=== PATIENT | female | born 1965 | race Caucasian/White ===

== ENCOUNTER → 2016-08-06 | Outpatient (CLI) | payer MEDICAID, MEDICARE, OTHER ==
[2015-11-19 08:55] VITALS: BP 150/90
[~2016-08-06] MED LIST: HYDR-2672 PO
--- NOTE | 2016-08-06 17:25 | RAD ---
Three-view study of the lumbar spine Clinical indications: Low back pain for a long time. Comparison: None available. Findings: Hypoplastic 12th ribs are seen. There is fusion of L4-5 and L5-S1. There is a minimal grade 1 anterolisthesis of L2-3. More prominent grade 1-2 anterolisthesis of L3-4 is seen which measures 11.5 mm. No radiolucent pars defect is seen on this study. There is degenerative facet arthropathy throughout the lumbar spine. No compression fracture or discitis or osteolytic process is seen. Mild dextroscoliosis is seen. There is mild degenerative endplate spurring and disc space narrowing at L1-2 and L2-3. There is moderate degenerative disc space narrowing and mild endplate spurring at L3-4. IMPRESSION: Grade 1 anterolisthesis of L2-3. Grade 1-2 anterolisthesis of L3-4. No compression fracture.
== END | disposition home or self-care (01) ==
LOC: RAD 16:04
PROVIDERS: ATTEND Neurological Surgery
DX: M43.16 Spondylolisthesis, lumbar region (principal); M54.5 Low back pain
CPT/HCPCS: 72100

== ENCOUNTER → 2016-08-13 | Outpatient (CLI) | payer MEDICARE ==
[2015-11-19 08:55] VITALS: BP 150/90
--- NOTE | 2016-08-13 16:16 | RAD ---
Right hip, 2 views, 08/13/2016: History: Hip pain, lumbar radiculopathy No fracture or dislocation is identified. There is mild joint space narrowing, moderate marginal spurring and subchondral sclerosis at the right hip joint. The periarticular soft tissues are unremarkable. There are moderate degenerative changes at the symphysis pubis. There are mild sclerotic changes at the right sacroiliac joint. IMPRESSION: 1. Moderate degenerative change at the right hip joint. 2. No acute bony abnormality is detected.
--- NOTE | 2016-08-13 16:20 | RAD ---
Lumbar spine, lateral flexion and extension views, 08/13/2016: History: Lumbar radiculopathy, spondylolisthesis Image is are correlated with the study from 08/06/2016. The bony structures are demineralized. There are multilevel degenerative changes as described on the previous study. There appears to been a previous posterolateral spinal fusion at L4-5. There is a grade 1-2 spondylolisthesis at L3-4 which does not change significantly on flexion and extension.
== END | disposition home or self-care (01) ==
LOC: RAD 15:39
PROVIDERS: ATTEND Neurological Surgery
DX: M54.16 Radiculopathy, lumbar region (principal); M25.551 Pain in right hip
CPT/HCPCS: 72120; 73502

== ENCOUNTER → 2016-08-30 | Outpatient (CLI) | payer MEDICARE ==
[2015-11-19 08:55] VITALS: BP 150/90
[~2016-08-30] MED LIST changes: +CYCL10TA2 PO; +DIAZ5TAB PO; +DOCU-27 PO; +OXYC-250 PO; +OXYC-323 PO; +OXYC1TAB8 PO; +VENTOLIN HFA18 GM INH
[2016-08-30 15:28] LABS: BASO % 1 % (0-3); EOS % 6 % (0-3); HEMATOCRIT 43.8 % (36.0-47.0); LYMPH # 2.5 x10^3/uL (1.0-4.8); LYMPH % 35 % (24-48); MEAN CORPUSCULAR HEMOGLOBIN 31 pg (25-35); MEAN CORPUSCULAR HGB CONC 34 g/dL (31-37); MEAN CORPUSCULAR VOLUME 91 fL (79-100); MONO % 7 % (0-9); NEUT % 52 % (31-73); PLATELET COUNT 336 x10^3/uL (140-400); RED BLOOD COUNT 4.83 x10^6/uL (3.50-5.40); RED CELL DISTRIBUTION WIDTH 12.8 % (11.5-14.5); WHITE BLOOD COUNT 7.1 x10^3/uL (4.0-11.0)
[2016-08-30 15:38] LABS: ALBUMIN 3.7 g/dL (3.4-5.0); ALBUMIN/GLOBULIN RATIO 0.9 (1.0-1.7); CALCIUM 9.6 mg/dL (8.5-10.1); CREATININE 0.8 mg/dL (0.6-1.0); GFR 75.3; POTASSIUM 4.1 mmol/L (3.5-5.1); TOTAL BILIRUBIN 0.3 mg/dL (0.2-1.0); TOTAL PROTEIN 7.7 g/dL (6.4-8.2)
[2016-08-30 15:40] LABS: PROTHROMBIN TIME PATIENT 12.8 SEC (11.7-14.0)
--- NOTE | 2016-09-04 01:13 | HP ---
ADMIT DATE: 09/08/2016 Kamlesh Davies RN dictating for Dr. Wilfred Nicholson. Date of surgery will be 09/08/2016. HISTORY OF PRESENT ILLNESS: The patient is a pleasant 51-year-old, who has a long history of low back pain and pain which radiates into both of her lateral thighs. The right side is much more involved than the left. She says her right leg gives out because of the pain. The problem has been present with regard to back pain since childhood. More recently, she has developed significant leg pain. She says her pain can vary between 5/10 to 10/10. Bending makes her problem worse. She says that when she is painful, she has had difficulty finding relief. She says she has tried physical therapy, but was too painful to proceed. She has had epidural steroid injections in the past and says that they gave her no significant relief. She is taking [place] 10/325 to help with her pain. She feels as though her lower extremities are weak. PAST MEDICAL HISTORY: Headaches/migraines, scarlet fever, shingles, wound infection. PAST SURGICAL HISTORY: Lumbar surgery in 1984, kidney infection in 1999. FAMILY HISTORY: Bleeding problems, cancer, diabetes, heart problem/disease, migraines, spine problems. SOCIAL HISTORY: Disabled. . Does not exercise. Smokes half pack per day and has for 40 years. Does not drink. Drinks coffee and tea. ALLERGIES: TO LATEX. CURRENT MEDICATION: [place]. REVIEW OF SYSTEMS: A 12-point review of systems was obtained and is noncontributory except for that mentioned above. PHYSICAL EXAMINATION: NEUROSURGERY EXAMINATION: GENERAL APPEARANCE: Alert, pleasant, in no acute distress. HEAD: Normocephalic and atraumatic. SKIN: Warm and dry. MUSCULOSKELETAL: Lumbar paraspinal muscle bulk is normal, restricted range of motion of lumbar spine, lxeq-yv-eswlyyrn tenderness of lower lumbar spine with palpation, normal range of motion of the lower extremities bilaterally. EXTREMITIES: No clubbing, cyanosis, or edema. NEUROLOGIC: Alert and oriented x 3, normal recent and remote memory, strength 5/5 in bilateral lower extremities, sensory was intact to light touch in the bilateral lower extremities, reflexes were trace and symmetric in the lower extremities bilaterally, positive straight leg raising on the right, negative straight leg raising on the left, normal gait. IMAGING: I reviewed a lumbar MRI scan. On that study, there was spondylolisthesis at what I will call L4-L5, but which is called L3-L4 on the MRI scan. This is associated with severe lumbar stenosis. ASSESSMENT/ PLAN: She has severe lumbar spinal stenosis and spondylolisthesis at L4-L5. On flex/ ext films, there is motion at L4-5. I recommended a decompression as well as an instrumented interbody fusion at L4-5. We spoke about the technique, risks as well as expected post op course. She understands and would like to proceed. WILFRED NICHOLSON MD DR: CALLIE/lynette JOB#: [id number] / [id number] LANETTE
--- NOTE | 2016-09-04 01:20 | HP ---
ADMIT DATE: 09/08/2016 Kamlesh Davies, dictating for Dr. Wilfred Nicholson. DATE OF SURGERY: 09/08/2016 HISTORY OF PRESENT ILLNESS: The patient is a pleasant 51-year-old who has a long history of low back pain. She says she has constant back pain and rates as a 7/10. Bending and activity increase her pain. She takes [place] 10/325 twice a day. When I saw her last, I obtained flexion and extension x-rays as well as hip films. She said that since I saw her last, which is about one month ago, she has had increased pain in her lower back. Her right leg continues to be painful for her. She is fearful and may give out and is using a cane at this time. PAST MEDICAL HISTORY: Headaches, migraines, scarlet fever, shingles, wound infections. PAST SURGICAL HISTORY: Lumbar surgery in 1994, kidney infection in 1999. FAMILY HISTORY: Bleeding problems, cancer, diabetes, heart problem/disease, migraine headaches, and spine problems. SOCIAL HISTORY: Disabled. . Does not exercise. Smokes a half a pack per day for 40 years. Does not drink alcohol. Drinks coffee and tea. ALLERGIES: Latex. CURRENT MEDICATIONS: [place]. REVIEW OF SYSTEMS: A 12-point review of systems was obtained and is noncontributory except for that mentioned above. PHYSICAL EXAMINATION: NEUROSURGERY EXAMINATION: GENERAL APPEARANCE: Alert, pleasant, no acute distress. HEAD: Normocephalic and atraumatic. SKIN: Warm and dry. MUSCULOSKELETAL: Lumbar paraspinal muscle bulk is normal, restricted range of motion of the lumbar spine, pior-qe-dvgazfks tenderness of the lower lumbar spine with palpation, normal range of motion of the lower extremities bilaterally. EXTREMITIES: No clubbing, cyanosis, or edema. NEUROLOGIC: Alert and oriented x 3, normal recent and remote memory, strength 5/5 in bilateral lower extremities, sensory was intact to light touch in the lower extremities bilaterally, reflexes were present and symmetric in bilateral lower extremities, positive straight leg raising on the right side, negative straight leg raising on the left side, normal gait. IMAGING: I reviewed a lumbar MRI scan. On that study, there is a grade 1 anterolisthesis of L4-L5. She has fusion of L5-S1. There is a small grade 1 anterolisthesis of L2-L3. On the plain films, the spondylolisthesis increases to a grade 1-2 at L4-L5. There is no significant change with flexion and extension. I reviewed right hip films in which there is moderately severe degenerative arthritis of the right hip joint seen. ASSESSMENT/ PLAN: She has severe central canal stenosis with trefoil shaped canal at L4-L5. At this level when comparing her plain films, in which a grade 1-2 spondylolisthesis is seen at L4-L5 to her lumbar MRI scan, which was done with the patient supine, in which a grade 1 listhesis is seen. To help her, she will need a wide decompression at L4-L5, which I would combine with an instrumented fusion and anterior interbody fusion. I discussed with her this in detail including the technique, risks, and expected postoperative course. She would like to proceed. We will make the arrangements. WILFRED NICHOLSON MD DR: CALLIE/lynette JOB#: [id number] / [id number] LANETTE
== END | disposition home or self-care (01) ==
LOC: SURGPAT 13:45
PROVIDERS: ATTEND Neurological Surgery
DX: M48.06 Spinal stenosis, lumbar region (principal); M43.16 Spondylolisthesis, lumbar region
CPT/HCPCS: 36415; 80053; 85027; 85610; 85730; 87641

== ENCOUNTER 2016-09-08 06:32 | Inpatient (IN) | payer MEDICARE, MEDICAID ==
[~2016-09-08] VITALS: Ht 162.6 cm; Wt 76.2 kg
[2016-09-08] VITALS (10 sets, daily range): BP systolic 114–144; BP diastolic 74–98
[~2016-09-08 06:32] MED LIST changes: +CEFAZOLIN 2GM PREMIX 50 ML IV PRN; -CYCL10TA2 PO; -DIAZ5TAB PO; -DOCU-27 PO; -OXYC-250 PO; -OXYC1TAB8 PO
[2016-09-08] MEDS ORDERED: THROMBIN 20,000 UNIT SPRAY.SYRN KIT TP ONE (06:45)
[2016-09-08] MEDS ORDERED: KETOROLAC 60 MG/2 ML SYRINGE FOR OR. ONE (06:45)
[2016-09-08] MEDS ORDERED: GELATIN SPONGE SIZE 100. ONE (06:45)
[2016-09-08] MEDS ORDERED: BUPIVAC MPF-EPI 0.5%-1:200000 30 ML VIAL. ONE (06:46)
[2016-09-08] MEDS ORDERED: IV RINGERS,LACTATED 1000ML 1,000 ML IV SCH (07:00)
[2016-09-08] MEDS ORDERED: FENTANYL PF 100 MCG/2 ML VIAL. IV PRN ×2 (07:00→14:15)
[2016-09-08] MEDS ORDERED: LIDOCAINE 1% 1 ML SYRINGE. ID PRN (07:00)
[2016-09-08] MEDS ORDERED: ONDANSETRON PF 4 MG/2 ML VIAL. IV PRN ×2 (07:00→14:15)
[2016-09-08] MEDS ORDERED: MORPHINE SULFATE 2 MG/ML DISP.SYRIN. IV PRN (07:00)
[2016-09-08] MEDS ORDERED: PROCHLORPERAZINE 10 MG/2 ML VIAL. IV PRN (07:00)
[2016-09-08] MEDS ORDERED: HYDROMORPHONE 2 MG/ML VIAL. IV PRN (07:00)
[2016-09-08] MEDS ORDERED: BACITRACIN 50,000 UNIT in IV NORMAL SALINE 1000ML BAG 1,000 ML IRR ONE (08:00)
[2016-09-08] MEDS ORDERED: PROPOFOL 20 ML IV ONE (08:05)
[2016-09-08] MEDS ORDERED: REMIFENTANIL 2 MG VIAL. IV ONE (08:05)
[2016-09-08] MEDS ORDERED: LIDOCAINE 2% 100 MG/5 ML DISP.SYRIN. ONE (08:05)
[2016-09-08] MEDS ORDERED: PROPOFOL 50 ML IV ONE ×3 (08:05→13:39)
[2016-09-08] MEDS ORDERED: FENTANYL PF 100 MCG/2 ML VIAL. ONE (08:05)
[2016-09-08] MEDS ORDERED: 0.9 % SODIUM CHLORIDE 50 ML VIAL. IJ ONE (08:05)
[2016-09-08] MEDS ORDERED: SUCCINYLCHOLINE 200 MG/10 ML VIAL. ONE (08:06)
[2016-09-08] MEDS ORDERED: ROCURONIUM 50 MG/5 ML VIAL. ONE (08:06)
[2016-09-08] MEDS ORDERED: MIDAZOLAM HCL 2 MG/2 ML VIAL. ONE (08:26)
[2016-09-08] MEDS ORDERED: DESFLURANE > 120 MINUTES IH ONE (08:57)
[2016-09-08] MEDS ORDERED: DEXAMETHASONE SOD PHOS 20 MG/5 ML VIAL. ONE (08:57)
[2016-09-08] MEDS ORDERED: EPHEDRINE PF IN SALINE 50 MG/5 ML DISP.SYRIN. IV ONE (09:33)
--- NOTE | 2016-09-08 09:50 | RAD ---
CT of the lumbar spine without contrast, 09/08/2016: History: Lumbar stenosis, spondylolisthesis, brain lab study Noncontrast scans were obtained with multiplanar reconstructions produced. The data was transferred to the operating room to aid in the patient's stereotactically guided surgery. The following findings are delineated: 1. At L1-2 there is mild posterior disc bulging. The thecal sac measures 10 mm in AP dimension. The neural foramina are well maintained. 2. At L2-3 there is moderate broad-based posterior disc bulging. There are moderate least severe degenerative changes involving the facet joints, particularly on the left, with moderate posterior ligamentous thickening. The combination of findings is causing mild central spinal stenosis and mild foraminal encroachment on the left. 3. At L3-4 there are severe hypertrophic degenerative changes involving the facet joints with posterior ligamentous thickening and ligamentous calcification. There is a mild associated spondylolisthesis. There is a vacuum disc phenomena with posterior spurring and moderate broad-based posterior disc bulging. The combination is of findings is causing moderately severe central spinal stenosis and moderate bilateral foraminal encroachment at this level. 4. At L4-5 there is disc space narrowing with disc calcification and mild posterior spurring. The facet joints are partially fused, apparently on a postsurgical basis. The central spinal canal and neural foramina are widely patent at this level. 5. L5 appears to be partially sacralized. At L5-S1 the central spinal canal is slightly narrowed. The neural foramina are widely patent. PQRS Compliance Statement: One or more of the following individualized dose reduction techniques were utilized for this examination: 1. Automated exposure control 2. Adjustment of the mA and/or kV according to patient size 3. Use of iterative reconstruction technique
[2016-09-08] MEDS ORDERED: ONDANSETRON PF 4 MG/2 ML VIAL. ONE (09:55)
[2016-09-08] MEDS ORDERED: PHENYLEPHRINE in 0.9% NACL PF 1 MG/10 ML DISP.SYRIN. IV ONE (10:12)
[2016-09-08] MEDS ORDERED: DIPHENHYDRAMINE 50 MG/ML VIAL ONE (11:50)
[2016-09-08] MEDS ORDERED: CEFAZOLIN PREMIX 2 GM/50 ML BAG. IV ONE ×2 (13:00)
[2016-09-08] MEDS ORDERED: CEFAZOLIN 2GM PREMIX 50 ML IV ONE (13:30)
[2016-09-08] MEDS ORDERED: REMIFENTANIL 1 MG VIAL. IV ONE (13:55)
[2016-09-08] MEDS ORDERED: DIPHENHYDRAMINE HCL 25 MG CAPSULE PO PRN (14:15)
[2016-09-08] MEDS ORDERED: MAGNESIUM HYDROXIDE 2,400 MG/30 ML ORAL.SUSP. PO PRN (14:15)
[2016-09-08] MEDS ORDERED: ACETAMINOPHEN 325 MG TABLET. PO PRN (14:15)
[2016-09-08] MEDS ORDERED: 0.9 % SODIUM CHLORIDE 10 ML DISP.SYRIN. IV PRN (14:15)
[2016-09-08] MEDS ORDERED: DIPHENHYDRAMINE 50 MG/ML VIAL IV PRN (14:15)
[2016-09-08] MEDS ORDERED: CALCIUM CARBONATE 500 MG TAB.CHEW PO PRN (14:15)
[2016-09-08] MEDS ORDERED: ZOLPIDEM 5 MG TABLET. PO PRN (14:15)
[2016-09-08] MEDS ORDERED: MAG HYDROX/ALUMINUM HYD/SIMETH 30 ML ORAL.SUSP PO PRN (14:15)
[2016-09-08] MEDS ORDERED: OXYCODONE/APAP 5/325 TABLET. PO PRN (14:15)
[2016-09-08] MEDS: FENTANYL PF 100 MCG/2 ML VIAL. IV PRN ×7 (15:21→23:27)
[2016-09-08] MEDS ORDERED: ACETAMINOPHEN INTRAVENOUS 100 ML IV ONE (15:30)
[2016-09-08] MEDS ORDERED: ACETAMINOPHEN INTRAVENOUS 100 ML IV PRN (15:45)
[2016-09-08] MEDS: ALBUTEROL SULFATE 2.5 MG/3 ML NEBU. NEB SCH ×3 (16:00→23:16)
[2016-09-08] MEDS ORDERED: NON FORMULARY ITEM (Albuterol Sulfate (Ventolin Hfa Inhaler) 2 PUFF) INH SCH (16:00)
[2016-09-08] MEDS: POTASSIUM CL 20MEQ D5-0.45NACL 1,000 ML IV SCH (16:44)
[2016-09-08] MEDS: CEFAZOLIN SODIUM 1 GM in IV NORMAL SALINE 50ML 50 ML IV SCH ×2 (17:40→22:49)
[2016-09-08] MEDS: OXYCODONE/APAP 5/325 TABLET. PO PRN ×2 (17:45→22:49)
[2016-09-08] MEDS: CYCLOBENZAPRINE 10 MG TABLET. PO PRN (17:46)
[2016-09-08] MEDS: DOCUSATE SODIUM 100 MG CAPSULE PO SCH (22:48)
[2016-09-09] MEDS ORDERED: PNEUMOCOCCAL VAX SCREEN BY RX. MC PRN
--- NOTE | 2016-09-09 00:03 | OP ---
DATE OF SURGERY: 09/08/2016 ANTERIOR LUMBAR INTERBODY FUSION Posterior portion of the surgery has been dictated along with the preoperative and postoperative diagnosis and the indications for surgery. SURGEON: Wilfred Nicholson M.D. COMBINATION WELDER APPRENTICE: Yuri Winter M.D. DESCRIPTION OF PROCEDURE: The table was tilted away and I made an incision in the right posterior flank. I dissected it down the subcutaneous tissue and then passed the long BrainLAB probe with a sheath down to dock at the attachment of the lateral portion of the pedicle of L5 on the right just below the disc space and moved superiorly and positioned the sheath at the inferior aspect of the disc space. The nerve root was just lateral to me and stimulating, there was no evidence of contact with the nerve. I passed a K-wire and then a dilator and then a sheath and then a working channel and entered into the disc space. Through the working channel, then I performed a very generous discectomy using pituitaries as well as the endplate scrapers and frequently used the BrainLAB system to ensure that I removed a significant portion of the disc. I then passed the dilator, removed the working channel, placed the shield to again protect the outer exiting root, which was lateral to me. I along this path placed autograft bone into the disc space gently, which was packed with autograft bone. I then tapped into position a 9 mm trial and took fluoroscopic images, which I felt were satisfactory. I removed the trial and prepared the cage, which was then packed with allograft and autograft bone and then this was gently passed down the shield and again under electrophysiologic monitoring, tapped into the disc space. Fluoroscopic images showed excellent position and I released the cage, irrigated, removed the cage novelty dipper as well as the shield and then the patient was tilted back to the prone position for the remainder of the surgery. I felt this portion had gone very well. WILFRED NICHOLSON MD DR: CALLIE/lynette JOB#: [id number] / [id number] LANETTE
--- NOTE | 2016-09-09 00:36 | OP ---
DATE OF SURGERY: 09/08/2016 PREOPERATIVE DIAGNOSES: 1. Spondylolisthesis with motion, L4-L5. 2. Severe lumbar spinal stenosis, L4-L5. OPERATION PERFORMED: Lumbar laminectomy, L4-L5; posterior instrumentation, L4-L5 with posterolateral fusion, L4-L5. The operation also included an anterior lumbar discectomy, L4-L5 with an anterior interbody fusion, L4-L5 using allograft and autograft bone with placement of interbody fusion cage. The operation was done with stimulated EMG monitoring, fluoroscopy, microscopic dissection, BrainLAB guidance, bone marrow aspiration. SURGEON: Wilfred Nicholson M.D. BOTANY LABORATORY ASSISTANT: Yuri Winter MD assisted with the surgery. He assisted with the exposure, the microdecompression, instrumentation, posterolateral fusion as well as the anterior discectomy and fusion. AMILCAR Diaz assisted with the closure. OPERATIVE INDICATIONS: The patient is a pleasant 51-year-old who has developed severe lower back and lower extremity pain to the point that she was using a cane to help with ambulation. She has failed conservative measures and on imaging studies, had the above-mentioned findings. I recommended decompression and instrumented fusion. She had previously undergone a fusion at L5-S1. She understood the surgery and the risks and she understood the technique of the operation. She wished to go ahead. DESCRIPTION OF PROCEDURE: Following general endotracheal anesthesia, the patient was positioned prone on the Seth table. Her lumbar region was then prepped and draped in a standard fashion. SONJA hose and AV impulse boots were applied for DVT prophylaxis. A microscope was draped. Fluoroscopy was draped and brought into the field. Monitoring was established. Ancef 2 g was given less than 1 hour prior to initiation of the surgery. Using fluoroscopic guidance, iliac pins were placed in the left iliac crest. The BrainFieldAware system was initialized. An incision was made over the L4-L5 vertebral bodies posteriorly. Dissection was carried down to skin and subcutaneous tissue and the paraspinal muscles were reflected and self-retaining retractors were placed. The lamina and the transverse processes of L4 and L5 were visualized. Using the high speed air drill, I drilled into the posterior aspect of the pedicles of L4 and L5. Again, using the high speed air drill as well as anatomic landmarks, I passed a black ball, followed by the ball tip probe, followed by tap and on the left side, placed pedicle screws after I had aspirated 20 mL of bone marrow from the left iliac crest and mixed this with allograft bone, which was then packed into the left lateral gutter after excoriating the transverse processes and lateral facets. I used the Innovasis system and used 6.5 pedicle screws at L4 and L5. The violet was placed and nuts were placed and the system was not torqued. I then went to the right side and in a similar fashion, I cannulated the pedicles of L4 and L5, although screws were not placed at this point. I did excoriate the transverse processes and lateral facet and packed allograft bone into the right lateral gutter. I then brought in the microscope at this time and through the microscope using the high speed air drill, I burred down a very generous laminotomy on the left and crossed over and created a laminectomy from left to right trimming away the spinous process and saving this bone, morcellizing this bone for use later with the anterior fusion. I drilled away the bone on the right side, performing a generous partial foraminotomy on the right and in order to decompress, worked laterally over the facet on the right side at L4-L5. Again, I saved the bone for use with the fusion. The ligamentum flavum was heavily calcified and partly scarred to the underlying dura and I worked very gently and delicately and freed this material and peeled this off of the dura, both on the right and left sides and created a wide exposure extending from the upper mid body of L4 through the mid body of L5. This accomplished, then the pedicle screws were placed into L4 and L5. The violet was placed and I did distract slightly on the right side and then the anterior portion of the procedure was done and this will be a separate dictation. Completing the anterior portion, I then worked to help reduce the spondylolisthesis. I then explored carefully and I assured myself that the dura and the exiting roots were quite free. I did lay Gelfoam over the exposed dura and nerve root surface, irrigated copiously and then I closed the wound in layers with absorbable suture. The skin was closed with a 4-0 subcuticular stitch. The operation went very well and the patient was taken uneventfully to recovery room with normal strength in her lower extremities and was quite pleased with the surgery. WILFRED Sandip NICHOLSON MD DR: CALLIE/lynette JOB#: [id number] / [id number] LANETTE
[2016-09-09] MEDS: FENTANYL PF 100 MCG/2 ML VIAL. IV PRN ×5 (02:48→14:10)
[2016-09-09] MEDS: CYCLOBENZAPRINE 10 MG TABLET. PO PRN ×3 (02:48→14:09)
[2016-09-09 02:59] VITALS: BP 103/59
[2016-09-09] MEDS: ALBUTEROL SULFATE 2.5 MG/3 ML NEBU. NEB SCH ×3 (03:22→10:58)
[2016-09-09] MEDS: POTASSIUM CL 20MEQ D5-0.45NACL 1,000 ML IV SCH (03:30)
[2016-09-09] MEDS: OXYCODONE/APAP 5/325 TABLET. PO PRN ×3 (04:20→12:54)
[2016-09-09] MEDS: CEFAZOLIN SODIUM 1 GM in IV NORMAL SALINE 50ML 50 ML IV SCH (04:21)
[2016-09-09 06:27] VITALS: BP 95/60
[2016-09-09] MEDS: DOCUSATE SODIUM 100 MG CAPSULE PO SCH (08:24)
[2016-09-09] MEDS ORDERED: PNEUMOC CONJ VACC 23-VALENT 0.5 ML VIAL. VAX IM ONE (09:00)
[2016-09-09 11:01] VITALS: BP 93/64
--- NOTE | 2016-09-09 12:54 | DISCH ---
DISCHARGE INSTRUCTIONS Condition on Discharge Condition on Discharge: Stable Activity After Discharge Activity Instructions for Disc: Activity as tolerated, Avoid exertion Bathing Instructions: Shower-keep dressing dry Lifting Instructions after Dis: No heavy lifting, No pulling or pushing, Do not lift >10 pounds Driving Instructions after Dis: No driving for 2 weeks Diet after Discharge Additional Diet Restrictions: resume home diet Wound Incision Care Wound/Incision Care: Ice to area for comfort Other wound/incision instructi: may remove dressing in 48 hrs if dry then may shower- no soaking Contacting the [facility] after DC Call your doctor for: Concerns you may have Follow-Up Follow up with: Dr. Dunbar in 2 weeks [phone] Treatment/Equipment after DC Adaptive Equipment Issued: SONIA Mena MD Sep 09, 2016 12:54
[2016-09-09] MEDS ORDERED: OXYC1TAB8 PO (12:56)
[2016-09-09] MEDS ORDERED: DOCU-27 PO (12:56)
[2016-09-09] MEDS ORDERED: CYCL10TA2 PO (12:56)
[2016-09-09] MEDS ORDERED: OXYCODONE/APAP 7.5/325 TABLET. PO PRN ×2 (13:00)
--- NOTE | 2016-09-09 22:15 | DS ---
DATE OF DISCHARGE: 09/09/2016 DISCHARGE DIAGNOSES: 1. Spondylolisthesis with motion L4-L5. 2. Severe lumbar spinal stenosis L4-L5. OPERATIONS PERFORMED: Lumbar laminectomy L4-L5 with posterior instrumentation L4-L5 with posterior lateral fusion L4-L5, anterior lumbar diskectomy L4-L5 with anterior interbody fusion L4-L5. HISTORY OF PRESENT ILLNESS: The patient is a pleasant 51-year-old who developed severe lower back pain and lower extremity pain to the point where she was using a cane with ambulation. She failed to improve with conservative measures. Imaging studies had the above-mentioned findings. I recommended decompression and instrumented fusion. She had undergone a previous surgery at L5-S1. She understood the surgery and the risks and wished to proceed with surgery. HOSPITAL COURSE: She was admitted to the floor postoperatively where she did well. She was able to be up ambulating in the room and in the halls. Physical therapy was initiated. Instruction was given to her regarding her activities. She does note improvement in her pain from pre-surgery. Her pain is well controlled and she is in good condition to discharge home. DISCHARGE MEDICATIONS: She will resume her medications per the [facility]AD. DISCHARGE INSTRUCTIONS: She was instructed regarding incision care, activity restrictions and expectations for the next several weeks. She will follow up in our office in 2 weeks. She understands to call with any questions or concerns. SONIA NICHOLSON MD DR: ASUNCION/lynette JOB#: [id number] / [id number]
--- NOTE | 2016-09-10 12:19 | HP ---
DUPLICATE SONIA Sandip NICHOLSON MD DR: Sulaiman JOB#: [id number] / [id number] LANETTE
--- NOTE | 2016-09-10 14:54 | PATHOLOGY ---
PATHOLOGY REPORT * * * * * * * * FINAL DIAGNOSIS: Segments of fibrocartilaginous and fibroadipose tissue and bone, lumbar disc and decompression: - Degenerative changes of fibrocartilaginous tissue. COMMENT: There is no evidence of an acute inflammatory process or malignancy. (JPM:; d/t: 09/10/16) REPORT ELECTRONICALLY SIGNED BY: Navin Shaikh M.D. DATE/TIME: 09/10/2016 14:53 * * * * * * * * GROSS PATHOLOGY: Received in formalin labeled "Tamy Riggs and lumbar disc and decompression," are multiple segments of blood-tinged, white-myers to pink-myers, rubbery, and gritty tissue admixed with possible bone measuring 8.7 x 6.3 x 1.0 cm in aggregate dimensions. The tissue is submitted representatively in cassette A1, following decalcification. (TTL; 09/09/2016) INITIAL CPT CODE(S): A; 16536, 53931 Professional services performed by [facility] [address] Technical services performed by [facility] at [address] [place] [address]. SPECIMEN(S) RECEIVED: A.Lumbar disc and decompression CLINICAL HISTORY: Stenosis, spondylolisthesis PATIENT: TAMY RIGGS /AGE: 7 1965 (Age: 51) PATIENT #: [id number] ALT CASE #: SPECIMEN COLLECTION DATE: 09/08/2016 SPECIMEN RECEIVED DATE: 09/09/2016 [facility] - [address] [place] [address] - PHONE: [phone] * * * END OF REPORT * * *
== END 2016-09-09 14:45 | disposition home or self-care (01) | DRG 460 ==
LOC: OPSVCIP 06:32 → 4 SOUTHEST 16:27
PROVIDERS: ADMIT Neurological Surgery; ATTEND Neurological Surgery
PROC: 0SB20ZZ Excision of Lumbar Vertebral Disc, Open Approach (ICD-10-PCS; 2016-09-08)
PROC: 07DR3ZZ Extraction of Iliac Bone Marrow, Percutaneous Approach (ICD-10-PCS; 2016-09-08)
PROC: 0SG0071 Fusion of Lumbar Vertebral Joint with Autologous Tissue Substitute, Posterior Approach, Posterior Column, Open Approach (ICD-10-PCS; 2016-09-08)
PROC: 4A1004G Monitoring of Central Nervous Electrical Activity, Intraoperative, Open Approach (ICD-10-PCS; 2016-09-08)
PROC: 0SG00AJ Fusion of Lumbar Vertebral Joint with Interbody Fusion Device, Posterior Approach, Anterior Column, Open Approach (ICD-10-PCS; principal; 2016-09-08 09:00)
DX: M48.06 Spinal stenosis, lumbar region (principal); M43.16 Spondylolisthesis, lumbar region; G43.909 Migraine, unspecified, not intractable, without status migrainosus; M54.10 Radiculopathy, site unspecified; Z83.3 Family history of diabetes mellitus; Z87.440 Personal history of urinary (tract) infections; Z87.891 Personal history of nicotine dependence; Z91.040 Latex allergy status
CPT/HCPCS: 36415; 72131; 76000; 86850; 86900; 86901; 88304; 88311; 90732; 94640; 94760; C1713; J0131; J0330; J0690; J0780; J1100; J1200; J1885; J2250; J2370; J2405; J2704; J3010; J3490; J7030; J7120

== ENCOUNTER 2016-09-12 19:39 | Inpatient (IN) | payer MEDICARE, MEDICAID ==
[~2016-09-12] VITALS: Ht 162.6 cm; Wt 73.9 kg
[~2016-09-12 19:39] MED LIST changes: -CEFAZOLIN 2GM PREMIX 50 ML IV PRN; +CYCL10TA2 PO; +DOCU-27 PO; +OXYC1TAB8 PO
[2016-09-12] MEDS ORDERED: HYDROMORPHONE 2 MG/ML VIAL. IV ONE (20:15)
[2016-09-12] MEDS ORDERED: DIAZEPAM 10 MG/2 ML DISP.SYRIN. IV ONE (20:15)
--- NOTE | 2016-09-12 20:19 | ED.ADGEN ---
Past Medical History Past Medical History: Other Additional Past Medical Histor: SPINAL STENOSIS Past Surgical History: Hysterectomy, Other Additional Past Surgical Histo: MULTIPLE BACK SURGERY, BREAST AUGMENTATION, BUNION Additional Information: 0.5PPD Alcohol Use: None Drug Use: None Adult General Chief Complaint Chief Complaint: POST-OP PROBLEM HPI HPI Patient is a 51 year old female presents emergency department complaining of left-sided back pain. She did have a spinal fusion done 5 days ago. Immediately after surgery she stated that she has significant pain relief quickly on the right side were most of her pain had been previously. However, 3 days ago she began to develop left-sided pain. She was started on a Medrol Dosepak yesterday and thought she might be getting better but today states that she cannot bear any weight on that leg due to the sensitivity of it. She describes it as a "nerve" pain. She has been using her Percocet without any relief. She denies any fevers, chills, nausea, vomiting, bowel or bladder dysfunction. She denies any new trauma or injury to the area. Review of Systems Review of Systems Constitutional: Denies fever or chills. [] Eyes: Denies change in visual acuity. [] HENT: Denies nasal congestion or sore throat. [] Respiratory: Denies cough or shortness of breath. [] Cardiovascular: Denies chest pain or edema. [] GI: Denies abdominal pain, nausea, vomiting, bloody stools or diarrhea. [] : Denies dysuria. [] Musculoskeletal: Denies back pain or joint pain. [] Integument: Denies rash. [] Neurologic: Denies headache, focal weakness or sensory changes. [] Endocrine: Denies polyuria or polydipsia. [] Lymphatic: Denies swollen glands. [] Psychiatric: Denies depression or anxiety. [] Current Medications Current Medications Current Medications Medications (Trade) Dose Ordered Sig/Kelvin Start Time Stop Time Status Last Admin Dose Admin Diazepam (Valium) 5 mg 1X ONCE 09/12/16 20:15 09/12/16 20:16 DC 09/12/16 20:37 5 MG Hydromorphone HCl (Dilaudid) 1 mg 1X ONCE 09/12/16 20:15 09/12/16 20:16 DC 09/12/16 20:36 1 MG Morphine Sulfate 4 mg 4 mg PRN Q2HR PRN 09/12/16 21:00 09/13/16 20:59 Ondansetron HCl (Zofran) 4 mg PRN Q8HRS PRN 09/12/16 21:00 09/13/16 20:59 Sodium Chloride (Iv Sodium Chloride 0.9% 1000ml Bag) 1,000 ml @ 100 mls/hr Q10H 09/12/16 20:55 09/13/16 20:54 Allergies Allergies Allergies Coded Allergies Type Severity Reaction Last Updated Verified Latex, Natural Rubber Allergy Intermediate Itching 09/08/16 Yes Physical Exam Physical Exam Constitutional: Well developed, well nourished, no acute distress, non-toxic appearance. [] HENT: Normocephalic, atraumatic, bilateral external ears normal, oropharynx moist, no oral exudates, nose normal. [] Eyes: PERRLA, EOMI, conjunctiva normal, no discharge. [] Neck: Normal range of motion, no tenderness, supple, no stridor. [] Cardiovascular:Heart rate regular rhythm, no murmur [] Lungs & Thorax: Bilateral breath sounds clear to auscultation [] Abdomen: Bowel sounds normal, soft, no tenderness, no masses, no pulsatile masses. [] Skin: Warm, dry, no erythema, no rash. [] Back: Midline incision that is clean dry and intact without signs of infection, lumbar spine is exquisitely tender to palpation. [] Extremities: No tenderness, no cyanosis, no clubbing, ROM intact, no edema. [] Neurologic: Alert and oriented X 3, normal motor function, normal sensory function, no focal deficits noted. [] Psychologic: Affect normal, judgement normal, mood normal. [] Current Patient Data Vital Signs Vital Signs Date Time Temp Pulse Resp B/P Pulse Ox O2 Delivery O2 Flow Rate FiO2 09/12/16 20:36 98 Room Air 09/12/16 19:59 98.1 101 20 131/75 98.1 EKG EKG [] Radiology/Procedures Radiology/Procedures [] Course & Med Decision Making Course & Med Decision Making Pertinent Labs and Imaging studies reviewed. (See chart for details) I spoke with Dr. Sheehan who requests that we work on pain control, obtain plain films, obtain CT scans, and have the patient admitted for pain control tonight. The patient and her family are in agreement and appreciative of this plan. Pain was improved at time of admission. [] Dragon Disclaimer Dragon Disclaimer This electronic medical record was generated, in whole or in part, using a voice recognition dictation system. DEIDRE PIPER MD Sep 12, 2016 20:19
[2016-09-12] MEDS: IV NORMAL SALINE 1000ML BAG 1,000 ML IV SCH (20:55)
[2016-09-12] MEDS ORDERED: ONDANSETRON PF 4 MG/2 ML VIAL. IV PRN (21:00)
--- NOTE | 2016-09-12 21:17 | RAD ---
PROCEDURE CT lumbar spine without contrast. HISTORY New onset postoperative pain. Left-sided radiating from back down to ankle. Four days post fusion. TECHNIQUE Helical CT imaging of the lumbar spine is performed without IV contrast. COMPARISON None. FINDINGS There appears to be transitional lumbosacral anatomy. L5 appears sacralized. Counting from above, there is posterior fusion with bilateral pedicle screws of L3-L4. There is L3/L4 interbody spacer. There is grade 1 anterolisthesis of L3 on L4. There is posterior decompression. Tiny bubble of air is seen posterior to the central canal. Evaluation at the level of fusion is limited due to beam hardening artifact from the hardware. There is posterior paraspinal soft tissue density that is probably postsurgical. No evidence of an organized fluid collection is seen, evaluation is limited. There is disc space narrowing of L4/L5. Other disc spaces are maintained. Except as above, alignment is maintained. No loss of vertebral body height is seen. There is posterior disc bulge and facet hypertrophy at L2/L3. There appears to be moderate central canal stenosis. Neural foramina are patent. Suggest correlation with prior imaging. Irregularity at the superior endplate of T12 due to Schmorl's node. Minimal atelectasis in the posterior lower lobes. There may be small bilateral extrarenal pelvis. IMPRESSION 1. Post posterior fusion of L3-L4 with interbody spacer and posterior decompression. Grade 1 anterolisthesis of L3 on L4. Postoperative changes. No unexpected finding. 2. No acute compression fracture. 3. Degenerative spondylosis of L2/L3. Electronically signed by: Bryn Winslow MD (Sep 12, 2016 21:15:50)
--- NOTE | 2016-09-12 22:01 | ACF ---
Admission Forms Criteria PAIN MANAGEMENT [facility] Clinical Indications for Admission to Inpatient Care (Place 'X' for any and all applicable criteria): Hospital admission is needed for appropriate care of the patient because of ANY ONE of the following are present (1)(2)(3)(4)(5): [ ]I. Severe pain requiring acute inpatient management as indicated by ALL of the following (2)(5)(10): [ ]a) Continuous or frequent (eg, every 2 to 4 hours) parenteral analgesics required [A] [ ]b) Necessity (ie, alternative approaches not effective) for analgesic regimen that can only be performed or initiated in inpatient setting [X]II. Pain causing debilitation to the point of inability to function or be supported at any other level of care [ ]III. Severe side effects from pain medications as indicated by ANY ONE of the following (12)(13)(14)(15): [ ]a) Uncontrollable seizures [ ]b) Cardiac arrhythmias [ ]c) Severe volume depletion [ ]d) Vomiting that is uncontrollable at any other level of care [ ]e) Altered mental status (Gasper coma scale score less than 13) [ ]f) Obstipation with inadequate GI function to maintain nutrition [ ]g) Dehydration that is severe or persistent The original [employer] content created by [employer] has been revised. The portions of the content which have been revised are identified through the use of italic text or in bold, and [facility] has neither reviewed nor approved the modified material. All other unmodified content is copyright [employer]. Please see references footnoted in the original [facility] edition 2016 Admission Criteria Met?: Yes KASIA NASH Sep 12, 2016 22:01
[2016-09-12 23:38] VITALS: BP 125/78
[2016-09-12] MEDS: MORPHINE SULFATE 4 MG/ML DISP.SYRIN. IV PRN (23:43)
[2016-09-12] MEDS: DIAZEPAM 5 MG TABLET PO PRN (23:54)
[2016-09-13 03:12] VITALS: BP 119/64
[2016-09-13] MEDS: IV NORMAL SALINE 1000ML BAG 1,000 ML IV SCH (06:55)
[2016-09-13 07:00] VITALS: BP 84/43
--- NOTE | 2016-09-13 07:53 | RAD ---
Lumbar spine, 3 views, 09/12/2016: History: Back and leg pain Comparison is made to a study from 08/13/2016. There is a transitional type vertebrae at the lumbosacral junction which has been considered to be a sacralized L5 segment on previous exams. There is posterolateral bone graft in the lower lumbar region. Bilateral pedicle screws have been placed at L3 and L4 attached to a longitudinally oriented posterior fixation rods. There is a partially radiopaque disc spacer at this level. There appears to be an underlying laminectomy defect. There is a grade 1 spondylolisthesis at L3-4, similar to that seen on the previous exam. No acute fracture is identified. There are mild scattered marginal spurs. IMPRESSION: 1. Postsurgical changes as described above. 2. Ongoing grade 1 spondylolisthesis at L3-4. 3. No acute bony abnormality is detected.
[2016-09-13] MEDS ORDERED: OXYCODONE/APAP 7.5/325 TABLET. PO PRN (10:00)
[2016-09-13] MEDS: NICOTINE 21MG PATCH. TD SCH (10:00)
[2016-09-13] MEDS: DOCUSATE SODIUM 100 MG CAPSULE PO SCH ×2 (10:00→21:50)
[2016-09-13] MEDS: DEXAMETHASONE SOD PHOS 4 MG/ML VIAL IV SCH ×2 (10:00→18:34)
[2016-09-13] MEDS: MORPHINE SULFATE 4 MG/ML DISP.SYRIN. IV PRN ×4 (10:01→20:42)
[2016-09-13] MEDS: OXYCODONE/APAP 7.5/325 TABLET. PO PRN ×2 (10:50→20:14)
[2016-09-13 11:00] VITALS: BP 99/53
[2016-09-13] MEDS ORDERED: DEXAMETHASONE SOD PHOS 4 MG/ML VIAL IV SCH (12:00)
[2016-09-13] MEDS ORDERED: NON FORMULARY ITEM (Albuterol Sulfate (Ventolin Hfa Inhaler) 2 PUFF) INH SCH (12:00)
[2016-09-13] MEDS: ALBUTEROL SULFATE 2.5 MG/3 ML NEBU. NEB SCH ×4 (12:00→23:29)
[2016-09-13 15:00] VITALS: BP 111/69
--- NOTE | 2016-09-13 15:10 | HP ---
ADMIT DATE: 09/12/2016 HISTORY OF PRESENT ILLNESS: The patient is a pleasant 51-year-old woman who underwent lumbar surgery on the of this month. She had difficulty with back and right greater than left leg pain prior to surgery. She was discharged on 09/09/2016 and called yesterday with reports of severe left leg pain. She reports that her right leg pain resolved, but the left leg pain had slowly worsened since surgery. She was seen in the Emergency Room and admitted for further evaluation and treatment. She denies weakness, but reports feelings that her left leg may give out when she tries to ambulate because of pain. She was taking Percocet at home, which was not effective in treating her pain. She denies any problems with her incision. PAST MEDICAL HISTORY: Headache, shingles, wound infections. PAST SURGICAL HISTORY: Lumbar surgery in 1994, lumbar surgery last week as mentioned above. FAMILY HISTORY: Cancer, diabetes, heart disease, headaches, spine problems, bleeding problems. SOCIAL HISTORY: Disabled, , does not drink alcohol, smokes half pack of cigarettes per day. ALLERGIES: LATEX. MEDICATIONS: See the MRAD . She was taking Flexeril and Percocet at home prior to admission. REVIEW OF SYSTEMS: A 12-point review of systems was performed and is noncontributory except for that mentioned above. PHYSICAL EXAMINATION: GENERAL: Alert, pleasant, in mild distress because of left leg pain. HEAD: Normocephalic and atraumatic. SKIN: Warm and dry. MUSCULOSKELETAL: There is mild tenderness with palpation of the lower lumbar spine, normal range of motion of the lower extremities. EXTREMITIES: No clubbing, cyanosis or edema. NEUROLOGIC: Alert and oriented x 3. Strength is 5/5 in the bilateral lower extremities. Sensory intact in the lower extremities bilaterally. Reflexes are present and symmetric in the lower extremities bilaterally. BACK: Her lumbar incision is healing well. It is dry, flat. There is no drainage. I reviewed a lumbar CT scan and lumbar spine films. There are postoperative changes seen. I have ordered a lumbar MRI scan to be done today. I also placed her on steroids to see if this will help with her pain. SONIA NICHOLSON MD DR: ASUNCION/lynette JOB#: [id number] / [id number] LANETTE
[2016-09-13] MEDS ORDERED: GADOBUTROL 7.5 MMOL/7.5 ML VIAL IV ONE (15:45)
--- NOTE | 2016-09-13 16:24 | RAD ---
PROCEDURE MRI lumbar spine without and with contrast. HISTORY Left-sided pain, low back pain, urinary incontinence, postop on the TECHNIQUE Multiplanar multi sequential pre and post contrast MR imaging was performed of the lumbar spine. Contrast: 7.5 cc Gadavist COMPARISON There is no previous similar exam available. FINDINGS There is motion degradation. There appears to be transitional anatomy of the lumbar spine. For the purpose of this report, there has been posterolateral fusion at what is considered L3-4 at which there is grade 1 anterior spondylolisthesis. There are bilateral pedicle screws at this level attached to vertical rods. Exam does not accurately evaluate integrity of hardware. There is interbody graft at this level. There is rudimentary intervertebral disc space at what will be considered L5-S1. There is moderate to severe narrowing of the L4-5 intervertebral disc space at which there apparently some interbody calcification. Vertebral body stature is adequate. Conus terminates at what is considered T12-L1. There is no nodular enhancement of the conus or cauda equina, no significant enhancement in the intervertebral disc spaces. There is mild L3-4 endplate edema. T12-L1: Spinal canal and neural foramina are adequate. L1-L2: Spinal canal and neural foramina are adequate. L2-3: There is moderate buckling of the ligamentum flavum. Neural foramina are adequate. Spinal canal is overall adequate. L3-4: There has been posterior decompression. There is shallow posterior nonenhancing central protrusion superimposed on mild partial uncovering of the posterior aspect of the disc due to spondylolisthesis. There is a nonspecific fluid collection posteriorly at site of posterior decompression not associated with significant cervical enhancement, collection up to 3.5 cm cc by 1.9 cm transverse by up to 2.4 cm AP, results in mild mass effect upon the posterior thecal sac, discrete communication with thecal sac not fully identified on this exam. There is overall mild attenuation of the thecal sac. Left neural foramina is adequate, suspected mild narrowing of the inferior right neural foramen by shallow bulge/protrusion. L4-5: Spinal canal and neural foramina are adequate. L5-S1: Spinal canal and neural foramina are adequate. IMPRESSION 1. There is transitional anatomy of the lumbar spine. There has been posterolateral fusion and posterior decompression at what is considered L3-4. There is nonspecific fluid collection posteriorly at site of decompression at this level with mild mass effect upon the posterior thecal sac, also a shallow posterior nonenhancing protrusion at this level. There is grade 1 anterior spondylolisthesis at L3-4. 2. There is likely mild narrowing of the inferior right L3-4 neural foramen. Electronically signed by: Chris Galvin MD (Sep 13, 2016 16:22:16)
[2016-09-13 19:10] VITALS: BP 108/69
[2016-09-13] MEDS: DIAZEPAM 5 MG TABLET PO PRN (21:50)
[2016-09-13 23:54] VITALS: BP 96/50
[2016-09-14] MEDS: DEXAMETHASONE SOD PHOS 4 MG/ML VIAL IV SCH ×4 (00:39→17:41)
[2016-09-14] MEDS: IV NORMAL SALINE 1000ML BAG 1,000 ML IV SCH (00:39)
[2016-09-14] MEDS: ALBUTEROL SULFATE 2.5 MG/3 ML NEBU. NEB SCH ×6 (03:32→23:52)
[2016-09-14 03:52] VITALS: BP 105/69
[2016-09-14 07:00] VITALS: BP 119/65
[2016-09-14] MEDS: NICOTINE POLACRILEX 2MG GUM PACKAGE of 12. BC PRN ×2 (07:44→17:41)
[2016-09-14] MEDS: OXYCODONE/APAP 7.5/325 TABLET. PO PRN ×2 (07:44→12:17)
[2016-09-14] MEDS: NICOTINE 21MG PATCH. TD SCH (07:44)
[2016-09-14] MEDS: DOCUSATE SODIUM 100 MG CAPSULE PO SCH ×2 (07:44→22:25)
--- NOTE | 2016-09-14 10:34 | PDOC ---
PROGRESS NOTES Subjective Subjective resting in bed still has left leg pain but improved Objective Objective Vital Signs Date Time Temp Pulse Resp B/P Pulse Ox O2 Delivery O2 Flow Rate FiO2 09/14/16 07:44 16 Room Air 09/14/16 07:29 97 09/14/16 07:00 98.1 96 119/65 98.1 09/13/16 17:02 2.0 Intake and Output 09/14/16 07:00 Output Total 850 ml Balance -850 ml Output Urine Total 850 ml # Voids 3 Physical Exam General: Alert, Oriented X3, Cooperative Neuro: Normal speech Skin: Other (incison healing well, dry, steri strips intact) Assessment Assessment Problems Medical Problems: (1) Post-op pain Status: Acute (2) Postoperative back pain Status: Acute Plan Plan of Care Reviewed lumbar MRI with Dr. Dunbar, post op changes noted, mild stenosis, no significant nerve root compression seen Encouraged increased activity as tolerated PT Comment Review of Relevant I have reviewed the following items dot (where applicable) has been applied. Medications Current Medications Hydromorphone HCl (Dilaudid) 1 mg 1X ONCE IV Last administered on 09/12/16 20 :36; Start 09/12/16 at 20:15; Stop 09/12/16 at 20:16; Status DC Diazepam (Valium) 5 mg 1X ONCE IV Last administered on 09/12/16 20:37; Start 09/12/16 at 20:15; Stop 09/12/16 at 20:16; Status DC Ondansetron HCl (Zofran) 4 mg PRN Q8HRS PRN IV NAUSEA/VOMITING; Start 09/12/16 at 21:00; Stop 09/13/16 at 20:59; Status DC Morphine Sulfate 4 mg 4 mg PRN Q2HR PRN IV PAIN Last administered on 09/13/16 20:42; Start 09/12/16 at 21:00; Stop 09/13/16 at 20:59; Status DC Sodium Chloride (Iv Sodium Chloride 0.9% 1000ml Bag) 1,000 ml @ 100 mls/hr Q10H IV Last administered on 09/14/16 00:39; Start 09/12/16 at 20:55; Stop at 20:54; Status DC Diazepam (Valium) 5 mg PRN TID PRN PO MUSCLE SPASMS Last administered on 21:50; Start 09/12/16 at 23:00 Nicotine (Nicoderm Cq 21mg) 1 patch DAILY TD Last administered on 09/14/16 07: 44; Start 09/13/16 at 09:00 Nicotine Polacrilex (Nicorette Gum) 1 each PRN Q1HR PRN BC SMOKING CESSATION Last administered on 09/14/16 07:44; Start 09/12/16 at 23:00 Docusate Sodium (Colace) 100 mg BID PO Last administered on 09/14/16 07:44; Start 09/13/16 at 10:00 Oxycodone/ Acetaminophen (Percocet 7.5/ 325) 2 tab PRN Q4HRS PRN PO PAIN Last administered on 09/14/16 07:44; Start 09/13/16 at 10:00 Non-Formulary Medication 2 puff Q4HRS INH FOR ASTHMA; Start 09/13/16 at 12:00; Status UNV Oxycodone/ Acetaminophen (Percocet 7.5/ 325) 1 tab PRN Q4HRS PRN PO PAIN; Start 09/13/16 at 10:00 Dexamethasone Sodium Phosphate (Decadron) 4 mg Q6HRS IV ; Start 09/13/16 at 12: 00; Stop 09/13/16 at 12:00; Status DC Albuterol Sulfate (Ventolin Neb Soln) 2.5 mg Q4HRS NEB Last administered on 07:27; Start 09/13/16 at 12:00 Dexamethasone Sodium Phosphate (Decadron) 4 mg Q6HRS IV Last administered on 06:05; Start 09/13/16 at 10:00 Gadobutrol (Gadavist) 7.5 mmol 1X ONCE IV Last administered on 09/13/16 16:00 ; Start 09/13/16 at 15:45; Stop 09/13/16 at 15:46; Status DC Active Scripts Active Cyclobenzaprine Hcl 10 Mg Tablet 10 Mg PO PRN TID PRN 60 Days Oxycodon-Acetaminophen 7.5-325 (Oxycodone Hcl/Acetaminophen) 1 Each Tablet 2 Tab PO PRN Q4HRS PRN 60 Days Colace (Docusate Sodium) 100 Mg Capsule 100 Mg PO BID 60 Days Reported Ventolin Hfa Inhaler (Albuterol Sulfate) 18 Gm Hfa.aer.ad 2 Puff INH Q4HRS Not used w hile in hosp. May resume at home as needed as directed. Vitals/I & O Vital Sign - Last 24 Hours 09/13/16 09/13/16 09/13/16 09/13/16 10:50 11:00 14:52 15:00 Temp 98.5 98.1 98.5 98.1 Pulse 100 87 Resp 18 18 18 20 B/P 99/53 111/69 Pulse Ox 93 96 O2 Delivery Room Air Room Air Room Air Room Air 09/13/16 09/13/16 09/13/16 09/13/16 17:02 18:35 19:05 19:10 Temp 97.8 97.8 Pulse 99 Resp 16 16 20 B/P 108/69 Pulse Ox 95 96 O2 Delivery Nasal Cannula Room Air Room Air Room Air O2 Flow Rate 2.0 09/13/16 09/13/16 09/13/16 09/13/16 19:47 20:00 20:14 20:42 Resp 16 16 Pulse Ox 98 O2 Delivery Room Air Room Air Room Air Room Air 09/13/16 09/13/16 09/13/16 09/14/16 21:30 23:29 23:54 03:52 Temp 98.1 97.8 98.1 97.8 Pulse 103 97 Resp 16 20 20 B/P 96/50 105/69 Pulse Ox 98 97 96 O2 Delivery Room Air Room Air Room Air Room Air 09/14/16 09/14/16 09/14/16 09/14/16 07:00 07:21 07:29 07:44 Temp 98.1 98.1 Pulse 96 Resp 18 16 B/P 119/65 Pulse Ox 98 97 O2 Delivery Room Air Room Air Room Air Room Air Intake and Output 09/13/16 09/13/16 09/14/16 15:00 23:00 07:00 Output Total 600 ml 250 ml Balance -600 ml -250 ml NAVEEN DELCID APRN Sep 14, 2016 10:33
[2016-09-14 11:13] VITALS: BP 110/63
[2016-09-14] MEDS ORDERED: OXYCODONE/APAP 10/325 TABLET. PO PRN (15:00)
[2016-09-14 15:15] VITALS: BP 104/68
[2016-09-14] MEDS: OXYCODONE/APAP 10/325 TABLET. PO PRN ×2 (17:27→22:22)
[2016-09-14] MEDS: DIAZEPAM 5 MG TABLET PO PRN (19:45)
[2016-09-14] MEDS: MORPHINE SULFATE 4 MG/ML DISP.SYRIN. IV PRN (19:47)
[2016-09-14 19:55] VITALS: BP 133/79
[2016-09-14 21:14] LABS: CALCIUM 9.2 mg/dL (8.5-10.1); CREATININE 0.9 mg/dL (0.6-1.0); GFR 65.8; POTASSIUM 3.8 mmol/L (3.5-5.1)
[2016-09-14] MEDS: POTASSIUM CL 20MEQ D5-0.45NACL 1,000 ML IV SCH (22:25)
[2016-09-14 22:50] LABS: BILIRUBIN,URINE NEGATIVE (NEG); GLUCOSE,URINE NEGATIVE (NEG); NITRITE,URINE NEGATIVE (NEG); PROTEIN,URINE NEGATIVE (NEG-TRACE)
[2016-09-14 22:53] LABS: BACTERIA,URINE MANY /HPF (0-FEW); RBC,URINE 0 /HPF (0-2); SQUAMOUS EPITHELIAL CELL,UR MOD /LPF; WBC,URINE RARE /HPF (0-4)
[2016-09-14 23:37] VITALS: BP 114/70
[2016-09-15] MEDS: DEXAMETHASONE SOD PHOS 4 MG/ML VIAL IV SCH ×4 (00:53→18:30)
[2016-09-15 03:10] VITALS: BP 112/67
[2016-09-15] MEDS: ALBUTEROL SULFATE 2.5 MG/3 ML NEBU. NEB SCH ×5 (03:52→21:00)
[2016-09-15] MEDS: MORPHINE SULFATE 4 MG/ML DISP.SYRIN. IV PRN ×2 (04:43→15:01)
[2016-09-15] MEDS: OXYCODONE/APAP 10/325 TABLET. PO PRN ×2 (05:53→18:30)
[2016-09-15 07:00] VITALS: BP 111/63
[2016-09-15] MEDS ORDERED: CONTRAST GIVEN MC PRN (08:45)
[2016-09-15] MEDS ORDERED: IOHEXOL 180 MG/ML 10 ML VIAL. IJ ONE (08:45)
--- NOTE | 2016-09-15 09:46 | PDOC ---
PROGRESS NOTES Subjective Subjective c/o severe bilateral leg pain Objective Objective Vital Signs Date Time Temp Pulse Resp B/P Pulse Ox O2 Delivery O2 Flow Rate FiO2 09/15/16 07:00 97.6 92 16 111/63 97 Room Air 97.6 09/13/16 17:02 2.0 Intake and Output 09/15/16 07:00 Intake Total 2819 ml Output Total 1450 ml Balance 1369 ml Intake Oral 840 ml IV Total 479 ml Other 1500 ml Output Urine Total 1450 ml # Voids 2 Physical Exam General: Alert, Oriented X3, Cooperative Neuro: Normal speech, Other (strength normal) Assessment Assessment Problems Medical Problems: (1) Post-op pain Status: Acute (2) Postoperative back pain Status: Acute Plan Plan of Care lumbar myelogram today Comment Review of Relevant I have reviewed the following items dot (where applicable) has been applied. Labs Laboratory Tests Test 09/14/16 20:45 09/14/16 21:00 Sodium Level 141mmol/L (136-145) Potassium Level 3.8mmol/L (3.5-5.1) Chloride Level 104mmol/L (98-107) Carbon Dioxide Level 25mmol/L (21-32) Anion Gap 12 (6-14) Blood Urea Nitrogen 18mg/dL (7-20) Creatinine 0.9mg/dL (0.6-1.0) Estimated GFR (Cockcroft-Gault) 65.8 Glucose Level 130mg/dL (70-99) Calcium Level 9.2mg/dL (8.5-10.1) Urine Collection Type Unknown Urine Color Yellow Urine Clarity Cloudy Urine pH 7.0 Urine Specific Fleming 1.015 Urine Protein Negativemg/dL (NEG-TRACE) Urine Glucose (UA) Negativemg/dL (NEG) Urine Ketones (Stick) Negativemg/dL (NEG) Urine Blood Negative (NEG) Urine Nitrite Negative (NEG) Urine Bilirubin Negative (NEG) Urine Urobilinogen Dipstick 1.0mg/dL (0.2 mg/dL) Urine Leukocyte Esterase Negative (NEG) Urine RBC 0/HPF (0-2) Urine WBC Rare/HPF (0-4) Urine Squamous Epithelial Cells Mod/LPF Urine Bacteria Many/HPF (0-FEW) Laboratory Tests Test 09/14/16 20:45 09/14/16 21:00 Sodium Level 141mmol/L (136-145) Potassium Level 3.8mmol/L (3.5-5.1) Chloride Level 104mmol/L (98-107) Carbon Dioxide Level 25mmol/L (21-32) Anion Gap 12 (6-14) Blood Urea Nitrogen 18mg/dL (7-20) Creatinine 0.9mg/dL (0.6-1.0) Estimated GFR (Cockcroft-Gault) 65.8 Glucose Level 130mg/dL (70-99) Calcium Level 9.2mg/dL (8.5-10.1) Urine Collection Type Unknown Urine Color Yellow Urine Clarity Cloudy Urine pH 7.0 Urine Specific Fleming 1.015 Urine Protein Negativemg/dL (NEG-TRACE) Urine Glucose (UA) Negativemg/dL (NEG) Urine Ketones (Stick) Negativemg/dL (NEG) Urine Blood Negative (NEG) Urine Nitrite Negative (NEG) Urine Bilirubin Negative (NEG) Urine Urobilinogen Dipstick 1.0mg/dL (0.2 mg/dL) Urine Leukocyte Esterase Negative (NEG) Urine RBC 0/HPF (0-2) Urine WBC Rare/HPF (0-4) Urine Squamous Epithelial Cells Mod/LPF Urine Bacteria Many/HPF (0-FEW) Medications Current Medications Hydromorphone HCl (Dilaudid) 1 mg 1X ONCE IV Last administered on 09/12/16 20 :36; Start 09/12/16 at 20:15; Stop 09/12/16 at 20:16; Status DC Diazepam (Valium) 5 mg 1X ONCE IV Last administered on 09/12/16 20:37; Start 09/12/16 at 20:15; Stop 09/12/16 at 20:16; Status DC Ondansetron HCl (Zofran) 4 mg PRN Q8HRS PRN IV NAUSEA/VOMITING; Start 09/12/16 at 21:00; Stop 09/13/16 at 20:59; Status DC Morphine Sulfate 4 mg 4 mg PRN Q2HR PRN IV PAIN Last administered on 09/13/16 20:42; Start 09/12/16 at 21:00; Stop 09/13/16 at 20:59; Status DC Sodium Chloride (Iv Sodium Chloride 0.9% 1000ml Bag) 1,000 ml @ 100 mls/hr Q10H IV Last administered on 09/14/16 00:39; Start 09/12/16 at 20:55; Stop at 20:54; Status DC Diazepam (Valium) 5 mg PRN TID PRN PO MUSCLE SPASMS Last administered on 19:45; Start 09/12/16 at 23:00 Nicotine (Nicoderm Cq 21mg) 1 patch DAILY TD Last administered on 09/14/16 07: 44; Start 09/13/16 at 09:00 Nicotine Polacrilex (Nicorette Gum) 1 each PRN Q1HR PRN BC SMOKING CESSATION Last administered on 09/14/16 17:41; Start 09/12/16 at 23:00 Docusate Sodium (Colace) 100 mg BID PO Last administered on 09/14/16 22:25; Start 09/13/16 at 10:00 Oxycodone/ Acetaminophen (Percocet 7.5/ 325) 2 tab PRN Q4HRS PRN PO PAIN Last administered on 09/14/16 12:17; Start 09/13/16 at 10:00; Stop 09/14/16 at 15:00 ; Status DC Non-Formulary Medication 2 puff Q4HRS INH FOR ASTHMA; Start 09/13/16 at 12:00; Status UNV Oxycodone/ Acetaminophen (Percocet 7.5/ 325) 1 tab PRN Q4HRS PRN PO PAIN; Start 09/13/16 at 10:00; Stop 09/14/16 at 15:00; Status DC Dexamethasone Sodium Phosphate (Decadron) 4 mg Q6HRS IV ; Start 09/13/16 at 12: 00; Stop 09/13/16 at 12:00; Status DC Albuterol Sulfate (Ventolin Neb Soln) 2.5 mg Q4HRS NEB Last administered on 09/15 06:47; Start 09/13/16 at 12:00; Stop 09/15/16 at 08:10; Status DC Dexamethasone Sodium Phosphate (Decadron) 4 mg Q6HRS IV Last administered on 05:53; Start 09/13/16 at 10:00 Gadobutrol (Gadavist) 7.5 mmol 1X ONCE IV Last administered on 09/13/16 16:00 ; Start 09/13/16 at 15:45; Stop 09/13/16 at 15:46; Status DC Morphine Sulfate 4 mg PRN Q2HR PRN IV PAIN Last administered on 09/15/16 04:43 ; Start 09/14/16 at 15:00 Oxycodone/ Acetaminophen (Percocet 10/325) 1 tab PRN Q4HRS PRN PO PAIN; Start 09/14/16 at 15:00 Oxycodone/ Acetaminophen 2 tab 2 tab PRN Q4HRS PRN PO PAIN Last administered on 09/15/16 05:53; Start 09/14/16 at 15:15 Potassium Chloride/Dextrose/ Sod Cl (KCl 20 Meq In D5W-1/2 NS) 1,000 ml @ 75 mls/hr [id number] IV Last administered on 09/14/16 22:25; Start 09/14/16 at 20:15 Albuterol Sulfate (Ventolin Neb Soln) 2.5 mg QID NEB ; Start 09/15/16 at 13:00 Iohexol (Omnipaque 180 Mg/ml) 20 ml 1X ONCE IJ ; Start 09/15/16 at 08:45; Stop 09/15/16 at 08:46; Status DC Info (Do NOT chart on this entry -- for MONITORING) 1 each PRN DAILY PRN MC SEE COMMENTS; Start 09/15/16 at 08:45; Stop 09/17/16 at 08:44 Active Scripts Active Cyclobenzaprine Hcl 10 Mg Tablet 10 Mg PO PRN TID PRN 60 Days Oxycodon-Acetaminophen 7.5-325 (Oxycodone Hcl/Acetaminophen) 1 Each Tablet 2 Tab PO PRN Q4HRS PRN 60 Days Colace (Docusate Sodium) 100 Mg Capsule 100 Mg PO BID 60 Days Reported Ventolin Hfa Inhaler (Albuterol Sulfate) 18 Gm Hfa.aer.ad 2 Puff INH Q4HRS Not used w darrius in hosp. May resume at home as needed as directed. Vitals/I & O Vital Sign - Last 24 Hours 09/14/16 09/14/16 09/14/16 09/14/16 11:13 11:32 12:17 13:30 Temp 97.9 97.9 Pulse 90 Resp 18 18 16 B/P 110/63 Pulse Ox 97 97 O2 Delivery Room Air Room Air Room Air Room Air 09/14/16 09/14/16 09/14/16 09/14/16 15:15 15:32 17:27 18:52 Temp 97.7 97.7 Pulse 91 Resp 18 18 B/P 104/68 Pulse Ox 96 O2 Delivery Room Air Room Air Room Air Room Air 09/14/16 09/14/16 09/14/16 09/14/16 19:47 19:55 20:30 23:37 Temp 97.8 98.4 97.8 98.4 Pulse 108 95 Resp 20 18 18 B/P 133/79 114/70 Pulse Ox 100 95 O2 Delivery Room Air Room Air Room Air Room Air 09/14/16 09/15/16 09/15/16 09/15/16 23:53 03:10 04:43 05:49 Temp 97.4 97.4 Pulse 89 Resp 18 18 18 B/P 112/67 Pulse Ox 98 97 O2 Delivery Room Air Room Air Room Air 09/15/16 09/15/16 09/15/16 05:53 06:49 07:00 Temp 97.6 97.6 Pulse 92 Resp 18 16 B/P 111/63 Pulse Ox 97 97 O2 Delivery Room Air Room Air Room Air Intake and Output 09/14/16 09/14/16 09/15/16 15:00 23:00 07:00 Intake Total 600 ml 240 ml 1979 ml Output Total 750 ml 700 ml Balance -150 ml 240 ml 1279 ml SONIA NICHOLSON MD Sep 15, 2016 09:46
[2016-09-15] MEDS: NICOTINE 21MG PATCH. TD SCH (10:09)
[2016-09-15] MEDS: DOCUSATE SODIUM 100 MG CAPSULE PO SCH ×2 (10:09→21:50)
[2016-09-15] MEDS: POTASSIUM CL 20MEQ D5-0.45NACL 1,000 ML IV SCH ×2 (10:10→21:43)
[2016-09-15 11:00] VITALS: BP 100/57
[2016-09-15 15:00] VITALS: BP 104/55
--- NOTE | 2016-09-15 15:38 | RAD ---
Indication back pain. History of spinal fixation and fusion one week ago. Lumbar myelogram and post myelogram CT was explained to the patient. The risks of infection and bleeding were outlined. The possibility of damage to nerve roots was discussed. The very small possibility of seizure was discussed. The possibility of postprocedure headache necessitating placement of a blood patch was also outlined the patient. The patient understood the risks associated with the procedure and wished to proceed. A preliminary film demonstrates spinal fixation at L3-4. Interbody fusion device is noted. Disc space narrowing at L4-5 is noted. Mild spondylolisthesis of L3 relative to L4 is noted. The laminectomy defect at L3-4 was chosen to enter the thecal sac. The skin was prepped and draped in the routine fashion. Local anesthesia was accomplished with 1% lidocaine. A 25-gauge spinal needle was introduced using a midline approach. Clear CSF was encountered. Approximately 11 cc of Omnipaque 180 was introduced into the thecal sac.. Multiple films were subsequently obtained. (18 spot fluoroscopic images were obtained). The fluoroscopy time associated with the procedure was 3.[address] images were obtained. Axial images were obtained through the lower thoracic and lumbar spine. Disc cuts were obtained at all lumbar levels. Lumbar myelogram: Findings. There is slight narrowing of the thecal sac at L3-4 extending throughout the L4 vertebral body. There is no amputation of the contrast column. The conus appears unremarkable. Lateral flexion and extension views were obtained. Spondylolisthesis at L3-4 is relatively unchanged in these flexion and extension views. Postmyelogram CT: Findings The lung bases appear clear. A significant finding is not seen in the soft tissues of the visualized abdomen and pelvis. The conus appears normal. T12-L1 appears unremarkable. L1-2 appears normal. At L2-3 there is some slight encroachment of the thecal sac probably representing disc bulge. At this level the canal is narrowed to approximately 8 mm. There is no neural foraminal encroachment. At L3-4 there is soft tissue effacement of the thecal sac but only minimal canal narrowing. The canal at L3-4 is slightly narrowed to approximately 10 mm to 11 mm (anterior spondylolisthesis of L3 relative to L4 is noted). There is some moderate encroachment of the left neural foramen at L3-4. At L4-5 there is no canal narrowing or foraminal encroachment. L5-S1 also appears unremarkable. IMPRESSION: Lumbar myelogram and post myelogram CT demonstrating spinal fixation cage and interbody fusion at L3-4. Known grade 1 anterolisthesis of L3 relative to L4 noted. No abnormal movement seen with flexion and extension. Mild canal narrowing, to approximately 8 mm, at L2-3 Minimal canal narrowing, to approximately 10 to 11 mm, at L3-4. There is some left neural foraminal encroachment at this level PQRS Compliance Statement: One or more of the following individualized dose reduction techniques were utilized for this examination: 1. Automated exposure control 2. Adjustment of the mA and/or kV according to patient size 3. Use of iterative reconstruction technique
[2016-09-15 19:00] VITALS: BP 112/69
[2016-09-15] MEDS ORDERED: BISACODYL 10 MG SUPP.RECT PR PRN (20:15)
[2016-09-15] MEDS: DIAZEPAM 5 MG TABLET PO PRN (21:53)
[2016-09-15 23:00] VITALS: BP 110/70
[2016-09-16] VITALS (10 sets, daily range): BP systolic 87–107; BP diastolic 49–75
[2016-09-16] MEDS: MORPHINE SULFATE 4 MG/ML DISP.SYRIN. IV PRN ×2 (03:40→13:57)
[2016-09-16] MEDS: DEXAMETHASONE SOD PHOS 4 MG/ML VIAL IV SCH ×3 (04:00→13:56)
[2016-09-16] MEDS: OXYCODONE/APAP 10/325 TABLET. PO PRN ×2 (04:01→13:46)
[2016-09-16] MEDS ORDERED: BACITRACIN 50,000 UNIT in IV NORMAL SALINE 1000ML BAG 1,000 ML IRR ONE (06:00)
[2016-09-16] MEDS ORDERED: IV RINGERS,LACTATED 1000ML 1,000 ML IV SCH (07:00)
[2016-09-16] MEDS ORDERED: PROCHLORPERAZINE 10 MG/2 ML VIAL. IV PRN (07:00)
[2016-09-16] MEDS ORDERED: ONDANSETRON PF 4 MG/2 ML VIAL. IV PRN (07:00)
[2016-09-16] MEDS ORDERED: HYDROMORPHONE 2 MG/ML VIAL. IV PRN (07:00)
[2016-09-16] MEDS ORDERED: LIDOCAINE 1% 1 ML SYRINGE. ID PRN (07:00)
[2016-09-16] MEDS ORDERED: MORPHINE SULFATE 2 MG/ML DISP.SYRIN. IV PRN (07:00)
[2016-09-16] MEDS: ALBUTEROL SULFATE 2.5 MG/3 ML NEBU. NEB SCH ×4 (07:06→20:59)
[2016-09-16] MEDS: DIAZEPAM 5 MG TABLET PO PRN (07:14)
[2016-09-16] MEDS ORDERED: GELATIN SPONGE SIZE 100. ONE (07:26)
[2016-09-16] MEDS ORDERED: BUPIVAC MPF-EPI 0.5%-1:200000 30 ML VIAL. ONE (07:26)
[2016-09-16] MEDS ORDERED: THROMBIN 20,000 UNIT SPRAY.SYRN KIT TP ONE (07:27)
[2016-09-16] MEDS ORDERED: KETOROLAC 60 MG/2 ML SYRINGE FOR OR. ONE (07:27)
[2016-09-16] MEDS ORDERED: LIDOCAINE 2% 100 MG/5 ML DISP.SYRIN. ONE ×2 (07:37→07:59)
[2016-09-16] MEDS ORDERED: PROPOFOL 0 ML IV ONE (07:37)
[2016-09-16] MEDS ORDERED: DEXAMETHASONE SOD PHOS 20 MG/5 ML VIAL. ONE ×2 (07:39→07:59)
[2016-09-16] MEDS ORDERED: ROCURONIUM 50 MG/5 ML VIAL. ONE (07:39)
[2016-09-16] MEDS ORDERED: FENTANYL PF 100 MCG/2 ML VIAL. ONE ×2 (07:39→12:00)
[2016-09-16] MEDS ORDERED: ONDANSETRON PF 4 MG/2 ML VIAL. ONE ×2 (07:39→07:59)
[2016-09-16] MEDS ORDERED: REMIFENTANIL 2 MG VIAL. IV ONE ×3 (07:40→08:00)
[2016-09-16] MEDS ORDERED: PHENYLEPHRINE 10 MG/ML VIAL. ONE (07:59)
[2016-09-16] MEDS ORDERED: MIDAZOLAM HCL 2 MG/2 ML VIAL. ONE (07:59)
[2016-09-16] MEDS ORDERED: PROPOFOL 20 ML IV ONE (07:59)
[2016-09-16] MEDS ORDERED: PROPOFOL 50 ML IV ONE ×2 (07:59→10:22)
[2016-09-16] MEDS ORDERED: MINERAL OIL/PETROLATUM,WHITE OPHTH OINT 3.5GM TUBE. ONE (08:12)
[2016-09-16] MEDS ORDERED: CEFAZOLIN SODIUM 3 GM in IV NORMAL SALINE 100ML 100 ML IV SCH (08:30)
[2016-09-16] MEDS ORDERED: CEFAZOLIN 2GM PREMIX 50 ML IV ONE ×2 (08:49→10:30)
[2016-09-16] MEDS ORDERED: DESFLURANE 61 TO 120 MINUTES IH ONE (09:29)
[2016-09-16] MEDS ORDERED: FENTANYL PF 100 MCG/2 ML VIAL. IV PRN (12:00)
[2016-09-16] MEDS: FENTANYL PF 100 MCG/2 ML VIAL. IV PRN ×5 (12:01→21:57)
[2016-09-16] MEDS: DOCUSATE SODIUM 100 MG CAPSULE PO SCH ×2 (13:45→21:58)
[2016-09-16] MEDS: NICOTINE 21MG PATCH. TD SCH (13:46)
[2016-09-16] MEDS: POTASSIUM CL 20MEQ D5-0.45NACL 1,000 ML IV SCH ×2 (13:56→21:50)
[2016-09-16] MEDS ORDERED: MORPHINE SULFATE 30 ML IV PRN (14:45)
[2016-09-16] MEDS ORDERED: DEXAMETHASONE SOD PHOS 4 MG/ML VIAL IV SCH (20:00)
[2016-09-16 20:29] LABS: HEMATOCRIT 30.1 % (36.0-47.0); HEMOGLOBIN 9.9 g/dL (12.0-15.5)
[2016-09-17] MEDS: FENTANYL PF 100 MCG/2 ML VIAL. IV PRN ×4 (02:02→23:32)
[2016-09-17 03:00] VITALS: BP 101/55
[2016-09-17] MEDS: OXYCODONE/APAP 10/325 TABLET. PO PRN ×4 (05:26→20:44)
[2016-09-17 07:00] VITALS: BP 94/63
[2016-09-17] MEDS: POTASSIUM CL 20MEQ D5-0.45NACL 1,000 ML IV SCH ×2 (08:24→17:25)
[2016-09-17] MEDS: DOCUSATE SODIUM 100 MG CAPSULE PO SCH ×2 (08:25→20:39)
[2016-09-17] MEDS: NICOTINE 21MG PATCH. TD SCH (08:25)
[2016-09-17] MEDS: ALBUTEROL SULFATE 2.5 MG/3 ML NEBU. NEB SCH ×4 (08:32→19:47)
--- NOTE | 2016-09-17 09:54 | PDOC ---
PROGRESS NOTES Subjective Subjective POD #1 reports improvement in leg pain, still mild pain in right anterior thigh but better c/o back/ incisional pain reports that she has ambulated to without difficulty Objective Objective Vital Signs Date Time Temp Pulse Resp B/P Pulse Ox O2 Delivery O2 Flow Rate FiO2 09/17/16 09:24 99 Room Air 09/17/16 07:00 97.3 81 16 94/63 97.3 09/16/16 12:56 10.0 Intake and Output 09/17/16 07:00 Intake Total 3456 ml Output Total 50 ml Balance 3406 ml Intake Oral 420 ml IV Total 3036 ml Estimated Blood Loss 50 ml # Voids 4 # Bowel Movements 1 Physical Exam General: Alert, Oriented X3, Cooperative Neuro: Normal speech, Other (strength 5/5 in BLE) Skin: Other (Dressing C,D,I, flat) Assessment Assessment Problems Medical Problems: (1) Post-op pain Status: Acute (2) Postoperative back pain Status: Acute Plan Plan of Care encouraged increased activity as tolerated continue PT scd/ esperanza Tao likely dc tomorrow Comment Review of Relevant I have reviewed the following items dot (where applicable) has been applied. Labs Laboratory Tests Test 09/16/16 20:10 Hemoglobin 9.9g/dL (12.0-15.5) Hematocrit 30.1% (36.0-47.0) Mean Corpuscular Hemoglobin Concent 33g/dL (31-37) Laboratory Tests Test 09/16/16 20:10 Hemoglobin 9.9g/dL (12.0-15.5) Hematocrit 30.1% (36.0-47.0) Mean Corpuscular Hemoglobin Concent 33g/dL (31-37) Microbiology 09/14/16 Urine Culture - Final, Complete 09/14/16 Urine Culture Result 1 (ROBIN) - Final, Complete 09/14/16 Antimicrobic Susceptibility - Final, Complete Medications Current Medications Hydromorphone HCl (Dilaudid) 1 mg 1X ONCE IV Last administered on 09/12/16 20 :36; Start 09/12/16 at 20:15; Stop 09/12/16 at 20:16; Status DC Diazepam (Valium) 5 mg 1X ONCE IV Last administered on 09/12/16 20:37; Start 09/12/16 at 20:15; Stop 09/12/16 at 20:16; Status DC Ondansetron HCl (Zofran) 4 mg PRN Q8HRS PRN IV NAUSEA/VOMITING; Start 09/12/16 at 21:00; Stop 09/13/16 at 20:59; Status DC Morphine Sulfate 4 mg 4 mg PRN Q2HR PRN IV PAIN Last administered on 09/13/16 20:42; Start 09/12/16 at 21:00; Stop 09/13/16 at 20:59; Status DC Sodium Chloride (Iv Sodium Chloride 0.9% 1000ml Bag) 1,000 ml @ 100 mls/hr Q10H IV Last administered on 09/14/16 00:39; Start 09/12/16 at 20:55; Stop at 20:54; Status DC Diazepam (Valium) 5 mg PRN TID PRN PO MUSCLE SPASMS Last administered on 07:14; Start 09/12/16 at 23:00 Nicotine (Nicoderm Cq 21mg) 1 patch DAILY TD Last administered on 09/17/16 08: 25; Start 09/13/16 at 09:00 Nicotine Polacrilex (Nicorette Gum) 1 each PRN Q1HR PRN BC SMOKING CESSATION Last administered on 09/14/16 17:41; Start 09/12/16 at 23:00 Docusate Sodium (Colace) 100 mg BID PO Last administered on 09/17/16 08:25; Start 09/13/16 at 10:00 Oxycodone/ Acetaminophen (Percocet 7.5/ 325) 2 tab PRN Q4HRS PRN PO PAIN Last administered on 09/14/16 12:17; Start 09/13/16 at 10:00; Stop 09/14/16 at 15:00 ; Status DC Non-Formulary Medication 2 puff Q4HRS INH FOR ASTHMA; Start 09/13/16 at 12:00; Status UNV Oxycodone/ Acetaminophen (Percocet 7.5/ 325) 1 tab PRN Q4HRS PRN PO PAIN; Start 09/13/16 at 10:00; Stop 09/14/16 at 15:00; Status DC Dexamethasone Sodium Phosphate (Decadron) 4 mg Q6HRS IV ; Start 09/13/16 at 12: 00; Stop 09/13/16 at 12:00; Status DC Albuterol Sulfate (Ventolin Neb Soln) 2.5 mg Q4HRS NEB Last administered on 09/15 06:47; Start 09/13/16 at 12:00; Stop 09/15/16 at 08:10; Status DC Dexamethasone Sodium Phosphate (Decadron) 4 mg Q6HRS IV Last administered on 13:56; Start 09/13/16 at 10:00; Stop 09/16/16 at 17:51; Status DC Gadobutrol (Gadavist) 7.5 mmol 1X ONCE IV Last administered on 09/13/16 16:00 ; Start 09/13/16 at 15:45; Stop 09/13/16 at 15:46; Status DC Morphine Sulfate 4 mg PRN Q2HR PRN IV PAIN Last administered on 09/16/16 13:57 ; Start 09/14/16 at 15:00; Stop 09/16/16 at 19:16; Status DC Oxycodone/ Acetaminophen (Percocet 10/325) 1 tab PRN Q4HRS PRN PO PAIN Last administered on 09/16/16 18:03; Start 09/14/16 at 15:00 Oxycodone/ Acetaminophen 2 tab 2 tab PRN Q4HRS PRN PO PAIN Last administered on 09/17/16 09:24; Start 09/14/16 at 15:15 Potassium Chloride/Dextrose/ Sod Cl (KCl 20 Meq In D5W-1/2 NS) 1,000 ml @ 100 mls/hr Q10H IV Last administered on 09/17/16 08:24; Start 09/14/16 at 20:15 Albuterol Sulfate (Ventolin Neb Soln) 2.5 mg QID NEB Last administered on 08:32; Start 09/15/16 at 13:00 Iohexol (Omnipaque 180 Mg/ml) 20 ml 1X ONCE IJ Last administered on 09/15/16 14:24; Start 09/15/16 at 08:45; Stop 09/15/16 at 08:46; Status DC Info 1 each 1 each PRN DAILY PRN MC SEE COMMENTS; Start 09/15/16 at 08:45; Stop 09/17/16 at 08:44; Status DC Cefazolin Sodium/ Sodium Chloride (Ancef/Iv Sodium Chloride 0.9% 100ml) 100 ml @ 200 mls/hr 1X PREOP IV ; Start 09/16/16 at 08:30 Ondansetron HCl (Zofran) 4 mg PRN Q6HRS PRN IV Nausea; Start 09/16/16 at 07:00; Stop 09/17/16 at 06:59; Status DC Morphine Sulfate 1 mg 1 mg PRN Q10MIN PRN IV SEVERE PAIN; Start 09/16/16 at 07: 00; Stop 09/16/16 at 20:04; Status DC Lactated Ringer's (Iv Lactated Ringers) 1,000 ml @ 0 mls/hr Q0M IV Last administered on 09/16/16 08:13; Start 09/16/16 at 07:00; Stop 09/16/16 at 18:59; Status DC Lidocaine HCl 2 ml 1X PRN PRN ID IV START; Start 09/16/16 at 07:00; Stop at 06:59; Status DC Hydromorphone HCl (Dilaudid) 0.5 mg PRN Q10MIN PRN IV SEVERE PAIN, Second choice; Start 09/16/16 at 07:00; Stop 09/16/16 at 20:04; Status DC Prochlorperazine Edisylate 5 mg 5 mg PACU PRN PRN IV NAUSEA; Start 09/16/16 at 07:00; Stop 09/17/16 at 06:59; Status DC Bacitracin/Sodium Chloride (Iv Sodium Chloride 0.9% 1000ml Bag) 1,000 ml @ 1, 000 mls/hr 1X PERIOP ONCE IRR ; Start 09/16/16 at 06:00; Stop 09/16/16 at 06:59; Status DC Bisacodyl (Dulcolax Supp) 10 mg PRN DAILY PRN MO CONSTIPATION Last administered on 09/15/16t 21:11; Start 09/15/16 at 20:15 Polyethylene Glycol (miraLAX PACKET) 17 gm PRN BID PRN PO CONSTIPATION; Start 09/15/16 at 20:15 Bupivacaine HCl/ Epinephrine Bitart (Sensorcain-Mpf Epi 0.5%-[id number]) 30 ml STK -MED ONCE .ROUTE Last administered on 09/16/16 09:47; Start 09/16/16 at 07:26; Stop 09/16/16 at 07:27; Status DC Gelatin (Gelfoam Size 100) 1 each STK-MED ONCE .ROUTE Last administered on 09/16 09:47; Start 09/16/16 at 07:26; Stop 09/16/16 at 07:27; Status DC Ketorolac Tromethamine (Toradol For Or Only) 60 mg STK-MED ONCE .ROUTE Last administered on 09/16/16 09:47; Start 09/16/16 at 07:27; Stop 09/16/16 at 07:28; Status DC Thrombin 64267 unit 20,000 unit STK-MED ONCE TP Last administered on 09/16/16 09:47; Start 09/16/16 at 07:27; Stop 09/16/16 at 07:28; Status DC Propofol (Diprivan) 0 ml @ As Directed STK-MED ONCE IV ; Start 09/16/16 at 07:37 ; Stop 09/16/16 at 07:38; Status DC Lidocaine HCl 100 mg STK-MED ONCE .ROUTE ; Start 09/16/16 at 07:37; Stop 09/16/16 at 07:38; Status DC Dexamethasone Sodium Phosphate (Decadron) 20 mg STK-MED ONCE .ROUTE ; Start 09/16 at 07:39; Stop 09/16/16 at 07:40; Status DC Ondansetron HCl (Zofran) 4 mg STK-MED ONCE .ROUTE ; Start 09/16/16 at 07:39; Stop 09/16/16 at 07:40; Status DC Rocuronium [place] (Zemuron) 50 mg STK-MED ONCE .ROUTE ; Start 09/16/16 at 07:39 ; Stop 09/16/16 at 07:40; Status DC Fentanyl Citrate (Fentanyl 2ml Vial) 100 mcg STK-MED ONCE .ROUTE ; Start at 07:39; Stop 09/16/16 at 07:40; Status DC Remifentanil HCl (Ultiva) 2 mg STK-MED ONCE IV ; Start 09/16/16 at 07:40; Stop at 07:41; Status DC Remifentanil HCl (Ultiva) 2 mg STK-MED ONCE IV ; Start 09/16/16 at 07:40; Stop at 07:41; Status DC Dexamethasone Sodium Phosphate (Decadron) 20 mg STK-MED ONCE .ROUTE ; Start 09/16 at 07:59; Stop 09/16/16 at 08:00; Status DC Ondansetron HCl 4 mg 4 mg STK-MED ONCE .ROUTE ; Start 09/16/16 at 07:59; Stop 09/16/16 at 08:00; Status DC Propofol 50 ml @ As Directed STK-MED ONCE IV ; Start 09/16/16 at 07:59; Stop 09/16 at 08:00; Status DC Propofol (Diprivan) 20 ml @ As Directed STK-MED ONCE IV ; Start 09/16/16 at 07:59 ; Stop 09/16/16 at 08:00; Status DC Lidocaine HCl 100 mg STK-MED ONCE .ROUTE ; Start 09/16/16 at 07:59; Stop 09/16/16 at 08:00; Status DC Phenylephrine HCl (Boni-Synephrine Inj) 10 mg STK-MED ONCE .ROUTE ; Start at 07:59; Stop 09/16/16 at 08:00; Status DC Midazolam HCl (Versed) 2 mg STK-MED ONCE .ROUTE ; Start 09/16/16 at 07:59; Stop 09/16/16 at 08:00; Status DC Remifentanil HCl (Ultiva) 2 mg STK-MED ONCE IV ; Start 09/16/16 at 08:00; Stop at 08:01; Status DC Multi-Ingred Cream/Lotion/Oil/ Oint 7 yehuda 7 yehuda STK-MED ONCE .ROUTE ; Start 09/16 at 08:12; Stop 09/16/16 at 08:13; Status DC Cefazolin Sodium/ Dextrose (Ancef 2gm Premix) 50 ml @ As Directed STK-MED ONCE IV ; Start 09/16/16 at 08:49; Stop 09/16/16 at 08:50; Status DC Desflurane 60 ml 60 ml STK-MED ONCE IH ; Start 09/16/16 at 09:29; Stop 09/16/16 at 09:30; Status DC Cefazolin Sodium/ Dextrose 50 ml @ 100 mls/hr 1X ONCE IV Last administered on 09/16/16 09:38; Start 09/16/16 at 10:30; Stop 09/16/16 at 10:59; Status DC Propofol (Diprivan) 50 ml @ As Directed STK-MED ONCE IV ; Start 09/16/16 at 10:22 ; Stop 09/16/16 at 10:23; Status DC Fentanyl Citrate (Fentanyl 2ml Vial) 25 mcg PRN Q5MIN PRN IV Acute Pain; Start 09/16/16 at 12:00; Stop 09/16/16 at 20:04; Status DC Fentanyl Citrate (Fentanyl 2ml Vial) 50 mcg PRN Q5MIN PRN IV Acute Pain Last administered on 09/16/16 12:56; Start 09/16/16 at 12:00; Stop 09/16/16 at 20:04; Status DC Fentanyl Citrate 100 mcg 100 mcg STK-MED ONCE .ROUTE ; Start 09/16/16 at 12:00; Stop 09/16/16 at 12:01; Status DC Morphine Sulfate (Morphine 30 Mg/ 30 ml [employer]) 30 ml @ 0 mls/hr CONT PRN PRN IV PROTOCOL; Start 09/16/16 at 14:45; Stop 09/16/16 at 20:04; Status DC Dexamethasone Sodium Phosphate (Decadron) 4 mg Q6H IV ; Start 09/16/16 at 20:00; Stop 09/16/16 at 20:00; Status DC Fentanyl Citrate (Fentanyl 2ml Vial) 50 mcg PRN Q1HR PRN IV PAIN Last administered on 09/17/16 04:41; Start 09/16/16 at 20:00 Active Scripts Active Cyclobenzaprine Hcl 10 Mg Tablet 10 Mg PO PRN TID PRN 60 Days Oxycodon-Acetaminophen 7.5-325 (Oxycodone Hcl/Acetaminophen) 1 Each Tablet 2 Tab PO PRN Q4HRS PRN 60 Days Colace (Docusate Sodium) 100 Mg Capsule 100 Mg PO BID 60 Days Reported Ventolin Hfa Inhaler (Albuterol Sulfate) 18 Gm Hfa.aer.ad 2 Puff INH Q4HRS Not used w hile in hosp. May resume at home as needed as directed. Vitals/I & O Vital Sign - Last 24 Hours 09/16/16 09/16/16 09/16/16 09/16/16 11:47 11:47 12:01 12:02 Temp 97.6 97.6 Pulse 82 78 Resp 18 18 18 B/P 128/75 115/74 Pulse Ox 100 100 100 O2 Delivery Mask Simple Mask Simple Mask Simple Mask O2 Flow Rate 10 10 10.0 10 09/16/16 09/16/16 09/16/16 09/16/16 12:17 12:25 12:32 12:37 Pulse 74 72 Resp 18 20 16 B/P 126/44 104/70 Pulse Ox 100 100 99 O2 Delivery Simple Mask Room Air Room Air Room Air O2 Flow Rate 10 09/16/16 09/16/16 09/16/16 09/16/16 12:42 12:47 12:56 13:02 Temp 97.6 97.6 97.6 97.6 Pulse 72 68 Resp 16 16 16 B/P 105/68 114/56 Pulse Ox 99 98 98 99 O2 Delivery Room Air Room Air Room Air Room Air O2 Flow Rate 10.0 09/16/16 09/16/16 09/16/16 09/16/16 13:39 13:46 13:54 13:57 Temp 97.8 97.8 Pulse 65 92 Resp 18 B/P 100/61 95/64 Pulse Ox 94 99 99 O2 Delivery Room Air Room Air Room Air Room Air 09/16/16 09/16/16 09/16/16 09/16/16 14:09 14:24 14:39 14:40 Pulse 73 85 92 B/P 107/62 95/62 93/62 Pulse Ox 96 97 98 98 O2 Delivery Room Air Room Air Room Air Room Air 09/16/16 09/16/16 09/16/16 09/16/16 14:40 14:50 15:09 18:00 Pulse 102 Resp 18 B/P 88/49 87/58 Pulse Ox 98 98 96 O2 Delivery Room Air Room Air 09/16/16 09/16/16 09/16/16 09/16/16 18:03 19:05 20:05 20:10 Pulse 83 Resp 15 B/P 106/66 Pulse Ox 96 96 99 O2 Delivery Room Air Room Air Room Air 09/16/16 09/16/16 09/16/16 09/17/16 20:59 21:57 23:00 02:02 Temp 97.3 97.3 Pulse 105 Resp 18 B/P 95/54 Pulse Ox 99 100 O2 Delivery Room Air Room Air Room Air Room Air 09/17/16 09/17/16 09/17/16 09/17/16 03:00 04:41 05:26 05:28 Temp 97.4 97.4 Pulse 90 Resp 18 B/P 101/55 Pulse Ox 100 O2 Delivery Room Air Room Air Room Air Room Air 09/17/16 09/17/16 09/17/16 09/17/16 06:36 07:00 08:00 08:32 Temp 97.3 97.3 Pulse 81 Resp 16 B/P 94/63 Pulse Ox 96 99 O2 Delivery Room Air Room Air Room Air Room Air 09/17/16 09:24 Pulse Ox 99 O2 Delivery Room Air Intake and Output 09/16/16 09/16/16 09/17/16 15:00 23:00 07:00 Intake Total 850 ml 840 ml 1766 ml Output Total 50 ml Balance 800 ml 840 ml 1766 ml NAVEEN DELCID APRN Sep 17, 2016 09:54
[2016-09-17 11:00] VITALS: BP 95/49
[2016-09-17] MEDS: NICOTINE POLACRILEX 2MG GUM PACKAGE of 12. BC PRN (11:38)
[2016-09-17 15:00] VITALS: BP 112/56
--- NOTE | 2016-09-17 15:27 | PATHOLOGY ---
PATHOLOGY REPORT * * * * * * * * FINAL DIAGNOSIS: Segments of fibrocartilaginous and fibroadipose tissue and bone, lumbar decompression: - Degenerative changes of fibrocartilaginous tissue. COMMENT: There is no evidence of an acute inflammatory process or malignancy. (JPM:xuan; d/t: 09/17/2016) REPORT ELECTRONICALLY SIGNED BY: Navin Shaikh M.D. DATE/TIME: 09/17/2016 15:26 * * * * * * * * GROSS PATHOLOGY: Received in formalin labeled "Tamy Riggs and lumbar decompression," are multiple segments of blood-tinged, white-myers rubbery and gritty tissue admixed with possible bone measuring 4.8 x 2.5 x 1.4 cm in aggregate dimensions. The tissue is submitted in cassette A1, following decalcification. (TTL:xuan; 09/16/2016) INITIAL CPT CODE(S): A; 02309, 62700 Professional services performed by [email or web address] [address] Technical services performed by [email or web address] at [address] [place] [address]. SPECIMEN(S) RECEIVED: A.Lumbar decompression CLINICAL HISTORY: Bilateral leg pain, mild stenosis PATIENT: NICHOLAS RIGGSI Cyndee /AGE: 7 1965 (Age: 51) PATIENT #: [id number] ALT CASE #: SPECIMEN COLLECTION DATE: 09/16/2016 SPECIMEN RECEIVED DATE: 09/16/2016 [facility] - [address] [place] [address] - PHONE: [phone] * * * END OF REPORT * * *
[2016-09-17 19:33] VITALS: BP 81/50
[2016-09-17 23:44] VITALS: BP 91/52
[2016-09-18] MEDS: OXYCODONE/APAP 10/325 TABLET. PO PRN ×6 (01:09→23:37)
[2016-09-18 03:00] VITALS: BP 81/51
[2016-09-18] MEDS: POTASSIUM CL 20MEQ D5-0.45NACL 1,000 ML IV SCH (05:30)
[2016-09-18 07:00] VITALS: BP 88/55
[2016-09-18] MEDS: ALBUTEROL SULFATE 2.5 MG/3 ML NEBU. NEB SCH ×4 (07:01→19:37)
[2016-09-18] MEDS: DOCUSATE SODIUM 100 MG CAPSULE PO SCH ×2 (09:00→20:35)
[2016-09-18] MEDS: NICOTINE 21MG PATCH. TD SCH (09:00)
[2016-09-18 11:00] VITALS: BP 96/59
[2016-09-18] MEDS ORDERED: DIAZ5TAB PO (13:13)
[2016-09-18] MEDS ORDERED: OXYC-250 PO (13:13)
[2016-09-18 15:00] VITALS: BP 87/50
[2016-09-18] MEDS: FENTANYL PF 100 MCG/2 ML VIAL. IV PRN ×3 (15:35→23:50)
[2016-09-18 19:00] VITALS: BP 88/50
--- NOTE | 2016-09-18 22:57 | PDOC ---
PROGRESS NOTES Subjective Subjective patient seen at 1310 pain improved wants to go home Objective Objective Vital Signs Date Time Temp Pulse Resp B/P Pulse Ox O2 Delivery O2 Flow Rate FiO2 09/18/16 20:12 20 98 Room Air 09/18/16 19:00 98.9 99 88/50 98.9 09/18/16 16:05 10.0 Intake and Output 09/18/16 07:00 Intake Total 2446 ml Balance 2446 ml Intake Oral 250 ml IV Total 2196 ml # Voids 2 Physical Exam General: Alert, Oriented X3, Cooperative, No acute distress Neuro: Other (LE strength normal) Skin: Other (dressing C,D,I,flat) Assessment Assessment Problems Medical Problems: (1) Post-op pain Status: Acute (2) Postoperative back pain Status: Acute Plan Plan of Care may dc home f/u 2 weeks Comment Review of Relevant I have reviewed the following items dot (where applicable) has been applied. Labs Microbiology 09/14/16 Urine Culture - Final, Complete 09/14/16 Urine Culture Result 1 (ROBIN) - Final, Complete 09/14/16 Antimicrobic Susceptibility - Final, Complete Medications Current Medications Hydromorphone HCl (Dilaudid) 1 mg 1X ONCE IV Last administered on 09/12/16 20 :36; Start 09/12/16 at 20:15; Stop 09/12/16 at 20:16; Status DC Diazepam (Valium) 5 mg 1X ONCE IV Last administered on 09/12/16 20:37; Start 09/12/16 at 20:15; Stop 09/12/16 at 20:16; Status DC Ondansetron HCl (Zofran) 4 mg PRN Q8HRS PRN IV NAUSEA/VOMITING; Start 09/12/16 at 21:00; Stop 09/13/16 at 20:59; Status DC Morphine Sulfate 4 mg 4 mg PRN Q2HR PRN IV PAIN Last administered on 09/13/16 20:42; Start 09/12/16 at 21:00; Stop 09/13/16 at 20:59; Status DC Sodium Chloride (Iv Sodium Chloride 0.9% 1000ml Bag) 1,000 ml @ 100 mls/hr Q10H IV Last administered on 09/14/16 00:39; Start 09/12/16 at 20:55; Stop at 20:54; Status DC Diazepam (Valium) 5 mg PRN TID PRN PO MUSCLE SPASMS Last administered on 07:14; Start 09/12/16 at 23:00 Nicotine (Nicoderm Cq 21mg) 1 patch DAILY TD Last administered on 09/18/16 09: 00; Start 09/13/16 at 09:00 Nicotine Polacrilex (Nicorette Gum) 1 each PRN Q1HR PRN BC SMOKING CESSATION Last administered on 09/17/16 11:38; Start 09/12/16 at 23:00 Docusate Sodium (Colace) 100 mg BID PO Last administered on 09/18/16 20:35; Start 09/13/16 at 10:00 Oxycodone/ Acetaminophen (Percocet 7.5/ 325) 2 tab PRN Q4HRS PRN PO PAIN Last administered on 09/14/16 12:17; Start 09/13/16 at 10:00; Stop 09/14/16 at 15:00 ; Status DC Non-Formulary Medication 2 puff Q4HRS INH FOR ASTHMA; Start 09/13/16 at 12:00; Status UNV Oxycodone/ Acetaminophen (Percocet 7.5/ 325) 1 tab PRN Q4HRS PRN PO PAIN; Start 09/13/16 at 10:00; Stop 09/14/16 at 15:00; Status DC Dexamethasone Sodium Phosphate (Decadron) 4 mg Q6HRS IV ; Start 09/13/16 at 12: 00; Stop 09/13/16 at 12:00; Status DC Albuterol Sulfate (Ventolin Neb Soln) 2.5 mg Q4HRS NEB Last administered on 09/15 06:47; Start 09/13/16 at 12:00; Stop 09/15/16 at 08:10; Status DC Dexamethasone Sodium Phosphate (Decadron) 4 mg Q6HRS IV Last administered on 13:56; Start 09/13/16 at 10:00; Stop 09/16/16 at 17:51; Status DC Gadobutrol (Gadavist) 7.5 mmol 1X ONCE IV Last administered on 09/13/16 16:00 ; Start 09/13/16 at 15:45; Stop 09/13/16 at 15:46; Status DC Morphine Sulfate 4 mg PRN Q2HR PRN IV PAIN Last administered on 09/16/16 13:57 ; Start 09/14/16 at 15:00; Stop 09/16/16 at 19:16; Status DC Oxycodone/ Acetaminophen (Percocet 10/325) 1 tab PRN Q4HRS PRN PO PAIN Last administered on 09/16/16 18:03; Start 09/14/16 at 15:00 Oxycodone/ Acetaminophen 2 tab 2 tab PRN Q4HRS PRN PO PAIN Last administered on 09/18/16 19:42; Start 09/14/16 at 15:15 Potassium Chloride/Dextrose/ Sod Cl (KCl 20 Meq In D5W-1/2 NS) 1,000 ml @ 75 mls/hr [id number] IV Last administered on 09/18/16 05:30; Start 09/14/16 at 20:15 ; Stop 09/18/16 at 15:14; Status DC Albuterol Sulfate (Ventolin Neb Soln) 2.5 mg QID NEB Last administered on 19:37; Start 09/15/16 at 13:00 Iohexol (Omnipaque 180 Mg/ml) 20 ml 1X ONCE IJ Last administered on 09/15/16 14:24; Start 09/15/16 at 08:45; Stop 09/15/16 at 08:46; Status DC Info 1 each 1 each PRN DAILY PRN MC SEE COMMENTS; Start 09/15/16 at 08:45; Stop 09/17/16 at 08:44; Status DC Cefazolin Sodium/ Sodium Chloride (Ancef/Iv Sodium Chloride 0.9% 100ml) 100 ml @ 200 mls/hr 1X PREOP IV ; Start 09/16/16 at 08:30; Stop 09/18/16 at 15:29; Status DC Ondansetron HCl (Zofran) 4 mg PRN Q6HRS PRN IV Nausea; Start 09/16/16 at 07:00; Stop 09/17/16 at 06:59; Status DC Morphine Sulfate 1 mg 1 mg PRN Q10MIN PRN IV SEVERE PAIN; Start 09/16/16 at 07: 00; Stop 09/16/16 at 20:04; Status DC Lactated Ringer's (Iv Lactated Ringers) 1,000 ml @ 0 mls/hr Q0M IV Last administered on 09/16/16 08:13; Start 09/16/16 at 07:00; Stop 09/16/16 at 18:59; Status DC Lidocaine HCl 2 ml 1X PRN PRN ID IV START; Start 09/16/16 at 07:00; Stop at 06:59; Status DC Hydromorphone HCl (Dilaudid) 0.5 mg PRN Q10MIN PRN IV SEVERE PAIN, Second choice; Start 09/16/16 at 07:00; Stop 09/16/16 at 20:04; Status DC Prochlorperazine Edisylate 5 mg 5 mg PACU PRN PRN IV NAUSEA; Start 09/16/16 at 07:00; Stop 09/17/16 at 06:59; Status DC Bacitracin/Sodium Chloride (Iv Sodium Chloride 0.9% 1000ml Bag) 1,000 ml @ 1, 000 mls/hr 1X PERIOP ONCE IRR ; Start 09/16/16 at 06:00; Stop 09/16/16 at 06:59; Status DC Bisacodyl (Dulcolax Supp) 10 mg PRN DAILY PRN [place] CONSTIPATION Last administered on 09/15/16 21:11; Start 09/15/16 at 20:15 Polyethylene Glycol (miraLAX PACKET) 17 gm PRN BID PRN PO CONSTIPATION; Start 09/15/16 at 20:15 Bupivacaine HCl/ Epinephrine Bitart (Sensorcain-Mpf Epi 0.5%-1:872244) 30 ml STK -MED ONCE .ROUTE Last administered on 09/16/16 09:47; Start 09/16/16 at 07:26; Stop 09/16/16 at 07:27; Status DC Gelatin (Gelfoam Size 100) 1 each STK-MED ONCE .ROUTE Last administered on 09/16 09:47; Start 09/16/16 at 07:26; Stop 09/16/16 at 07:27; Status DC Ketorolac Tromethamine (Toradol For Or Only) 60 mg STK-MED ONCE .ROUTE Last administered on 09/16/16 09:47; Start 09/16/16 at 07:27; Stop 09/16/16 at 07:28; Status DC Thrombin 85272 unit 20,000 unit STK-MED ONCE TP Last administered on 09/16/16t 09:47; Start 09/16/16 at 07:27; Stop 09/16/16 at 07:28; Status DC Propofol (Diprivan) 0 ml @ As Directed STK-MED ONCE IV ; Start 09/16/16 at 07:37 ; Stop 09/16/16 at 07:38; Status DC Lidocaine HCl 100 mg STK-MED ONCE .ROUTE ; Start 09/16/16 at 07:37; Stop 09/16/16 at 07:38; Status DC Dexamethasone Sodium Phosphate (Decadron) 20 mg STK-MED ONCE .ROUTE ; Start 09/16 at 07:39; Stop 09/16/16 at 07:40; Status DC Ondansetron HCl (Zofran) 4 mg STK-MED ONCE .ROUTE ; Start 09/16/16 at 07:39; Stop 09/16/16 at 07:40; Status DC Rocuronium [place] (Zemuron) 50 mg STK-MED ONCE .ROUTE ; Start 09/16/16 at 07:39 ; Stop 09/16/16 at 07:40; Status DC Fentanyl Citrate (Fentanyl 2ml Vial) 100 mcg STK-MED ONCE .ROUTE ; Start at 07:39; Stop 09/16/16 at 07:40; Status DC Remifentanil HCl (Ultiva) 2 mg STK-MED ONCE IV ; Start 09/16/16 at 07:40; Stop at 07:41; Status DC Remifentanil HCl (Ultiva) 2 mg STK-MED ONCE IV ; Start 09/16/16 at 07:40; Stop at 07:41; Status DC Dexamethasone Sodium Phosphate (Decadron) 20 mg STK-MED ONCE .ROUTE ; Start 09/16 at 07:59; Stop 09/16/16 at 08:00; Status DC Ondansetron HCl 4 mg 4 mg STK-MED ONCE .ROUTE ; Start 09/16/16 at 07:59; Stop 09/16/16 at 08:00; Status DC Propofol 50 ml @ As Directed STK-MED ONCE IV ; Start 09/16/16 at 07:59; Stop 09/16 at 08:00; Status DC Propofol (Diprivan) 20 ml @ As Directed STK-MED ONCE IV ; Start 09/16/16 at 07:59 ; Stop 09/16/16 at 08:00; Status DC Lidocaine HCl 100 mg STK-MED ONCE .ROUTE ; Start 09/16/16 at 07:59; Stop 09/16/16 at 08:00; Status DC Phenylephrine HCl (Boni-Synephrine Inj) 10 mg STK-MED ONCE .ROUTE ; Start at 07:59; Stop 09/16/16 at 08:00; Status DC Midazolam HCl (Versed) 2 mg STK-MED ONCE .ROUTE ; Start 09/16/16 at 07:59; Stop 09/16/16 at 08:00; Status DC Remifentanil HCl (Ultiva) 2 mg STK-MED ONCE IV ; Start 09/16/16 at 08:00; Stop at 08:01; Status DC Multi-Ingred Cream/Lotion/Oil/ Oint 7 yehuda 7 yehuda STK-MED ONCE .ROUTE ; Start 09/16 at 08:12; Stop 09/16/16 at 08:13; Status DC Cefazolin Sodium/ Dextrose (Ancef 2gm Premix) 50 ml @ As Directed STK-MED ONCE IV ; Start 09/16/16 at 08:49; Stop 09/16/16 at 08:50; Status DC Desflurane 60 ml 60 ml STK-MED ONCE IH ; Start 09/16/16 at 09:29; Stop 09/16/16 at 09:30; Status DC Cefazolin Sodium/ Dextrose 50 ml @ 100 mls/hr 1X ONCE IV Last administered on 09/16/16t 09:38; Start 09/16/16 at 10:30; Stop 09/16/16 at 10:59; Status DC Propofol (Diprivan) 50 ml @ As Directed STK-MED ONCE IV ; Start 09/16/16 at 10:22 ; Stop 09/16/16 at 10:23; Status DC Fentanyl Citrate (Fentanyl 2ml Vial) 25 mcg PRN Q5MIN PRN IV Acute Pain; Start 09/16/16 at 12:00; Stop 09/16/16 at 20:04; Status DC Fentanyl Citrate (Fentanyl 2ml Vial) 50 mcg PRN Q5MIN PRN IV Acute Pain Last administered on 09/16/16 12:56; Start 09/16/16 at 12:00; Stop 09/16/16 at 20:04; Status DC Fentanyl Citrate 100 mcg 100 mcg STK-MED ONCE .ROUTE ; Start 09/16/16 at 12:00; Stop 09/16/16 at 12:01; Status DC Morphine Sulfate (Morphine 30 Mg/ 30 ml [employer]) 30 ml @ 0 mls/hr CONT PRN PRN IV PROTOCOL; Start 09/16/16 at 14:45; Stop 09/16/16 at 20:04; Status DC Dexamethasone Sodium Phosphate (Decadron) 4 mg Q6H IV ; Start 09/16/16 at 20:00; Stop 09/16/16 at 20:00; Status DC Fentanyl Citrate (Fentanyl 2ml Vial) 50 mcg PRN Q1HR PRN IV PAIN Last administered on 09/18/16 19:42; Start 09/16/16 at 20:00 Active Scripts Active Cyclobenzaprine Hcl 10 Mg Tablet 10 Mg PO PRN TID PRN 60 Days Oxycodon-Acetaminophen 7.5-325 (Oxycodone Hcl/Acetaminophen) 1 Each Tablet 2 Tab PO PRN Q4HRS PRN 60 Days Colace (Docusate Sodium) 100 Mg Capsule 100 Mg PO BID 60 Days Reported Percocet 10-325 Mg Tablet (Oxycodone/Acetaminophen) 1 Each Tablet 1 Tab PO QID PRN Percocet 10-325 Mg Tablet (Oxycodone/Acetaminophen) 1 Each Tablet 1 Tab PO QID PRN Valium (Diazepam) 5 Mg Tablet 5 Mg PO TID PRN Ventolin Hfa Inhaler (Albuterol Sulfate) 18 Gm Hfa.aer.ad 2 Puff INH Q4HRS Not used w hile in hosp. May resume at home as needed as directed. Vitals/I & O Vital Sign - Last 24 Hours 09/17/16 09/17/16 09/18/16 09/18/16 23:32 23:44 01:09 03:00 Temp 97.8 96.4 97.8 96.4 Pulse 87 80 Resp 18 19 B/P 91/52 81/51 Pulse Ox 97 98 O2 Delivery Room Air Room Air Room Air Room Air 09/18/16 09/18/16 09/18/16 09/18/16 05:20 07:00 07:02 08:00 Temp 97.7 97.7 Pulse 96 Resp 18 B/P 88/55 Pulse Ox 98 96 O2 Delivery Room Air Room Air Room Air Room Air O2 Flow Rate 10.0 09/18/16 09/18/16 09/18/16 09/18/16 09:01 10:01 10:37 11:00 Temp 98.1 98.1 Pulse 87 Resp 19 18 B/P 96/59 Pulse Ox 96 100 O2 Delivery Room Air Room Air Room Air O2 Flow Rate 10.0 09/18/16 09/18/16 09/18/16 09/18/16 13:59 14:45 15:00 15:35 Temp 98.1 98.1 Pulse 89 Resp 18 16 18 16 B/P 87/50 Pulse Ox 98 O2 Delivery Room Air Room Air Room Air Room Air 09/18/16 09/18/16 09/18/16 09/18/16 16:05 19:00 19:37 19:42 Temp 98.9 98.9 Pulse 99 Resp 18 20 B/P 88/50 Pulse Ox 98 100 98 O2 Delivery Room Air Room Air Room Air O2 Flow Rate 10.0 09/18/16 09/18/16 19:42 20:12 Resp 20 20 Pulse Ox 98 98 O2 Delivery Room Air Room Air Intake and Output 09/17/16 09/17/16 09/18/16 15:00 23:00 07:00 Intake Total 1190 ml 1256 ml Balance 1190 ml 1256 ml SONIA NICHOLSON MD Sep 18, 2016 22:57
[2016-09-18 23:00] VITALS: BP 91/59
[2016-09-19 03:00] VITALS: BP 87/50
[2016-09-19] MEDS: FENTANYL PF 100 MCG/2 ML VIAL. IV PRN ×3 (05:06→23:41)
[2016-09-19] MEDS: OXYCODONE/APAP 10/325 TABLET. PO PRN ×2 (05:06→08:58)
[2016-09-19 07:00] VITALS: BP 83/57
[2016-09-19] MEDS: ALBUTEROL SULFATE 2.5 MG/3 ML NEBU. NEB SCH ×4 (07:05→20:34)
[2016-09-19] MEDS: NICOTINE 21MG PATCH. TD SCH (08:57)
[2016-09-19] MEDS: DOCUSATE SODIUM 100 MG CAPSULE PO SCH ×2 (08:58→19:51)
[2016-09-19 11:00] VITALS: BP 71/45
[2016-09-19] MEDS: IV NORMAL SALINE 1000ML BAG 1,000 ML IV SCH ×2 (11:15→21:15)
--- NOTE | 2016-09-19 12:03 | PDOC ---
PROGRESS NOTES Subjective Subjective c/o back pain, no leg pain Objective Objective Vital Signs Date Time Temp Pulse Resp B/P Pulse Ox O2 Delivery O2 Flow Rate FiO2 09/19/16 11:30 Room Air 09/19/16 11:00 98.9 91 18 71/45 94 98.9 09/19/16 10:49 10.0 Intake and Output 09/19/16 07:00 # Voids 3 Physical Exam General: Alert, Oriented X3, Cooperative MUSCULOSKELETAL: Other ([place]) Neuro: Normal speech, Other (strength in LE normal) Skin: Other (dressing intact, flat, small SS drainge) Assessment Assessment Problems Medical Problems: (1) Post-op pain Status: Acute (2) Postoperative back pain Status: Acute Plan Plan of Care resume IVF labs encouraged increased as tolerated pain medication Comment Review of Relevant I have reviewed the following items dot (where applicable) has been applied. Labs Microbiology 09/14/16 Urine Culture - Final, Complete 09/14/16 Urine Culture Result 1 (ROBIN) - Final, Complete 09/14/16 Antimicrobic Susceptibility - Final, Complete Medications Current Medications Hydromorphone HCl (Dilaudid) 1 mg 1X ONCE IV Last administered on 09/12/16 20 :36; Start 09/12/16 at 20:15; Stop 09/12/16 at 20:16; Status DC Diazepam (Valium) 5 mg 1X ONCE IV Last administered on 09/12/16 20:37; Start 09/12/16 at 20:15; Stop 09/12/16 at 20:16; Status DC Ondansetron HCl (Zofran) 4 mg PRN Q8HRS PRN IV NAUSEA/VOMITING; Start 09/12/16 at 21:00; Stop 09/13/16 at 20:59; Status DC Morphine Sulfate 4 mg 4 mg PRN Q2HR PRN IV PAIN Last administered on 09/13/16 20:42; Start 09/12/16 at 21:00; Stop 09/13/16 at 20:59; Status DC Sodium Chloride (Iv Sodium Chloride 0.9% 1000ml Bag) 1,000 ml @ 100 mls/hr Q10H IV Last administered on 09/14/16 00:39; Start 09/12/16 at 20:55; Stop at 20:54; Status DC Diazepam (Valium) 5 mg PRN TID PRN PO MUSCLE SPASMS Last administered on 07:14; Start 09/12/16 at 23:00 Nicotine (Nicoderm Cq 21mg) 1 patch DAILY TD Last administered on 09/19/16 08: 57; Start 09/13/16 at 09:00 Nicotine Polacrilex (Nicorette Gum) 1 each PRN Q1HR PRN BC SMOKING CESSATION Last administered on 09/17/16 11:38; Start 09/12/16 at 23:00 Docusate Sodium (Colace) 100 mg BID PO Last administered on 09/19/16 08:58; Start 09/13/16 at 10:00 Oxycodone/ Acetaminophen (Percocet 7.5/ 325) 2 tab PRN Q4HRS PRN PO PAIN Last administered on 09/14/16 12:17; Start 09/13/16 at 10:00; Stop 09/14/16 at 15:00 ; Status DC Non-Formulary Medication 2 puff Q4HRS INH FOR ASTHMA; Start 09/13/16 at 12:00; Status UNV Oxycodone/ Acetaminophen (Percocet 7.5/ 325) 1 tab PRN Q4HRS PRN PO PAIN; Start 09/13/16 at 10:00; Stop 09/14/16 at 15:00; Status DC Dexamethasone Sodium Phosphate (Decadron) 4 mg Q6HRS IV ; Start 09/13/16 at 12: 00; Stop 09/13/16 at 12:00; Status DC Albuterol Sulfate (Ventolin Neb Soln) 2.5 mg Q4HRS NEB Last administered on 09/15 06:47; Start 09/13/16 at 12:00; Stop 09/15/16 at 08:10; Status DC Dexamethasone Sodium Phosphate (Decadron) 4 mg Q6HRS IV Last administered on 13:56; Start 09/13/16 at 10:00; Stop 09/16/16 at 17:51; Status DC Gadobutrol (Gadavist) 7.5 mmol 1X ONCE IV Last administered on 09/13/16 16:00 ; Start 09/13/16 at 15:45; Stop 09/13/16 at 15:46; Status DC Morphine Sulfate 4 mg PRN Q2HR PRN IV PAIN Last administered on 09/16/16 13:57 ; Start 09/14/16 at 15:00; Stop 09/16/16 at 19:16; Status DC Oxycodone/ Acetaminophen (Percocet 10/325) 1 tab PRN Q4HRS PRN PO PAIN Last administered on 09/16/16 18:03; Start 09/14/16 at 15:00; Stop 09/19/16 at 11:51; Status DC Oxycodone/ Acetaminophen 2 tab 2 tab PRN Q4HRS PRN PO PAIN Last administered on 09/19/16 08:58; Start 09/14/16 at 15:15; Stop 09/19/16 at 11:51; Status DC Potassium Chloride/Dextrose/ Sod Cl (KCl 20 Meq In D5W-1/2 NS) 1,000 ml @ 75 mls/hr [id number] IV Last administered on 09/18/16 05:30; Start 09/14/16 at 20:15 ; Stop 09/18/16 at 15:14; Status DC Albuterol Sulfate (Ventolin Neb Soln) 2.5 mg QID NEB Last administered on 11:27; Start 09/15/16 at 13:00 Iohexol (Omnipaque 180 Mg/ml) 20 ml 1X ONCE IJ Last administered on 09/15/16 14:24; Start 09/15/16 at 08:45; Stop 09/15/16 at 08:46; Status DC Info 1 each 1 each PRN DAILY PRN MC SEE COMMENTS; Start 09/15/16 at 08:45; Stop 09/17/16 at 08:44; Status DC Cefazolin Sodium/ Sodium Chloride (Ancef/Iv Sodium Chloride 0.9% 100ml) 100 ml @ 200 mls/hr 1X PREOP IV ; Start 09/16/16 at 08:30; Stop 09/18/16 at 15:29; Status DC Ondansetron HCl (Zofran) 4 mg PRN Q6HRS PRN IV Nausea; Start 09/16/16 at 07:00; Stop 09/17/16 at 06:59; Status DC Morphine Sulfate 1 mg 1 mg PRN Q10MIN PRN IV SEVERE PAIN; Start 09/16/16 at 07: 00; Stop 09/16/16 at 20:04; Status DC Lactated Ringer's (Iv Lactated Ringers) 1,000 ml @ 0 mls/hr Q0M IV Last administered on 09/16/16 08:13; Start 09/16/16 at 07:00; Stop 09/16/16 at 18:59; Status DC Lidocaine HCl 2 ml 1X PRN PRN ID IV START; Start 09/16/16 at 07:00; Stop at 06:59; Status DC Hydromorphone HCl (Dilaudid) 0.5 mg PRN Q10MIN PRN IV SEVERE PAIN, Second choice; Start 09/16/16 at 07:00; Stop 09/16/16 at 20:04; Status DC Prochlorperazine Edisylate 5 mg 5 mg PACU PRN PRN IV NAUSEA; Start 09/16/16 at 07:00; Stop 09/17/16 at 06:59; Status DC Bacitracin/Sodium Chloride (Iv Sodium Chloride 0.9% 1000ml Bag) 1,000 ml @ 1, 000 mls/hr 1X PERIOP ONCE IRR ; Start 09/16/16 at 06:00; Stop 09/16/16 at 06:59; Status DC Bisacodyl (Dulcolax Supp) 10 mg PRN DAILY PRN [place] CONSTIPATION Last administered on 09/15/16 21:11; Start 09/15/16 at 20:15 Polyethylene Glycol (miraLAX PACKET) 17 gm PRN BID PRN PO CONSTIPATION; Start 09/15/16 at 20:15 Bupivacaine HCl/ Epinephrine Bitart (Sensorcain-Mpf Epi 0.5%-1:615628) 30 ml STK -MED ONCE .ROUTE Last administered on 09/16/16 09:47; Start 09/16/16 at 07:26; Stop 09/16/16 at 07:27; Status DC Gelatin (Gelfoam Size 100) 1 each STK-MED ONCE .ROUTE Last administered on 09/16 09:47; Start 09/16/16 at 07:26; Stop 09/16/16 at 07:27; Status DC Ketorolac Tromethamine (Toradol For Or Only) 60 mg STK-MED ONCE .ROUTE Last administered on 09/16/16 09:47; Start 09/16/16 at 07:27; Stop 09/16/16 at 07:28; Status DC Thrombin 28478 unit 20,000 unit STK-MED ONCE TP Last administered on 09/16/16 09:47; Start 09/16/16 at 07:27; Stop 09/16/16 at 07:28; Status DC Propofol (Diprivan) 0 ml @ As Directed STK-MED ONCE IV ; Start 09/16/16 at 07:37 ; Stop 09/16/16 at 07:38; Status DC Lidocaine HCl 100 mg STK-MED ONCE .ROUTE ; Start 09/16/16 at 07:37; Stop 09/16/16 at 07:38; Status DC Dexamethasone Sodium Phosphate (Decadron) 20 mg STK-MED ONCE .ROUTE ; Start 09/16 at 07:39; Stop 09/16/16 at 07:40; Status DC Ondansetron HCl (Zofran) 4 mg STK-MED ONCE .ROUTE ; Start 09/16/16 at 07:39; Stop 09/16/16 at 07:40; Status DC Rocuronium [place] (Zemuron) 50 mg STK-MED ONCE .ROUTE ; Start 09/16/16 at 07:39 ; Stop 09/16/16 at 07:40; Status DC Fentanyl Citrate (Fentanyl 2ml Vial) 100 mcg STK-MED ONCE .ROUTE ; Start at 07:39; Stop 09/16/16 at 07:40; Status DC Remifentanil HCl (Ultiva) 2 mg STK-MED ONCE IV ; Start 09/16/16 at 07:40; Stop at 07:41; Status DC Remifentanil HCl (Ultiva) 2 mg STK-MED ONCE IV ; Start 09/16/16 at 07:40; Stop at 07:41; Status DC Dexamethasone Sodium Phosphate (Decadron) 20 mg STK-MED ONCE .ROUTE ; Start 09/16 at 07:59; Stop 09/16/16 at 08:00; Status DC Ondansetron HCl 4 mg 4 mg STK-MED ONCE .ROUTE ; Start 09/16/16 at 07:59; Stop 09/16/16 at 08:00; Status DC Propofol 50 ml @ As Directed STK-MED ONCE IV ; Start 09/16/16 at 07:59; Stop 09/16 at 08:00; Status DC Propofol (Diprivan) 20 ml @ As Directed STK-MED ONCE IV ; Start 09/16/16 at 07:59 ; Stop 09/16/16 at 08:00; Status DC Lidocaine HCl 100 mg STK-MED ONCE .ROUTE ; Start 09/16/16 at 07:59; Stop 09/16/16 at 08:00; Status DC Phenylephrine HCl (Boni-Synephrine Inj) 10 mg STK-MED ONCE .ROUTE ; Start at 07:59; Stop 09/16/16 at 08:00; Status DC Midazolam HCl (Versed) 2 mg STK-MED ONCE .ROUTE ; Start 09/16/16 at 07:59; Stop 09/16/16 at 08:00; Status DC Remifentanil HCl (Ultiva) 2 mg STK-MED ONCE IV ; Start 09/16/16 at 08:00; Stop at 08:01; Status DC Multi-Ingred Cream/Lotion/Oil/ Oint 7 yehuda 7 yehuda STK-MED ONCE .ROUTE ; Start 09/16 at 08:12; Stop 09/16/16 at 08:13; Status DC Cefazolin Sodium/ Dextrose (Ancef 2gm Premix) 50 ml @ As Directed STK-MED ONCE IV ; Start 09/16/16 at 08:49; Stop 09/16/16 at 08:50; Status DC Desflurane 60 ml 60 ml STK-MED ONCE IH ; Start 09/16/16 at 09:29; Stop 09/16/16 at 09:30; Status DC Cefazolin Sodium/ Dextrose 50 ml @ 100 mls/hr 1X ONCE IV Last administered on 09/16/16t 09:38; Start 09/16/16 at 10:30; Stop 09/16/16 at 10:59; Status DC Propofol (Diprivan) 50 ml @ As Directed STK-MED ONCE IV ; Start 09/16/16 at 10:22 ; Stop 09/16/16 at 10:23; Status DC Fentanyl Citrate (Fentanyl 2ml Vial) 25 mcg PRN Q5MIN PRN IV Acute Pain; Start 09/16/16 at 12:00; Stop 09/16/16 at 20:04; Status DC Fentanyl Citrate (Fentanyl 2ml Vial) 50 mcg PRN Q5MIN PRN IV Acute Pain Last administered on 09/16/16 12:56; Start 09/16/16 at 12:00; Stop 09/16/16 at 20:04; Status DC Fentanyl Citrate 100 mcg 100 mcg STK-MED ONCE .ROUTE ; Start 09/16/16 at 12:00; Stop 09/16/16 at 12:01; Status DC Morphine Sulfate (Morphine 30 Mg/ 30 ml [employer]) 30 ml @ 0 mls/hr CONT PRN PRN IV PROTOCOL; Start 09/16/16 at 14:45; Stop 09/16/16 at 20:04; Status DC Dexamethasone Sodium Phosphate (Decadron) 4 mg Q6H IV ; Start 09/16/16 at 20:00; Stop 09/16/16 at 20:00; Status DC Fentanyl Citrate 50 mcg 50 mcg PRN Q1HR PRN IV PAIN Last administered on 10:19; Start 09/16/16 at 20:00 Sodium Chloride (Iv Sodium Chloride 0.9% 1000ml Bag) 1,000 ml @ 100 mls/hr Q10H IV Last administered on 09/19/16 11:15; Start 09/19/16 at 11:15 Oxycodone HCl (Roxicodone) 10 mg PRN Q4HRS PRN PO PAIN; Start 09/19/16 at 11:45 Oxycodone HCl (Roxicodone) 20 mg PRN Q4HRS PRN PO PAIN; Start 09/19/16 at 11:45 Active Scripts Active Cyclobenzaprine Hcl 10 Mg Tablet 10 Mg PO PRN TID PRN 60 Days Oxycodon-Acetaminophen 7.5-325 (Oxycodone Hcl/Acetaminophen) 1 Each Tablet 2 Tab PO PRN Q4HRS PRN 60 Days Colace (Docusate Sodium) 100 Mg Capsule 100 Mg PO BID 60 Days Reported Percocet 10-325 Mg Tablet (Oxycodone/Acetaminophen) 1 Each Tablet 1 Tab PO QID PRN Percocet 10-325 Mg Tablet (Oxycodone/Acetaminophen) 1 Each Tablet 1 Tab PO QID PRN Valium (Diazepam) 5 Mg Tablet 5 Mg PO TID PRN Ventolin Hfa Inhaler (Albuterol Sulfate) 18 Gm Hfa.aer.ad 2 Puff INH Q4HRS Not used w hile in hosp. May resume at home as needed as directed. Vitals/I & O Vital Sign - Last 24 Hours 09/18/16 09/18/16 09/18/16 09/18/16 13:59 15:00 15:35 19:00 Temp 98.1 98.9 98.1 98.9 Pulse 89 99 Resp 18 18 16 18 B/P 87/50 88/50 Pulse Ox 98 98 O2 Delivery Room Air Room Air Room Air Room Air 09/18/16 09/18/16 09/18/16 09/18/16 19:37 19:42 19:42 20:00 Resp 20 20 Pulse Ox 100 98 98 O2 Delivery Room Air Room Air Room Air Room Air 09/18/16 09/18/16 09/18/16 09/19/16 23:00 23:37 23:50 03:00 Temp 98.6 98.3 98.6 98.3 Pulse 91 62 Resp 18 20 20 18 B/P 91/59 87/50 Pulse Ox 95 98 98 96 O2 Delivery Room Air Room Air Room Air Room Air 09/19/16 09/19/16 09/19/16 09/19/16 05:06 05:06 07:00 07:07 Temp 98.3 98.3 Pulse 89 Resp 20 20 18 B/P 83/57 Pulse Ox 98 94 O2 Delivery Room Air Room Air Room Air Room Air 09/19/16 09/19/16 09/19/16 09/19/16 08:00 08:58 09:58 10:19 Resp 19 20 19 Pulse Ox 94 94 94 O2 Delivery Room Air Room Air Room Air Room Air O2 Flow Rate 10.0 10.0 10.0 10.0 09/19/16 09/19/16 09/19/16 10:49 11:00 11:30 Temp 98.9 98.9 Pulse 91 Resp 16 18 B/P 71/45 Pulse Ox 94 94 O2 Delivery Room Air Room Air Room Air O2 Flow Rate 10.0 SONIA NICHOLSON MD Sep 19, 2016 12:03
[2016-09-19 12:40] LABS: BASO % 0 % (0-3); EOS % 5 % (0-3); HEMATOCRIT 29.3 % (36.0-47.0); HEMOGLOBIN 9.8 g/dL (12.0-15.5); LYMPH # 3.2 x10^3/uL (1.0-4.8); LYMPH % 30 % (24-48); MEAN CORPUSCULAR HEMOGLOBIN 31 pg (25-35); MEAN CORPUSCULAR HGB CONC 34 g/dL (31-37); MEAN CORPUSCULAR VOLUME 94 fL (79-100); MONO % 6 % (0-9); NEUT % 60 % (31-73); PLATELET COUNT 415 x10^3/uL (140-400); RED BLOOD COUNT 3.13 x10^6/uL (3.50-5.40); RED CELL DISTRIBUTION WIDTH 13.5 % (11.5-14.5); WHITE BLOOD COUNT 10.7 x10^3/uL (4.0-11.0)
[2016-09-19 12:58] LABS: CALCIUM 8.6 mg/dL (8.5-10.1); CREATININE 0.9 mg/dL (0.6-1.0); GFR 65.8; POTASSIUM 3.9 mmol/L (3.5-5.1)
[2016-09-19 13:07] LABS: % EOS 7 % (0-5)
[2016-09-19 13:08] LABS: PLT ESTIMATE INCREASED (ADEQUATE); POLYCHROMASIA SLIGHT
[2016-09-19] MEDS: OXYCODONE IR 5 MG TABLET. PO PRN ×4 (14:10→22:15)
[2016-09-19 15:00] VITALS: BP 94/58
[2016-09-19 19:45] VITALS: BP 93/54
[2016-09-19] MEDS: DIAZEPAM 5 MG TABLET PO PRN (19:51)
[2016-09-19] MEDS: POLYETHYLENE GLYCOL 3350 17 GM PACKET. PO PRN (19:52)
[2016-09-19] MEDS ORDERED: METHYL SALICYLATE/MENTHOL TOPICAL OINTMENT 29GM TUBE. TP PRN (22:30)
[2016-09-20 03:13] VITALS: BP 89/49
[2016-09-20] MEDS: OXYCODONE IR 5 MG TABLET. PO PRN ×6 (03:14→22:17)
[2016-09-20 07:00] VITALS: BP 91/68
[2016-09-20] MEDS: IV NORMAL SALINE 1000ML BAG 1,000 ML IV SCH (07:15)
[2016-09-20] MEDS: ALBUTEROL SULFATE 2.5 MG/3 ML NEBU. NEB SCH ×3 (07:44→15:51)
[2016-09-20] MEDS: DOCUSATE SODIUM 100 MG CAPSULE PO SCH ×2 (08:18→20:31)
[2016-09-20] MEDS: POLYETHYLENE GLYCOL 3350 17 GM PACKET. PO PRN (08:18)
[2016-09-20] MEDS: NICOTINE 21MG PATCH. TD SCH (08:18)
[2016-09-20] MEDS: DIAZEPAM 5 MG TABLET PO PRN ×2 (08:18→22:17)
[2016-09-20 11:00] VITALS: BP 98/59
--- NOTE | 2016-09-20 11:02 | PDOC ---
PROGRESS NOTES Subjective Subjective Resting in bed still c/o back pain and some right thigh pain but improved from pre op c/o foul smelling urine would like to go home Objective Objective Vital Signs Date Time Temp Pulse Resp B/P Pulse Ox O2 Delivery O2 Flow Rate FiO2 09/20/16 09:25 93 Room Air 09/20/16 07:00 97.9 84 18 91/68 97.9 09/19/16 18:18 10.0 Intake and Output 09/20/16 07:00 Intake Total 250 ml Balance 250 ml Intake Oral 250 ml Physical Exam General: Alert, Oriented X3, Cooperative, No acute distress MUSCULOSKELETAL: Other (CORONA) Neuro: Normal speech, Other (strength 5/5 in BLE) Psych/Mental Status: Mental status NL Skin: Other (Dressing C,D,I, flat) Assessment Assessment Problems Medical Problems: (1) Post-op pain Status: Acute (2) Postoperative back pain Status: Acute Plan Plan of Care will consult Dr. Becker regarding UTI possible dc later today Comment Review of Relevant I have reviewed the following items dot (where applicable) has been applied. Labs Laboratory Tests Test 09/19/16 12:20 White Blood Count 10.7x10^3/uL (4.0-11.0) Red Blood Count 3.13x10^6/uL (3.50-5.40) Hemoglobin 9.8g/dL (12.0-15.5) Hematocrit 29.3% (36.0-47.0) Mean Corpuscular Volume 94fL (79-100) Mean Corpuscular Hemoglobin 31pg (25-35) Mean Corpuscular Hemoglobin Concent 34g/dL (31-37) Red Cell Distribution Width 13.5% (11.5-14.5) Platelet Count 415x10^3/uL (140-400) Neutrophils (%) (Auto) 60% (31-73) Lymphocytes (%) (Auto) 30% (24-48) Monocytes (%) (Auto) 6% (0-9) Eosinophils (%) (Auto) 5% (0-3) Basophils (%) (Auto) 0% (0-3) Neutrophils # (Auto) 6.4x10^3uL (1.8-7.7) Lymphocytes # (Auto) 3.2x10^3/uL (1.0-4.8) Monocytes # (Auto) 0.6x10^3/uL (0.0-1.1) Eosinophils # (Auto) 0.5x10^3/uL (0.0-0.7) Basophils # (Auto) 0.0x10^3/uL (0.0-0.2) Segmented Neutrophils % 59% (35-66) Band Neutrophils % 4% (0-9) Lymphocytes % 27% (24-48) Monocytes % 3% (0-10) Eosinophils % 7% (0-5) Platelet Estimate Increased (ADEQUATE) Polychromasia Slight Sodium Level 137mmol/L (136-145) Potassium Level 3.9mmol/L (3.5-5.1) Chloride Level 100mmol/L (98-107) Carbon Dioxide Level 29mmol/L (21-32) Anion Gap 8 (6-14) Blood Urea Nitrogen 17mg/dL (7-20) Creatinine 0.9mg/dL (0.6-1.0) Estimated GFR (Cockcroft-Gault) 65.8 Glucose Level 98mg/dL (70-99) Calcium Level 8.6mg/dL (8.5-10.1) Laboratory Tests Test 09/19/16 12:20 White Blood Count 10.7x10^3/uL (4.0-11.0) Red Blood Count 3.13x10^6/uL (3.50-5.40) Hemoglobin 9.8g/dL (12.0-15.5) Hematocrit 29.3% (36.0-47.0) Mean Corpuscular Volume 94fL (79-100) Mean Corpuscular Hemoglobin 31pg (25-35) Mean Corpuscular Hemoglobin Concent 34g/dL (31-37) Red Cell Distribution Width 13.5% (11.5-14.5) Platelet Count 415x10^3/uL (140-400) Neutrophils (%) (Auto) 60% (31-73) Lymphocytes (%) (Auto) 30% (24-48) Monocytes (%) (Auto) 6% (0-9) Eosinophils (%) (Auto) 5% (0-3) Basophils (%) (Auto) 0% (0-3) Neutrophils # (Auto) 6.4x10^3uL (1.8-7.7) Lymphocytes # (Auto) 3.2x10^3/uL (1.0-4.8) Monocytes # (Auto) 0.6x10^3/uL (0.0-1.1) Eosinophils # (Auto) 0.5x10^3/uL (0.0-0.7) Basophils # (Auto) 0.0x10^3/uL (0.0-0.2) Segmented Neutrophils % 59% (35-66) Band Neutrophils % 4% (0-9) Lymphocytes % 27% (24-48) Monocytes % 3% (0-10) Eosinophils % 7% (0-5) Platelet Estimate Increased (ADEQUATE) Polychromasia Slight Sodium Level 137mmol/L (136-145) Potassium Level 3.9mmol/L (3.5-5.1) Chloride Level 100mmol/L (98-107) Carbon Dioxide Level 29mmol/L (21-32) Anion Gap 8 (6-14) Blood Urea Nitrogen 17mg/dL (7-20) Creatinine 0.9mg/dL (0.6-1.0) Estimated GFR (Cockcroft-Gault) 65.8 Glucose Level 98mg/dL (70-99) Calcium Level 8.6mg/dL (8.5-10.1) Microbiology 09/14/16 Urine Culture - Final, Complete 09/14/16 Urine Culture Result 1 (ROBIN) - Final, Complete 09/14/16 Antimicrobic Susceptibility - Final, Complete Medications Current Medications Hydromorphone HCl (Dilaudid) 1 mg 1X ONCE IV Last administered on 09/12/16t 20 :36; Start 09/12/16 at 20:15; Stop 09/12/16 at 20:16; Status DC Diazepam (Valium) 5 mg 1X ONCE IV Last administered on 09/12/16t 20:37; Start 09/12/16 at 20:15; Stop 09/12/16 at 20:16; Status DC Ondansetron HCl (Zofran) 4 mg PRN Q8HRS PRN IV NAUSEA/VOMITING; Start 09/12/16 at 21:00; Stop 09/13/16 at 20:59; Status DC Morphine Sulfate 4 mg 4 mg PRN Q2HR PRN IV PAIN Last administered on 09/13/16 20:42; Start 09/12/16 at 21:00; Stop 09/13/16 at 20:59; Status DC Sodium Chloride (Iv Sodium Chloride 0.9% 1000ml Bag) 1,000 ml @ 100 mls/hr Q10H IV Last administered on 09/14/16 00:39; Start 09/12/16 at 20:55; Stop at 20:54; Status DC Diazepam (Valium) 5 mg PRN TID PRN PO MUSCLE SPASMS Last administered on 08:18; Start 09/12/16 at 23:00 Nicotine (Nicoderm Cq 21mg) 1 patch DAILY TD Last administered on 09/20/16 08: 18; Start 09/13/16 at 09:00 Nicotine Polacrilex (Nicorette Gum) 1 each PRN Q1HR PRN BC SMOKING CESSATION Last administered on 09/17/16 11:38; Start 09/12/16 at 23:00 Docusate Sodium (Colace) 100 mg BID PO Last administered on 09/20/16 08:18; Start 09/13/16 at 10:00 Oxycodone/ Acetaminophen (Percocet 7.5/ 325) 2 tab PRN Q4HRS PRN PO PAIN Last administered on 09/14/16 12:17; Start 09/13/16 at 10:00; Stop 09/14/16 at 15:00 ; Status DC Non-Formulary Medication 2 puff Q4HRS INH FOR ASTHMA; Start 09/13/16 at 12:00; Status UNV Oxycodone/ Acetaminophen (Percocet 7.5/ 325) 1 tab PRN Q4HRS PRN PO PAIN; Start 09/13/16 at 10:00; Stop 09/14/16 at 15:00; Status DC Dexamethasone Sodium Phosphate (Decadron) 4 mg Q6HRS IV ; Start 09/13/16 at 12: 00; Stop 09/13/16 at 12:00; Status DC Albuterol Sulfate (Ventolin Neb Soln) 2.5 mg Q4HRS NEB Last administered on 09/15 06:47; Start 09/13/16 at 12:00; Stop 09/15/16 at 08:10; Status DC Dexamethasone Sodium Phosphate (Decadron) 4 mg Q6HRS IV Last administered on 13:56; Start 09/13/16 at 10:00; Stop 09/16/16 at 17:51; Status DC Gadobutrol (Gadavist) 7.5 mmol 1X ONCE IV Last administered on 09/13/16 16:00 ; Start 09/13/16 at 15:45; Stop 09/13/16 at 15:46; Status DC Morphine Sulfate 4 mg PRN Q2HR PRN IV PAIN Last administered on 09/16/16 13:57 ; Start 09/14/16 at 15:00; Stop 09/16/16 at 19:16; Status DC Oxycodone/ Acetaminophen (Percocet 10/325) 1 tab PRN Q4HRS PRN PO PAIN Last administered on 09/16/16 18:03; Start 09/14/16 at 15:00; Stop 09/19/16 at 11:51; Status DC Oxycodone/ Acetaminophen 2 tab 2 tab PRN Q4HRS PRN PO PAIN Last administered on 09/19/16 08:58; Start 09/14/16 at 15:15; Stop 09/19/16 at 11:51; Status DC Potassium Chloride/Dextrose/ Sod Cl (KCl 20 Meq In D5W-1/2 NS) 1,000 ml @ 75 mls/hr [id number] IV Last administered on 09/18/16 05:30; Start 09/14/16 at 20:15 ; Stop 09/18/16 at 15:14; Status DC Albuterol Sulfate (Ventolin Neb Soln) 2.5 mg QID NEB Last administered on 16:33; Start 09/15/16 at 13:00 Iohexol (Omnipaque 180 Mg/ml) 20 ml 1X ONCE IJ Last administered on 09/15/16 14:24; Start 09/15/16 at 08:45; Stop 09/15/16 at 08:46; Status DC Info 1 each 1 each PRN DAILY PRN MC SEE COMMENTS; Start 09/15/16 at 08:45; Stop 09/17/16 at 08:44; Status DC Cefazolin Sodium/ Sodium Chloride (Ancef/Iv Sodium Chloride 0.9% 100ml) 100 ml @ 200 mls/hr 1X PREOP IV ; Start 09/16/16 at 08:30; Stop 09/18/16 at 15:29; Status DC Ondansetron HCl (Zofran) 4 mg PRN Q6HRS PRN IV Nausea; Start 09/16/16 at 07:00; Stop 09/17/16 at 06:59; Status DC Morphine Sulfate 1 mg 1 mg PRN Q10MIN PRN IV SEVERE PAIN; Start 09/16/16 at 07: 00; Stop 09/16/16 at 20:04; Status DC Lactated Ringer's (Iv Lactated Ringers) 1,000 ml @ 0 mls/hr Q0M IV Last administered on 09/16/16 08:13; Start 09/16/16 at 07:00; Stop 09/16/16 at 18:59; Status DC Lidocaine HCl 2 ml 1X PRN PRN ID IV START; Start 09/16/16 at 07:00; Stop at 06:59; Status DC Hydromorphone HCl (Dilaudid) 0.5 mg PRN Q10MIN PRN IV SEVERE PAIN, Second choice; Start 09/16/16 at 07:00; Stop 09/16/16 at 20:04; Status DC Prochlorperazine Edisylate 5 mg 5 mg PACU PRN PRN IV NAUSEA; Start 09/16/16 at 07:00; Stop 09/17/16 at 06:59; Status DC Bacitracin/Sodium Chloride (Iv Sodium Chloride 0.9% 1000ml Bag) 1,000 ml @ 1, 000 mls/hr 1X PERIOP ONCE IRR ; Start 09/16/16 at 06:00; Stop 09/16/16 at 06:59; Status DC Bisacodyl (Dulcolax Supp) 10 mg PRN DAILY PRN MD CONSTIPATION Last administered on 09/15/16 21:11; Start 09/15/16 at 20:15 Polyethylene Glycol (miraLAX PACKET) 17 gm PRN BID PRN PO CONSTIPATION Last administered on 09/20/16 08:18; Start 09/15/16 at 20:15 Bupivacaine HCl/ Epinephrine Bitart (Sensorcain-Mpf Epi 0.5%-1:148384) 30 ml STK -MED ONCE .ROUTE Last administered on 09/16/16 09:47; Start 09/16/16 at 07:26; Stop 09/16/16 at 07:27; Status DC Gelatin (Gelfoam Size 100) 1 each STK-MED ONCE .ROUTE Last administered on 09/16 09:47; Start 09/16/16 at 07:26; Stop 09/16/16 at 07:27; Status DC Ketorolac Tromethamine (Toradol For Or Only) 60 mg STK-MED ONCE .ROUTE Last administered on 09/16/16 09:47; Start 09/16/16 at 07:27; Stop 09/16/16 at 07:28; Status DC Thrombin 12020 unit 20,000 unit STK-MED ONCE TP Last administered on 09/16/16 09:47; Start 09/16/16 at 07:27; Stop 09/16/16 at 07:28; Status DC Propofol (Diprivan) 0 ml @ As Directed STK-MED ONCE IV ; Start 09/16/16 at 07:37 ; Stop 09/16/16 at 07:38; Status DC Lidocaine HCl 100 mg STK-MED ONCE .ROUTE ; Start 09/16/16 at 07:37; Stop 09/16/16 at 07:38; Status DC Dexamethasone Sodium Phosphate (Decadron) 20 mg STK-MED ONCE .ROUTE ; Start 09/16 at 07:39; Stop 09/16/16 at 07:40; Status DC Ondansetron HCl (Zofran) 4 mg STK-MED ONCE .ROUTE ; Start 09/16/16 at 07:39; Stop 09/16/16 at 07:40; Status DC Rocuronium [place] (Zemuron) 50 mg STK-MED ONCE .ROUTE ; Start 09/16/16 at 07:39 ; Stop 09/16/16 at 07:40; Status DC Fentanyl Citrate (Fentanyl 2ml Vial) 100 mcg STK-MED ONCE .ROUTE ; Start at 07:39; Stop 09/16/16 at 07:40; Status DC Remifentanil HCl (Ultiva) 2 mg STK-MED ONCE IV ; Start 09/16/16 at 07:40; Stop at 07:41; Status DC Remifentanil HCl (Ultiva) 2 mg STK-MED ONCE IV ; Start 09/16/16 at 07:40; Stop at 07:41; Status DC Dexamethasone Sodium Phosphate (Decadron) 20 mg STK-MED ONCE .ROUTE ; Start 09/16 at 07:59; Stop 09/16/16 at 08:00; Status DC Ondansetron HCl 4 mg 4 mg STK-MED ONCE .ROUTE ; Start 09/16/16 at 07:59; Stop 09/16/16 at 08:00; Status DC Propofol 50 ml @ As Directed STK-MED ONCE IV ; Start 09/16/16 at 07:59; Stop 09/16 at 08:00; Status DC Propofol (Diprivan) 20 ml @ As Directed STK-MED ONCE IV ; Start 09/16/16 at 07:59 ; Stop 09/16/16 at 08:00; Status DC Lidocaine HCl 100 mg STK-MED ONCE .ROUTE ; Start 09/16/16 at 07:59; Stop 09/16/16 at 08:00; Status DC Phenylephrine HCl (Boin-Synephrine Inj) 10 mg STK-MED ONCE .ROUTE ; Start at 07:59; Stop 09/16/16 at 08:00; Status DC Midazolam HCl (Versed) 2 mg STK-MED ONCE .ROUTE ; Start 09/16/16 at 07:59; Stop 09/16/16 at 08:00; Status DC Remifentanil HCl (Ultiva) 2 mg STK-MED ONCE IV ; Start 09/16/16 at 08:00; Stop at 08:01; Status DC Multi-Ingred Cream/Lotion/Oil/ Oint 7 yehuda 7 yehuda STK-MED ONCE .ROUTE ; Start 09/16 at 08:12; Stop 09/16/16 at 08:13; Status DC Cefazolin Sodium/ Dextrose (Ancef 2gm Premix) 50 ml @ As Directed STK-MED ONCE IV ; Start 09/16/16 at 08:49; Stop 09/16/16 at 08:50; Status DC Desflurane 60 ml 60 ml STK-MED ONCE IH ; Start 09/16/16 at 09:29; Stop 09/16/16 at 09:30; Status DC Cefazolin Sodium/ Dextrose 50 ml @ 100 mls/hr 1X ONCE IV Last administered on 09/16/16 09:38; Start 09/16/16 at 10:30; Stop 09/16/16 at 10:59; Status DC Propofol (Diprivan) 50 ml @ As Directed STK-MED ONCE IV ; Start 09/16/16 at 10:22 ; Stop 09/16/16 at 10:23; Status DC Fentanyl Citrate (Fentanyl 2ml Vial) 25 mcg PRN Q5MIN PRN IV Acute Pain; Start 09/16/16 at 12:00; Stop 09/16/16 at 20:04; Status DC Fentanyl Citrate (Fentanyl 2ml Vial) 50 mcg PRN Q5MIN PRN IV Acute Pain Last administered on 09/16/16 12:56; Start 09/16/16 at 12:00; Stop 09/16/16 at 20:04; Status DC Fentanyl Citrate 100 mcg 100 mcg STK-MED ONCE .ROUTE ; Start 09/16/16 at 12:00; Stop 09/16/16 at 12:01; Status DC Morphine Sulfate (Morphine 30 Mg/ 30 ml IMPORT/EXPORT AGENT) 30 ml @ 0 mls/hr CONT PRN PRN IV PROTOCOL; Start 09/16/16 at 14:45; Stop 09/16/16 at 20:04; Status DC Dexamethasone Sodium Phosphate (Decadron) 4 mg Q6H IV ; Start 09/16/16 at 20:00; Stop 09/16/16 at 20:00; Status DC Fentanyl Citrate 50 mcg 50 mcg PRN Q1HR PRN IV PAIN Last administered on 23:41; Start 09/16/16 at 20:00 Sodium Chloride (Iv Sodium Chloride 0.9% 1000ml Bag) 1,000 ml @ 100 mls/hr Q10H IV Last administered on 09/19/16 11:15; Start 09/19/16 at 11:15 Oxycodone HCl (Roxicodone) 10 mg PRN Q4HRS PRN PO PAIN Last administered on 09/19 19:52; Start 09/19/16 at 11:45 Oxycodone HCl (Roxicodone) 20 mg PRN Q4HRS PRN PO PAIN Last administered on 09/20 08:19; Start 09/19/16 at 11:45 Multi-Ingredient Ointment (Analgesic [place]) 1 yehuda PRN QID PRN TP MUSCLE PAIN; Start 09/19/16 at 22:30 Active Scripts Active Cyclobenzaprine Hcl 10 Mg Tablet 10 Mg PO PRN TID PRN 60 Days Oxycodon-Acetaminophen 7.5-325 (Oxycodone Hcl/Acetaminophen) 1 Each Tablet 2 Tab PO PRN Q4HRS PRN 60 Days Colace (Docusate Sodium) 100 Mg Capsule 100 Mg PO BID 60 Days Reported Percocet 10-325 Mg Tablet (Oxycodone/Acetaminophen) 1 Each Tablet 1 Tab PO QID PRN Percocet 10-325 Mg Tablet (Oxycodone/Acetaminophen) 1 Each Tablet 1 Tab PO QID PRN Valium (Diazepam) 5 Mg Tablet 5 Mg PO TID PRN Ventolin Hfa Inhaler (Albuterol Sulfate) 18 Gm Hfa.aer.ad 2 Puff INH Q4HRS Not used w hile in hosp. May resume at home as needed as directed. Vitals/I & O Vital Sign - Last 24 Hours 09/19/16 09/19/16 09/19/16 09/19/16 11:00 11:30 14:10 15:00 Temp 98.9 98.1 98.9 98.1 Pulse 91 95 Resp 18 19 18 B/P 71/45 94/58 Pulse Ox 94 94 97 O2 Delivery Room Air Room Air Room Air Room Air O2 Flow Rate 10.0 09/19/16 09/19/16 09/19/16 09/19/16 15:10 16:44 18:18 19:18 Resp 20 Pulse Ox 98 98 98 O2 Delivery Room Air Room Air O2 Flow Rate 10.0 10.0 09/19/16 09/19/16 09/19/16 09/19/16 19:45 19:52 20:17 20:52 Temp 99.8 99.8 Pulse 107 Resp 18 20 20 B/P 93/54 Pulse Ox 99 99 O2 Delivery Room Air Room Air Room Air Room Air 09/19/16 09/19/16 09/19/16 09/20/16 22:15 23:00 23:41 00:11 Resp 20 20 20 20 Pulse Ox 99 O2 Delivery Room Air Room Air Room Air Room Air 3/6/17 09/20/16 09/20/16 09/20/16 03:13 03:14 04:14 07:00 Temp 98.8 97.9 98.8 97.9 Pulse 96 84 Resp 18 20 20 18 B/P 89/49 91/68 Pulse Ox 93 93 98 O2 Delivery Room Air Room Air Room Air 09/20/16 09/20/16 08:19 09:25 Pulse Ox 93 93 O2 Delivery Room Air Room Air Intake and Output 09/19/16 09/19/16 09/20/16 15:00 23:00 07:00 Intake Total 250 ml Balance 250 ml NAVEEN DELCID APRN Sep 20, 2016 11:02
[2016-09-20 11:12] LABS: BILIRUBIN,URINE NEGATIVE (NEG); GLUCOSE,URINE NEGATIVE (NEG); NITRITE,URINE POSITIVE (NEG); PH,URINE 6.5; PROTEIN,URINE NEGATIVE (NEG-TRACE)
[2016-09-20 11:25] LABS: BACTERIA,URINE MANY /HPF (0-FEW); RBC,URINE OCC /HPF (0-2); SQUAMOUS EPITHELIAL CELL,UR FEW /LPF
[2016-09-20 15:00] VITALS: BP 89/43
[2016-09-20] MEDS ORDERED: ALBUTEROL SULFATE 2.5 MG/3 ML NEBU. NEB PRN (18:45)
[2016-09-20 19:00] VITALS: BP 93/64
[2016-09-20] MEDS ORDERED: LEVOFLOXACIN 500 MG TABLET PO ONE (19:45)
[2016-09-20] MEDS ORDERED: CEFTRIAXONE SODIUM 1 GM in IV NORMAL SALINE 50ML 50 ML IV SCH (20:00)
[2016-09-20 23:00] VITALS: BP 162/88
--- NOTE | 2016-09-20 23:31 | OP ---
DATE OF SURGERY: 09/16/2016 PREOPERATIVE DIAGNOSIS: Lumbar radiculopathy post instrumented lumbar fusion at L4-L5. POSTOPERATIVE DIAGNOSIS: Lumbar radiculopathy post instrumented lumbar fusion at L4-L5. OPERATION PERFORMED: 1. Transfacet exposure, left, L4-L5. 2. Lumbar microdiscectomy, L4-L5. The operation was done with EMG monitoring, fluoroscopy, microscopic dissection. SURGEON: Wilfred Nicholson M.D. ATMOSPHERIC PHYSICS PROFESSOR: AMILCAR Diaz, assisted with the surgery. She assisted with the exposure, the decompression, discectomy as well as the closure. OPERATIVE INDICATIONS: The patient is a very pleasant 51-year-old who underwent an instrumented lumbar fusion recently at L4-L5 with placement of interbody fusion cage. Prior to surgery, she had problems with significant right leg pain. Following surgery, she noted some pain in her left anterior thigh. Following discharge from the hospital, she developed much more significant pain in the left anterior thigh. She was readmitted for pain control, given steroids which temporarily held, but then were not completely effective in eliminating her pain. She was imaged and was seen to have an element of disc bulging combined with some neural foraminal narrowing at L4-L5. I recommended surgery to be sure that the nerve roots were quite free. She understood. She wished to go ahead, and she understood the risks involved. DESCRIPTION OF PROCEDURE: Following general endotracheal anesthesia, the patient was positioned prone on the Seth table. Her lumbar region was prepped and draped in the standard fashion. SONJA hose and AV impulse boots were applied for DVT prophylaxis. Microscope was draped. Fluoroscopy was draped and brought into field. Monitoring was established. Ancef 2 grams was given less than 1 hour prior to initiation of the surgery. Using fluoroscopic guidance, her previous incision was reopened and self-retaining retractors were placed. I visualized her previously placed hardware and the lamina was well seen. I loosened her construct and brought in the microscope and the remainder of surgery was done with the microscope using microscopic technique, and the previous surgery with her right leg pain, laminectomy was performed and a transfacet exposure was also performed on the right side, fully decompressed that side. On the left side, although the bone work continued over to the left side of the canal. The facet had been preserved. So, at this point, I trimmed laterally with the 2.5 and 4 mm Kerrison's as well as the high-speed air drill and exposed Kambin's triangle on the left. The L4 root was visualized as it moved laterally. I did incise the disc on the left and performed a discectomy to be sure that there was no significant lateral foraminal narrowing. I also at this point distracted very slightly with the hardware on the left side, I did work medially. There was some central disc bulging, which was calcified, and centrally, the discectomy was limited because of that. I went to the right side and again incised the annulus and again worked medially. Again, there was calcified disc medially, which limited this medial discectomy, but I did work laterally and assured myself that laterally, there was no significant foraminal narrowing. On both sides, I was able to easily pass a blunt hook out laterally. I did sequentially re-torque the hardware. I felt that any foraminal narrowing had been completely dealt with. There were no difficulties with the surgery. I irrigated copiously with antibiotic solution. I then closed the wound in layers with absorbable suture and the skin was closed with 4-0 subcuticular stitch. The patient awakened uneventfully, taken to recovery room in excellent condition. I was quite pleased with the surgery. WILFRED NICHOLSON MD DR: CALLIE/lynette JOB#: [id number] / [id number] LANETTE
[2016-09-21 03:00] VITALS: BP 84/45
[2016-09-21] MEDS: OXYCODONE IR 5 MG TABLET. PO PRN ×2 (04:12→08:19)
[2016-09-21 07:00] VITALS: BP 87/47
[2016-09-21] MEDS: DOCUSATE SODIUM 100 MG CAPSULE PO SCH (08:18)
[2016-09-21] MEDS: NICOTINE 21MG PATCH. TD SCH (08:19)
--- NOTE | 2016-09-21 08:22 | PDOC ---
Provider Note Provider Note [id number] DEIDRE RUSS MD Sep 21, 2016 08:22
--- NOTE | 2016-09-22 01:08 | CONS ---
DATE OF CONSULTATION: 09/21/2016 CHIEF COMPLAINT: Urinary tract infection. HISTORY OF PRESENT ILLNESS: A 51-year-old white female has been here for some ongoing low back pain and had some further lumbar surgery and was found to have a urinary tract infection and I was asked to see regards same. She was given a dose of Levaquin ordered by her last ____ as IV was out and the urine culture today shows E. coli sensitive to all antibiotics tested. She is having only mild urinary symptoms, no other complaints. PAST MEDICAL HISTORY: Well documented in the old record. ALLERGIES: No drug allergies. MEDICATIONS: She is not on any anticoagulants. SOCIAL HISTORY: , lives at home. Nonsmoker, nondrinker. FAMILY HISTORY: Unremarkable. REVIEW OF SYSTEMS: No other known problems except for the ongoing back problems. OBJECTIVE: ENT: All within normal limits. NECK: No masses, nodes or bruits. LUNGS: Clear. CARDIOVASCULAR: Regular rate. No murmur. ABDOMEN: Soft, benign and nontender. BACK: CVA, is nontender. EXTREMITIES: Good pedal and radial pulses. NEUROLOGIC: Physiologic. ASSESSMENT: Urinary tract infections, status post lumbar surgery. PLAN: We will discharge with a prescription for Cipro 250 mg twice a day for 3 more days, which should cover. There is no evidence of urinary retention and neurogenic bladder at this time and further evaluation will be with her primary doctor ____. DEIDRE RUSS MD DR: FREDERICK/lynette JOB#: [id number] / [id number]
== END 2016-09-21 09:55 | disposition home or self-care (01) | DRG 519 ==
LOC: ER 19:39 → 4 NORTH 20:30
PROVIDERS: ADMIT Neurological Surgery; ATTEND Neurological Surgery
PROC: 4A1134G Monitoring of Peripheral Nervous Electrical Activity, Intraoperative, Percutaneous Approach (ICD-10-PCS; 2016-09-16)
PROC: 0SB20ZZ Excision of Lumbar Vertebral Disc, Open Approach (ICD-10-PCS; principal; 2016-09-16 08:30)
DX: M54.16 Radiculopathy, lumbar region (principal); N39.0 Urinary tract infection, site not specified; G89.18 Other acute postprocedural pain; Z83.3 Family history of diabetes mellitus; Z90.710 Acquired absence of both cervix and uterus; Z98.1 Arthrodesis status; Z91.040 Latex allergy status; Z82.49 Family history of ischemic heart disease and other diseases of the circulatory system
CPT/HCPCS: 36415; 72100; 72131; 72132; 72158; 72265; 76000; 80048; 81001; 85007; 85014; 85018; 85027; 87086; 87186; 88304; 88311; 94250; 94640; 94760; 96374; 96375; J0690; J1100; J1170; J1885; J2250; J2270; J2405; J2704; J3010; J3360; J3490; J7030; J7120; 97110; 97116; 99285-25; A9585

== ENCOUNTER → 2016-12-02 | Outpatient (CLI) | payer MEDICARE, MEDICAID ==
[~2016-12-02] MED LIST changes: +DIAZ5TAB PO; +OXYC-250 PO
--- NOTE | 2016-12-02 16:10 | KCIC ---
PROCEDURE CT lumbar spine 12/02/2016 HISTORY Low back pain. History of recent lumbar fusion. TECHNIQUE Unenhanced contiguous, 0.6 millimeter axial sections were obtained through the lumbar spine. 3 millimeter reconstructed sagittal, axial and coronal images were obtained. One or more of the following individualized dose reduction techniques were utilized for this study: 1. Automated exposure control. 2. Adjustment of the mA and/or kV according to patient size. 3. Use of iterative reconstruction technique. FINDINGS Comparison is made to a CT lumbar myelogram dated 09/15/2016. Sagittal and coronal reconstructed images demonstrate very mild S-shaped curvature of the thoracolumbar spine. Hypoplastic ribs are seen at T12. L5 is sacralized. The patient is status post laminectomy and fusion using pedicle screws and stabilizing rods along with bone graft material at L3-4. Mild to moderate anterolisthesis of L3 in relation to L4 is noted. Degenerative changes consisting of vertebral endplate sclerosis and minimal to mild anterior vertebral body osteophyte formation are seen involving the lower thoracic and throughout the lumbar disc spaces. Disc space narrowing is seen at L4-5 and L5-S1. Atherosclerotic calcification of the abdominal aorta and its branches is noted. At the L1-2 disc space there is a mild generalized disc bulge. Degenerative changes are seen involving the facet joints bilaterally. There is mild ligamentum flavum hypertrophy bilaterally. These findings do not result in significant central spinal canal or neural foraminal stenosis. At the L2-3 disc space there is a moderate generalized disc bulge. Degenerative changes are seen involving the facet joints bilaterally. There is mild to moderate ligamentum flavum hypertrophy. These findings when combined result in mild to moderate left greater than right central spinal canal stenosis. No neural foraminal stenosis is seen. At the L 3- 4 disc space there is mild generalized disc bulge. Degenerative changes are seen involving the facet joints bilaterally. These findings when combined with the anterolisthesis result in moderate to severe bilateral neural foraminal stenosis. No significant central spinal canal stenosis is seen. At the L4-5 disc space there is a mild generalized disc bulge. Degenerative changes are seen involving the facet joints, left greater than right. These findings do not result in significant central spinal canal or neural foraminal stenosis. At the L5-S1 disc space there is minimal generalized disc bulge. Degenerative changes are seen involving the facet joints bilaterally. These findings do not result in significant central spinal canal or neural foraminal stenosis. IMPRESSION 1. Status post laminectomy and fusion at L3-4. 2. The changes of degenerative disc disease are seen involving the lumbar spine. These findings result in mild to moderate left greater than right central spinal canal stenosis at L2-3. Moderate to severe bilateral neural foraminal stenosis is seen at L3-4. Electronically signed by: Den Rojas MD (December 02, 2016 16:09:47)
== END | disposition home or self-care (01) ==
LOC: KCIC CT 13:42
PROVIDERS: ATTEND Neurological Surgery
DX: M43.26 Fusion of spine, lumbar region (principal)
CPT/HCPCS: 72131

== ENCOUNTER → 2017-11-16 | Outpatient (CLI) | payer MEDICARE, MEDICAID | END | disposition home or self-care (01) | LOC: RAD 15:41 | DX: M16.11 Unilateral primary osteoarthritis, right hip (principal) | CPT/HCPCS: 73502 ==

== ENCOUNTER → 2017-12-06 | Outpatient (CLI) | payer MEDICARE, MEDICAID ==
[2017-12-06] MEDS: LIDOCAINE 1% Multi-Dose 20 ML VIAL. ID (15:30)
[2017-12-06] MEDS: BUPIVACAINE 0.5% 50 ML VIAL. IJ (15:30)
[2017-12-06] MEDS: methylPREDNISolone ACETATE 80 MG/ML VIAL. INT ART (15:30)
[2017-12-06] MEDS: IOHEXOL 300 MG/ML 10ML VIAL. INT ART (15:30)
== END | disposition home or self-care (01) ==
LOC: KCIC 15:12
DX: M25.551 Pain in right hip (principal); G89.29 Other chronic pain; Z91.040 Latex allergy status; J44.9 Chronic obstructive pulmonary disease, unspecified; G47.30 Sleep apnea, unspecified; Z87.01 Personal history of pneumonia (recurrent); E66.9 Obesity, unspecified; K21.9 Gastro-esophageal reflux disease without esophagitis; Z98.890 Other specified postprocedural states; Z90.710 Acquired absence of both cervix and uterus; Z90.79 Acquired absence of other genital organ(s); Z90.721 Acquired absence of ovaries, unilateral; Z87.440 Personal history of urinary (tract) infections; F32.9 Major depressive disorder, single episode, unspecified; F17.200 Nicotine dependence, unspecified, uncomplicated; Z85.820 Personal history of malignant melanoma of skin; Z91.048 Other nonmedicinal substance allergy status
CPT/HCPCS: 20610; 77002; J1040; J3490; Q9967

== ENCOUNTER → 2018-09-18 | Outpatient (CLI) | payer MEDICARE, MEDICAID ==
[~2018-09-18] MED LIST changes: +BC POWDER PO; +DOCU-109 PO; -DOCU-27 PO; -HYDR-2672 PO; +HYDR-2769 PO; +JET ALERT PO; +MORP15TA PO; -OXYC-250 PO; -OXYC-323 PO; +OXYC1TAB15 PO; +OXYC1TAB22 PO
[2018-09-18 09:19] LABS: BASO # 0.1 x10^3/uL (0.0-0.2); BASO % 1 % (0-3); EOS # 0.6 x10^3/uL (0.0-0.7); EOS % 8 % (0-3); HEMATOCRIT 40.8 % (36.0-47.0); HEMOGLOBIN 13.7 g/dL (12.0-15.5); LYMPH # 1.9 x10^3/uL (1.0-4.8); LYMPH % 27 % (24-48); MEAN CORPUSCULAR HEMOGLOBIN 31 pg (25-35); MEAN CORPUSCULAR HGB CONC 34 g/dL (31-37); MEAN CORPUSCULAR VOLUME 91 fL (79-100); MONO # 0.5 x10^3/uL (0.0-1.1); MONO % 7 % (0-9); NEUT % 57 % (31-73); PLATELET COUNT 374 x10^3/uL (140-400); RED BLOOD COUNT 4.47 x10^6/uL (3.50-5.40); WHITE BLOOD COUNT 6.9 x10^3/uL (4.0-11.0)
[2018-09-18 09:29] LABS: PROTHROMBIN TIME PATIENT 12.9 SEC (11.7-14.0)
[2018-09-18 09:31] LABS: ALBUMIN 3.4 g/dL (3.4-5.0); CALCIUM 9.3 mg/dL (8.5-10.1); CREATININE 0.9 mg/dL (0.6-1.0); GFR 65.2; POTASSIUM 3.8 mmol/L (3.5-5.1)
[2018-09-18 11:33] LABS: BILIRUBIN,URINE NEGATIVE (NEG); CLARITY,URINE CLEAR; COLOR,URINE YELLOW; NITRITE,URINE POSITIVE (NEG); PROTEIN,URINE NEGATIVE (NEG-TRACE)
[2018-09-18 11:54] LABS: BACTERIA,URINE MANY /HPF (0-FEW); RBC,URINE OCC /HPF (0-2); SQUAMOUS EPITHELIAL CELL,UR MOD /LPF
--- NOTE | 2018-09-18 13:09 | EKG ---
[facility] [address] [place] [address] Test Date: 2018-09-18 Test Time: 12:54:48 Pat Name: STEVEN RIGGS Department: Room: Gender: F Grain Inspector: AT : 1965 Requested By: JAMAAL KAHN Order Number: [id number] Reading MD: Wayne Chao MD Measurements Intervals Kyle Rate: 90 P: 42 CT: 142 QRS: 12 QRSD: 82 T: 20 QT: 358 QTc: 442 Interpretive Statements SINUS RHYTHM Electronically Signed On 09-19-2018 7:03:33 PIN INSERTER by Wayne Chao MD
--- NOTE | 2018-09-18 13:43 | RAD ---
EXAM: Chest, 2 views. HISTORY: Preoperative evaluation. Arthroplasty. COMPARISON: None. FINDINGS: 2 views of the chest are obtained. There is no infiltrate, pleural effusion or pneumothorax. The heart is normal in size. There are peripherally calcified implanted breast prostheses. There is lumbar spinal fusion instrumentation. There is thoracic scoliosis. IMPRESSION: No acute pulmonary finding. Electronically signed by: Milana Pike MD (09/18/2018 1:40 PM) [place] [id number]
== END | disposition home or self-care (01) ==
LOC: SURGPAT 12:45
PROVIDERS: ATTEND Orthopaedic Surgery Sports Medicine
DX: M16.11 Unilateral primary osteoarthritis, right hip (principal); I10 Essential (primary) hypertension
CPT/HCPCS: 36415; 71046; 80048; 81001; 82040; 85025; 85610; 85651; 85730; 87086; 87186; 87641; 93005

== ENCOUNTER → 2018-09-29 | Outpatient (CLI) | payer MEDICARE, MEDICAID ==
[2018-09-29 11:14] LABS: BILIRUBIN,URINE NEGATIVE (NEG); CLARITY,URINE CLEAR; COLOR,URINE YELLOW; NITRITE,URINE NEGATIVE (NEG); PROTEIN,URINE NEGATIVE (NEG-TRACE)
[2018-09-29 11:31] LABS: BACTERIA,URINE 0 /HPF (0-FEW); SQUAMOUS EPITHELIAL CELL,UR MOD /LPF
== END | disposition home or self-care (01) ==
LOC: LAB 09:59
PROVIDERS: ATTEND Orthopaedic Surgery Sports Medicine
DX: N39.0 Urinary tract infection, site not specified (principal)
CPT/HCPCS: 81001

== ENCOUNTER 2018-10-02 05:41 | Inpatient (IN) | payer MEDICARE, MEDICAID ==
[~2018-10-02] VITALS: Ht 167.6 cm; Wt 78.9 kg
[2018-10-02] VITALS (8 sets, daily range): BP systolic 94–131; BP diastolic 59–83
[2018-10-02] MEDS ORDERED: TRANEXAMIC ACID 1,000 MG in IV NS 50ML -- 1ST BAG INJ ONE (06:00)
[2018-10-02] MEDS ORDERED: HYDROcodone/APAP 7.5/325MG 1 TAB TABLET PO PRN (06:00)
[2018-10-02] MEDS ORDERED: MELOXICAM 7.5 MG TABLET PO PRN (06:00)
[2018-10-02] MEDS ORDERED: MORPHINE SULFATE 5 MG, KETOROLAC 30MG VIAL 30 MG, ROPIVacaine 0.5% PF 60 ML, EPINEPHrin... INT ART ONE ×5 (06:00)
[2018-10-02] MEDS ORDERED: fentaNYL PF VIAL 100 MCG/2 ML VIAL ONE ×3 (06:32→11:04)
[2018-10-02] MEDS ORDERED: SEVOFLURANE > 120 MINUTES. IH ONE ×2 (06:32→10:59)
[2018-10-02] MEDS ORDERED: PROPOFOL 20 ML IV ONE (06:32)
[2018-10-02] MEDS ORDERED: ROCURONIUM 50 MG/5 ML VIAL. ONE (06:32)
[2018-10-02] MEDS ORDERED: ONDANSETRON PF 4 MG/2 ML VIAL. ONE (06:33)
[2018-10-02] MEDS ORDERED: LIDOCAINE 2% PF 5 ML VIAL. ONE (06:33)
[2018-10-02] MEDS ORDERED: PHENYLEPHRINE 10 MG/ML VIAL. ONE (06:33)
[2018-10-02] MEDS ORDERED: DEXAMETHASONE SOD PHOS 20 MG/5 ML VIAL. ONE (06:36)
[2018-10-02] MEDS ORDERED: LIDOCAINE 1% PF 2 ML VIAL. ID PRN (07:00)
[2018-10-02] MEDS ORDERED: PROCHLORPERAZINE 10 MG/2 ML VIAL. IV PRN (07:00)
[2018-10-02] MEDS ORDERED: fentaNYL PF VIAL 100 MCG/2 ML VIAL IV PRN ×2 (07:00→07:15)
[2018-10-02] MEDS ORDERED: ONDANSETRON PF 4 MG/2 ML VIAL. IV PRN (07:00)
[2018-10-02] MEDS ORDERED: HYDROmorphone 2 MG/ML VIAL IV PRN (07:00)
[2018-10-02] MEDS: IV RINGERS,LACTATED 1000ML 1,000 ML IV SCH ×2 (07:08→09:52)
[2018-10-02] MEDS ORDERED: MIDAZOLAM HCL/PF 2 MG/2 ML VIAL. ONE (07:12)
[2018-10-02] MEDS ORDERED: METOCLOPRAMIDE HCL 10 MG/2 ML VIAL. IV PRN (07:15)
[2018-10-02] MEDS ORDERED: 0.9 % SODIUM CHLORIDE 10 ML DISP.SYRIN. IV PRN (07:15)
[2018-10-02] MEDS ORDERED: CALCIUM CARBONATE 500 MG TAB.CHEW PO PRN (07:15)
[2018-10-02] MEDS ORDERED: PROCHLORPERAZINE 5 MG TABLET. PO PRN (07:15)
[2018-10-02] MEDS ORDERED: diphenhydrAMINE 50 MG/ML VIAL IV PRN (07:15)
[2018-10-02] MEDS ORDERED: MORPHINE SULFATE 2 MG/ML VIAL. IV PRN (07:15)
[2018-10-02] MEDS ORDERED: ZOLPIDEM 5 MG TABLET. PO PRN (07:15)
[2018-10-02] MEDS ORDERED: DEXTROSE 50% 25 GM / 50ML DISP.SYRIN. IV PRN (07:15)
[2018-10-02] MEDS ORDERED: ALBUTEROL SULFATE 2.5 MG/3 ML NEBU. NEB PRN (07:30)
[2018-10-02 07:36] LABS: PROTHROMBIN TIME PATIENT 14.4 SEC (11.7-14.0)
[2018-10-02] MEDS ORDERED: GLYCOPYRROLATE 1 MG/5 ML VIAL. ONE ×2 (07:40→10:38)
[2018-10-02] MEDS ORDERED: TRANEXAMIC ACID 1,000 MG in IV NS 50ML -- 2ND BAG INJ ONE (08:00)
[2018-10-02] MEDS ORDERED: NEOSTIGMINE METHYLSULFATE 5 MG/5 ML SYRINGE. ONE ×2 (08:03→10:59)
[2018-10-02] MEDS ORDERED: SEVOFLURANE 61 TO 120 MINUTES. IH ONE (08:22)
--- NOTE | 2018-10-02 09:36 | PDOC4 ---
Operative Note Operative Note Date of procedure: 10/02/2018 Surgeon: Venkatesh Kahn Asst.: Osmar Wakefield, advanced practice registered nurse who was necessary to assist with manipulating the leg and holding retractors as well as wound closure for this procedure Preoperative diagnosis: Advanced right hip primary degenerative joint disease Postoperative diagnosis: Same Procedure performed: Right total hip arthroplasty Anesthesia: Gen. Findings: Advanced primary degenerative joint disease of right hip. Blood loss: 300mL Complications: nondisplaced intraoperative fracture at calcar, treated with cerclage cable Components inserted: Palacios and nephew 50 mm R3 acetabular shell with a 32 mm - 3 Oxinium femoral head. A 20 posteriorly directed elevated liner was used. Size 2 standard offset anthology femoral component was used. 2 mm cable was also inserted. Reason for procedure: Patient is a very pleasant individual with severe and progressive pain interfering with her activities of daily living and attributable to the above preoperative diagnosis. Clinical and radiographic examination were consistent with the above preoperative diagnosis and after discussion of the risks, benefits, and alternatives, taking into account her failure of conservative therapies, the patient elected to proceed with surgery. Description of procedure: Patient was greeted in the preoperative area by myself where the correct extremity was verified and marked. She was taken back to the operative suite and antibiotics were started as they were brought back. Once in the operative room, patient was transferred gently supine to the operating table and secured to the bed with all pressure points padded. Axillary roll was used. The down leg was padded at the fibular head and heel. Patient was secured the bed with our hip positioning devices. I then appreciated leg lengths in this position. After this, the operative extremity was prepped and draped in our usual sterile fashion including an I[place]an [place]. We then proceeded to conduct our standard preoperative timeout. I then palpated and marked surface anatomy and margarita a line from my standard posterolateral skin incision. Skin was incised with a scalpel and subcutaneous tissue was dissected down the level of fascia with electrocautery. Bleeders were cauterized as they were encountered. Quevedo elevator was used to sweep aside adherent subcutaneous tissue for later identification and repair of the fascia. Fascia was then incised in line with the skin incision and the gluteus nadeen was split bluntly in line with its fibers. After this, a lap was used to push bursal tissue posteriorly to identify the piriformis and quadratus, these were taken down, the piriformis was tagged for later repair. Our self-retaining retractor was in place. At this point, identified the hip capsule incised in a T -type incision, taking ends for later repair. The hip was dislocated. I then palpated and marked with electrocautery areas at the greater and lesser trochanters and center of the femoral head and I made measurements for length and offset. I then margarita a line on the neck about 1 cm proximal lesser trochanter and made my neck cut through this. The bony remnant was delivered from the operative field. We placed her acetabular retractors and inspected the acetabulum. I excised the soft tissues from the floor the acetabulum as well as the labrum. Osteophytes were taken down posteriorly. After this, we began reaming and reamed down until we encountered a punctate bleeding bony bed. The operative field and then thoroughly irrigated out. The cup was then impacted referencing kwethluk anatomy and the crossbar attachment. I had identified the transverse acetabular ligament. After this, I palpated for the posterior column and greater sciatic notch and referenced this to place a screw into the posterior column. The operative field was irrigated again and my polyethylene liner was then impacted in position and confirmed that it was fully seated on circumferential visualization. We then removed our acetabular retractors and used our proximal femoral elevator and repositioned the leg. I used the chay cutting osteotome followed by canal finding reamer followed by lateralizing reamer. We then began broaching and broached to the above size and trialed different head and necks, using our measurements as a guide as well. The above sizes gave the best range of motion and stability. While re-dislocating the hip during one set of trials, I heard a pop and inspected the broach which I felt changed position a little bit. I removed the broach, and inspected the calcar, I felt it was a possible nondisplaced fracture and I elected to place a cerclage cable securely around the proximal femur. I then began re-broaching with my number 2, with the cable in place, I then re-trialed the heads. I still felt that the above combination gave the best range of motion, stability and leg length. After this, the trial components were removed and the canal was thoroughly irrigated. I then impacted my femoral stem and position. We then re- trialed the head sizes and selected the above size. The hip was redislocated and the Crabtree taper region was washed and dried. The femoral head was then gently impacted in position and the acetabulum was inspected and irrigated to make sure was free of debris. After this, the hip was reduced. Excellent range of motion and stability were achieved. I was happy with the leg lengths. We then closed capsule with simple interrupted #2 Ethibond. Piriformis was reapproximated through drill holes. I then injected my periarticular mixture into the kalee-incisional soft tissues below. Fascia was closed was running #2 Quill suture. Inverted interrupted 2-0 Vicryl in a multilayered fashion was used for subcutaneous tissue and running 3-0 Monocryl for skin. Prior to wound closure, all counts correct 2. An intraoperative fracture occurred treated with cerclage cable as a complication. At the conclusion, the hip region was cleansed and dried and our incisional wound vacuum was applied. Patient tolerated surgery well. At the conclusion, they were laid supine and transferred gently supine to the hospital bed and taken to PACU in a stable and extubated condition. Postoperative plan is to admit the patient to the joint center for DVT and antibiotic prophylaxis as well as to begin the rehabilitation and receive likely IV pain medicine. VENKATESH KAHN II, MD Oct 02, 2018 09:36
[2018-10-02] MEDS: fentaNYL PF VIAL 100 MCG/2 ML VIAL IV PRN ×2 (09:52→10:33)
[2018-10-02] MEDS: MORPHINE SULFATE 2 MG/ML VIAL. IV PRN ×4 (10:16→11:11)
--- NOTE | 2018-10-02 10:18 | RAD ---
PELVIS Clinical Indication: POST OP RT HIP REPLACEMENT Comparison: AP pelvis, 09/01/2018. Findings: There is new right hip arthroplasty. On single view, alignment is anatomic. There is no acute fracture. Stable appearance of the left hip. DJD at the symphysis pubis. There is posterior fusion hardware in the lower lumbar spine, partially seen. Subchondral sclerosis of the sacroiliac joints redemonstrated. There is subcutaneous air and induration lateral to the right hip. IMPRESSION: Post right hip arthroplasty. No acute complication is identified radiographically. Electronically signed by: Bryn Winslow MD (10/02/2018 10:15 AM) [id number]
[2018-10-02] MEDS: IV NORMAL SALINE 1000ML BAG 1,000 ML IV SCH (10:56)
[2018-10-02] MEDS ORDERED: hydrALAZINE 20 MG/ML VIAL. ONE (11:07)
--- NOTE | 2018-10-02 11:49 | NUR ---
received from pacu; she will arouse to name. she is rating her pain "10" then falls asleep after answering question. she has good sensation, pulses and motion bilateral lower extremities. Her significant other Gilmar is at the bedside.
[2018-10-02] MEDS: ONDANSETRON ODT 4 MG TAB.RAPDIS. PO SCH ×2 (12:00→16:26)
[2018-10-02] MEDS: ONDANSETRON PF 4 MG/2 ML VIAL. IV SCH ×2 (13:16→17:24)
[2018-10-02] MEDS: FERROUS SULFATE 325 MG TABLET. PO SCH (15:54)
[2018-10-02] MEDS ORDERED: WARFARIN 7.5 MG TABLET. PO ONE (16:00)
[2018-10-02] MEDS: MORPHINE IR 15 MG TABLET PO PRN ×2 (16:26→23:20)
--- NOTE | 2018-10-02 22:45 | NUR ---
Assisted to toilet w/ walker and SBA. Walks on right toes. Eating pudding and jello w/o nausea. Dressing D/I. Back to recliner per request.
[2018-10-03] MEDS: oxyCODONE IR 5 MG TABLET PO PRN ×4 (01:55→21:15)
[2018-10-03] MEDS: IV NORMAL SALINE 1000ML BAG 1,000 ML IV SCH (01:56)
--- NOTE | 2018-10-03 02:00 | NUR ---
Assisted to toilet, then bed. Roxicodone given per request.
[2018-10-03 03:05] VITALS: BP 80/50
[2018-10-03 03:57] LABS: HEMATOCRIT 33.8 % (36.0-47.0); HEMOGLOBIN 10.8 g/dL (12.0-15.5)
[2018-10-03 04:17] LABS: PROTHROMBIN TIME PATIENT 15.8 SEC (11.7-14.0)
[2018-10-03] MEDS: MORPHINE IR 15 MG TABLET PO PRN ×3 (04:51→16:17)
[2018-10-03] MEDS ORDERED: MAGNESIUM HYDROXIDE 2,400 MG/30 ML ORAL.SUSP. PO PRN (06:00)
[2018-10-03] MEDS: ONDANSETRON PF 4 MG/2 ML VIAL. IV SCH ×2 (06:00)
[2018-10-03 06:04] VITALS: BP 84/55
--- NOTE | 2018-10-03 06:44 | NUR ---
BP 84/55, IVF resumed. Denies being dizzy or light headed. In recliner. Call light in reach.
[2018-10-03] MEDS: MULTIVITAMIN with MINERAL TABLET. PO SCH (07:54)
[2018-10-03] MEDS: SENNOSIDES/DOCUSATE 8.6/50MG TABLET. PO SCH (07:54)
[2018-10-03] MEDS: FERROUS SULFATE 325 MG TABLET. PO SCH ×2 (07:54→16:17)
[2018-10-03] MEDS: ONDANSETRON ODT 4 MG TAB.RAPDIS. PO SCH ×2 (07:55)
[2018-10-03] MEDS: ACETAMINOPHEN 500 MG TABLET PO SCH ×3 (07:55→21:15)
[2018-10-03 07:58] VITALS: BP 102/62
--- NOTE | 2018-10-03 09:26 | PDOC ---
ORTHO PROGRESS NOTES Subjective Very little pain. Denies any other complaint or concern. She asks when she can go home. Vitals Vital Signs Date Time Temp Pulse Resp B/P (MAP) Pulse Ox O2 Delivery O2 Flow Rate FiO2 10/03/18 07:58 91 102/62 (75) 94 Room Air 10/03/18 07:57 20 10/03/18 06:04 97.9 2.0 97.9 Labs Laboratory Tests Test 10/02/18 06:50 10/03/18 03:30 Prothrombin Time 14.4 SEC (11.7-14.0) 15.8 SEC (11.7-14.0) Prothromb Time International Ratio 1.2 (0.8-1.1) 1.3 (0.8-1.1) Activated Partial Thromboplast Time 27 SEC (24-38) Hemoglobin 10.8 g/dL (12.0-15.5) Hematocrit 33.8 % (36.0-47.0) Mean Corpuscular Hemoglobin Concent 32 g/dL (31-37) Laboratory Tests Test 10/03/18 03:30 Hemoglobin 10.8 g/dL (12.0-15.5) Hematocrit 33.8 % (36.0-47.0) Mean Corpuscular Hemoglobin Concent 32 g/dL (31-37) Prothrombin Time 15.8 SEC (11.7-14.0) Prothromb Time International Ratio 1.3 (0.8-1.1) Notes She is awake and alert. Sitting in a chair. Normal motor and sensation are present in her legs. Dressing is intact and dry Assessment and Plan I think she is recovering operatively. I did discuss with her that if everything continues to go well she could be discharged home tomorrow. I would anticipate home health. JAMAAL KAHN II, MD Oct 03, 2018 09:26
--- NOTE | 2018-10-03 09:28 | DISCH ---
DISCHARGE INSTRUCTIONS Condition on Discharge Condition on Discharge: Stable Activity After Discharge Activity Instructions for Disc: Activity as tolerated Bathing Instructions: Shower-keep dressing dry Lifting Instructions after Dis: No heavy lifting, Do not lift >10 pounds Exercise Instruction after Dis: Progress as tolerated Driving Instructions after Dis: Do not drive Weight Bearing Status after Di: As tolerated Diet after Discharge Diet after Discharge: Regular Additional Diet Restrictions: resume home diet Diet Texture: Regular Wound Incision Care Wound/Incision Care: Ice to area for comfort, Keep wound/cast CDI, Do not change dressing, Reinforce dressing PRN Wound Care Equipment: Dressings Community/Resources/Services Services at Discharge: Home Health Care Services Contacting the [facility] after DC Call your doctor for: Concerns you may have Follow-Up Follow up with: Rey in 2 wks Treatment/Equipment after DC Adaptive Equipment Issued: None Warfarin Follow-Up Warfarin Follow UP: per pharmacy JAMAAL KAHN II, MD Oct 03, 2018 09:28
--- NOTE | 2018-10-03 09:29 | DISCH ---
DISCHARGE WITH HOME HEALTH DISCHARGE INFORMATION: Discharge Date: Oct 04, 2018 Final Diagnosis: Right total hip arthroplasty Condition on Discharge: Stable HOME HEALTH: Face to Face: I certify this patient is under my care and that I, or a nurse practitioner or physician's quality control assistant working with me, had a face to face encounter that meets the physician face to face encounter requirements with this patient on []. Medical Complications: S/P Joint Replacement Fci For: Admin/Educate Injections Physical Therapy For: Evalulation/Treatment Occupational Therapy For: Evaluation/Treatment POST DISCHARGE ORDERS: Activity Instructions for Disc: Activity as tolerated Weight Bearing Status after Di: As tolerated Bathing Instructions: Shower-keep dressing dry Wound/Incision Care: Ice to area for comfort, Keep wound/cast CDI, Do not change dressing, Reinforce dressing PRN FOLLOW-UP: Follow up with: Rey in 2 wks Warfarin Follow UP: per pharmacy TREATMENT/EQUIPMENT ORDERS: Adaptive Equipment Issued: None CERTIFICATION STATEMENT: Certification Statement: Certification Statement: Based on the above finding, I certify that this patient is confined to the home and needs intermittent detention care, physical therapy and/or speech therapy, or continues to need occupational therapy.~ This patient is under my care, and I have initiated the establishment of the plan of care.~ This patient will be followed by myself or a community physician who will periodically review the plan of care. Home Meds Reported Medications [Jet Alert] No Conflict Check, 1 CAP PO PRN DAILY PRN for SEE COMMENTS 09/20/18 Morphine Sulfate (MORPHINE SULFATE) 15 Mg Tablet, 15 MG PO PRN QID PRN for SEVERE PAIN, TAB 09/20/18 [Bc Powder] No Conflict Check, 1 CAP PO 1X PRN PRN for HEADACHE 09/20/18 Hydrocodone Bit/Acetaminophen (HYDROCODONE-APAP 10-325 ) 1 Tab Tablet, 1 TAB PO PRN Q6HRS PRN for PAIN, TAB 0 Refills 09/20/18 Albuterol Sulfate (VENTOLIN HFA INHALER) 18 Gm Hfa.aer.ad, 2 PUFF INH Q4HRS for for asthma, INHALER 0 Refills 08/30/16 JAMAAL KAHN II, MD Oct 03, 2018 09:29
--- NOTE | 2018-10-03 09:37 | PN ---
DATE: 10/03/2018 DAILY PROGRESS NOTE LOCATION: Room #446. SUBJECTIVE: The patient is awake, alert, has postoperative pain but can tell that her hip feels better. OBJECTIVE: VITAL SIGNS: Stable. She is afebrile. CHEST: Clear. HEART: Regular. ABDOMEN: Benign. NEUROVASCULAR AND EXTREMITIES: The leg is intact. LABORATORY AND DIAGNOSTIC DATA: Hemoglobin is 10.8 this morning. INR is 1.3. IMPRESSION: Status post right total hip replacement. PLAN: Continue current postoperative care including anticoagulation. We will follow along medically, but currently is doing very well. JOÃO WILLIS MD DR: CRISTINE/lynette JOB#: [id number] / [id number]
--- NOTE | 2018-10-03 10:41 | NUR ---
Pharmacy Warfarin Dosing Note S:Pharmacy consulted to assist with anticoagulation therapy started 10/02/18 with target INR: 1.6 - 2.5 O:STEVEN RIGGS is a 53 year old F with STACIE LABS: Last INR: 1.3 Last HGB: 10.8 Last HCT: 33.8 Last PLT: Last dose of 7.5 mg given on 10/02/18 at 1554 Previous Regimen: Vitamin K given: Drug Interaction Changes: Ongoing Drug Interactions: A:INR of 1.3 is below desired range. Target range for this patient is: 1.6 - 2.5 P: Warfarin dose: 5 mg Today at 1600. Bridge Therapy: None Next INR due tomorrow. Pharmacy anticoagulation service will continue to follow. Tarik Mejia [facility], 10/03/18 [id number]
[2018-10-03] MEDS ORDERED: ONDANSETRON PF 4 MG/2 ML VIAL. IV PRN (12:00)
[2018-10-03] MEDS ORDERED: ONDANSETRON ODT 4 MG TAB.RAPDIS. PO PRN (12:00)
--- NOTE | 2018-10-03 15:00 | NUR ---
Tamy has done well and was able to attend both rehab sessions. she has had increase in pain (has a chronic low back pain that requires MSIR) she has been given MSIR and Roxicodone/Tylenol alternating. she is planning on going home tomorrow.
[2018-10-03] MEDS ORDERED: WARFARIN 5 MG TABLET. PO ONE (16:00)
[2018-10-03] MEDS ORDERED: BISACODYL 10 MG SUPP.RECT. PR PRN (16:00)
[2018-10-03 17:42] VITALS: BP 121/74
--- NOTE | 2018-10-03 18:06 | PATHOLOGY ---
[facility] Accession Number: [id number] . 01 Material submitted: . RIGHT HIP BONE . 01 Clinical history: . Right hip DJD . 02 Diagnosis: Femoral head and portion of femoral neck with focal attached soft tissue and synovial tissue, right total hip arthroplasty: - Advanced degenerative arthritis. - Papillary change of synovial tissue showing congestion and focal slight chronic inflammation. (JPM:system development manager; 10/03/2018) MBR/10/03/2018 . 02 Electronically signed: . Navin Shaikh MD, Pathologist NPI- [id number] . 01 Gross description: . The specimen is received in formalin, labeled "Tamy Buchanan, right hip bone", is a femoral head measuring 4.2 x 3.7 x 3.2 cm with attached femoral neck measuring 2.0 cm in length by 4.5 x 2.4 cm. The neck resection margin is smooth and consists of trabeculated, myers to brown, hemorrhagic bone. The articular surface is myers-pink with a focal area of eburnation. Peripheral osteophytes and myers-brown fibrous tissue is present. Heel Nailing Machine Operator tissue is submitted in A1 after decalcification. ([facility]; 10/02/2018) SHS/SHS . 02 Pathologist provided ICD-10: M16.11, M65.9 . 02 CPT . 112981, 183197 Specimen Comment: A courtesy copy of this report has been sent to Specimen Comment: [phone]. Specimen Comment: Report sent to Specimen Comment: A duplicate report has been generated due to demographic updates. Performed at: [address], [place], [place] [id number] MD Haseeb Dfuf MD Phone: [phone] Performed at: 02 [facility] [address] [place] [id number] MD Navin Shaikh MD Phone: [phone]
--- NOTE | 2018-10-03 18:06 | NUR ---
Tamy is up in recliner. she is weepy at this time ; she had a personal problem and does not want to discuss at this time. No family has been in to see.
[2018-10-04] MEDS: ACETAMINOPHEN 500 MG TABLET PO SCH ×2 (03:00→07:48)
[2018-10-04 05:09] LABS: HEMATOCRIT 29.8 % (36.0-47.0)
[2018-10-04] MEDS: MORPHINE IR 15 MG TABLET PO PRN (05:11)
[2018-10-04 06:18] VITALS: BP 93/55
[2018-10-04 07:23] LABS: PROTHROMBIN TIME PATIENT 21.9 SEC (11.7-14.0)
[2018-10-04] MEDS: FERROUS SULFATE 325 MG TABLET. PO SCH (07:48)
[2018-10-04] MEDS: SENNOSIDES/DOCUSATE 8.6/50MG TABLET. PO SCH (07:48)
[2018-10-04] MEDS: MULTIVITAMIN with MINERAL TABLET. PO SCH (07:48)
[2018-10-04] MEDS: oxyCODONE IR 5 MG TABLET PO PRN ×2 (07:52→13:03)
--- NOTE | 2018-10-04 09:22 | PDOC ---
ORTHO PROGRESS NOTES Subjective She is hurting more today but otherwise has no new complaints. Vitals Vital Signs Date Time Temp Pulse Resp B/P (MAP) Pulse Ox O2 Delivery O2 Flow Rate FiO2 10/04/18 07:52 Room Air 10/04/18 06:20 16 10/04/18 06:18 98.4 96 93/55 (68) 95 98.4 Labs Laboratory Tests Test 10/03/18 03:30 10/04/18 04:35 Hemoglobin 10.8 g/dL (12.0-15.5) 10.0 g/dL (12.0-15.5) Hematocrit 33.8 % (36.0-47.0) 29.8 % (36.0-47.0) Mean Corpuscular Hemoglobin Concent 32 g/dL (31-37) 34 g/dL (31-37) Prothrombin Time 15.8 SEC (11.7-14.0) 21.9 SEC (11.7-14.0) Prothromb Time International Ratio 1.3 (0.8-1.1) 1.9 (0.8-1.1) Laboratory Tests Test 10/04/18 04:35 Hemoglobin 10.0 g/dL (12.0-15.5) Hematocrit 29.8 % (36.0-47.0) Mean Corpuscular Hemoglobin Concent 34 g/dL (31-37) Prothrombin Time 21.9 SEC (11.7-14.0) Prothromb Time International Ratio 1.9 (0.8-1.1) Notes She is awake and alert. She is sitting up. Normal motor and sensation are present in her operative extremity. Incision is okay. Assessment and Plan She would still like to go home today and I think that is reasonable. We will adjust her pain medicines. We will get home health arranged. I will see her back in 2 weeks. JAMAAL KAHN II, MD Oct 04, 2018 09:22
--- NOTE | 2018-10-04 10:33 | PN ---
DATE: 10/04/2018 LOCATION: Room 446. SUBJECTIVE: The patient is awake, alert, is much aware of this morning when she was yesterday morning, but felt like she did pretty well during therapy yesterday. OBJECTIVE: VITAL SIGNS: Stable. She is afebrile. GENERAL: She is awake and alert. CHEST: Clear. HEART: Regular. ABDOMEN: Benign. NEUROVASCULAR: Exam of the right lower extremity intact. LABORATORY DATA: Hemoglobin is 10 this morning. INR is 1.9. IMPRESSION: 1. Status post right total hip replacement. 2. Postoperative anemia. 3. Ongoing anticoagulation. PLAN: Continue present, discharge plans per Ortho. We will follow up with her as an outpatient. JOÃO WILLIS MD DR: CRISTINE/lynette JOB#: [id number] / [id number]
--- NOTE | 2018-10-04 12:04 | NUR ---
Pharmacy Warfarin Dosing Note S: Pharmacy consulted to assist with anticoagulation therapy started 10/02/18 O: STEVEN RIGGS is a 53 year old F with STACIE, plan end of therapy 11/12/18 LABS: Last INR: 1.9 Last HGB: 10.0 Last HCT: 29.8 Last dose of 5 mg given on 10/03/18 at 1617 A:INR of 1.9 is within desired range. Target range for this patient is: 1.6 - 2.5 P: Warfarin dose: 1 mg Prior to Discharge Bridge Therapy: None Next INR due 10/06/18 Pharmacy anticoagulation service will continue to follow. REJI SEGAL RP, 10/04/18 [id number]
[2018-10-04] MEDS ORDERED: WARFARIN 1 MG TABLET. PO ONE (12:30)
[2018-10-04 12:43] VITALS: BP 95/65
[2018-10-04] MEDS ORDERED: OXYC1TAB22 PO (13:10)
--- NOTE | 2018-10-04 13:45 | NUR ---
Discharge instruction given with prescription. Answered questions and concerns. Both pt and friend verbalized understanding. Evening dose of Coumadin taken and a pain pill prior to discharge. Home with home health with Katherine. [place].
== END 2018-10-04 13:45 | disposition home health service (06) | DRG 470 ==
LOC: OPSVCIP 05:41 → 4 SOUTHEST 11:10
PROVIDERS: ADMIT Orthopaedic Surgery Sports Medicine; ATTEND Orthopaedic Surgery Sports Medicine
PROC: 0SR906Z Replacement of Right Hip Joint with Oxidized Zirconium on Polyethylene Synthetic Substitute, Open Approach (ICD-10-PCS; principal; 2018-10-02 07:30)
DX: M16.11 Unilateral primary osteoarthritis, right hip (principal); D64.9 Anemia, unspecified; Z98.1 Arthrodesis status; Z91.040 Latex allergy status
CPT/HCPCS: 36415; 72170; 85014; 85018; 85610; 85730; 86850; 86900; 86901; 88304; 88311; 99406; C1713; J0171; J0360; J0696; J0780; J1100; J1885; J2001; J2250; J2270; J2405; J2704; J2710; J2795; J3010; J3490; J7030; J7120; Q0162; 97110; 97116; 97150; 97530; 97535

== ENCOUNTER → 2020-08-21 | Outpatient (CLI) | payer MEDICARE, MEDICAID ==
--- NOTE | 2020-08-21 15:47 | RAD ---
MR#: [id number] Date of Study: 08/21/2020 Ordering Physician: JOÃO WILLIS Referring Physician: ELSA GONZALEZ Tech: APPROVED REPORT Test Type: Exercise Stress Nurse/Tech: ESTEBAN Test Indications: DYSPNEA Cardiac History: SEE EMR Medications: SEE EMR Medical History: SMOKER, SEE EMR Resting ECG: SR Resting Heart Rate: 94 bpm Resting Blood Pressure: 133/89mmHg Pretest Chest Pain: No chest pain Nurse/Tech Notes S1S2, LUNGS CTA, DENIED CP OR SOA. VSS. Stress Symptoms PT C/O HER LEGS BEING "TIRED" DURING TREADMILL TEST. VSS. DENIED CP OR SOA. POST EXERCISE Reason for Termination: Reached target heart rate Target HR: 139 Max HR: 143 bpm 102% of Maximum Predicted HR: 139 bpm Exercise duration: 4:35 min:sec, 2 Stage Exercise capacity: 7.0METs Max Blood Pressure: 152/84mmHg Blood Pressure response to exercise: Normal blood pressure response during stress. Heart Rate response to exercise: WNL Chest Pain: No. Arrhythmia: No. ST Change: No. NO SIGNIFICANT CHANGES FROM BASELINE EKG. Conclusion 1. Normal baseline EKG 2. Adequate workload at 7.0 Mets achieved, no chest pain reported. 3. Normal stress EKG with normal stress BP response 4. Low risk study Signed by : Wayne Chao, Electronically Approved : 08/21/2020 15:47:04
== END ==
LOC: NM 10:21
PROVIDERS: ATTEND Family Medicine
DX: R06.02 Shortness of breath (principal)
CPT/HCPCS: 93017

== ENCOUNTER 2021-05-01 06:07 | Day surgery (SDC) | payer MEDICARE, MEDICAID ==
[~2021-05-01] VITALS: Ht 170.2 cm; Wt 76.8 kg
[~2021-05-01 06:07] MED LIST changes: +GABA300C18 PO; +HYDROmorphone 2 MG/ML VIAL IVP PRN; +IV RINGERS,LACTATED 1000ML 1,000 ML IV SCH; +MORPHINE SULFATE 2 MG/ML INJ. IVP PRN; +PRED-220 PO; +PROCHLORPERAZINE 10 MG/2 ML VIAL. IVP PRN; +ZINC50TA39 PO; +ceFAZolin SODIUM IV Push 1 GM VIAL. IVP PRN; +fentaNYL PF VIAL 100 MCG/2 ML VIAL IVP PRN
[2021-05-01 06:33] VITALS: BP 121/76
[2021-05-01] MEDS ORDERED: PROPOFOL 10 MG/ML (20ML) VIAL. IV ONE (06:53)
[2021-05-01] MEDS ORDERED: MIDAZOLAM HCL/PF 2 MG/2 ML VIAL. ONE (06:53)
[2021-05-01] MEDS ORDERED: ONDANSETRON PF 4 MG/2 ML VIAL. ONE (06:53)
[2021-05-01] MEDS ORDERED: fentaNYL PF VIAL 100 MCG/2 ML VIAL ONE ×2 (06:53→08:43)
[2021-05-01] MEDS ORDERED: FAMOTIDINE 20 MG/2 ML VIAL ONE (06:53)
[2021-05-01] MEDS ORDERED: DEXAMETHASONE SOD PHOS 4 MG/ML VIAL ONE (06:53)
[2021-05-01] MEDS ORDERED: BUPIVACAINE MPF 0.25% 30 ML VIAL. ONE (07:07)
[2021-05-01] MEDS ORDERED: BUPIVACAINE MPF 0.25% 30 ML VIAL. IJ ONE (07:36)
[2021-05-01] MEDS ORDERED: HYDR-2761 PO (07:43)
--- NOTE | 2021-05-01 07:46 | DISCH ---
DISCHARGE INSTRUCTIONS Condition on Discharge Condition on Discharge: Stable Activity After Discharge Activity Instructions for Disc: Other, see below (fine motor use of hand, no hard grasping or heavy lifting) Bathing Instructions: Shower-keep dressing dry Lifting Instructions after Dis: No heavy lifting Exercise Instruction after Dis: Exercise per therapy, Progress as tolerated Weight Bearing Status after Di: Non weight bearing Diet after Discharge Diet after Discharge: Regular Additional Diet Restrictions: resume home diet Diet Texture: Regular Liquid Texture: Thin Liquid Wound Incision Care Wound/Incision Care: Ice to area for comfort, Keep wound elevated, Do not change dressing (keep dressing on for protection unless soiled) Contacting the [facility] after DC Call your doctor for: Concerns you may have Follow-Up Follow up with: Rc or Denita 10 days Treatment/Equipment after DC Adaptive Equipment Issued: None BERTA KHAN MD May 01, 2021 07:46
[2021-05-01] MEDS ORDERED: HYDROcodone/APAP 5/325MG 1 TAB TABLET PO ONE (08:30)
[2021-05-01 09:00] VITALS: BP 115/75
--- NOTE | 2021-05-01 21:28 | PDOC4 ---
Operative Note Operative Note Date of surgery: 05/01/2021 Preoperative diagnosis: Left carpal tunnel syndrome Postoperative diagnosis: Same with moderate median nerve compression Operative procedure: Left carpal tunnel release Surgeon: Rc Assist: Arnaldo wilson Anesthesia: General Estimated blood loss: 2 cc Complications: None Operative indications: Patient is a 56-year-old female with clinical signs of carpal tunnel syndrome with EMG verification and more severe numbness tingling and pain unresponsive with bracing and other nonoperative treatment. I had gone over with her the functional anatomy the risks benefits postoperative course of potential carpal tunnel release, the possibility of incomplete relief possibility of additional nerve or blood vessel damage infection incisional area pain medical or other anesthetic complications among others all her questions were answered she wishes to proceed with surgical evaluation and treatment Operative text: Patient was identified procedure verified patient placed in the supine position on the operating table. After adequate amounts of general anesthesia were administered the left upper extremity was prepped and draped in standard sterile fashion with the upper arm tourniquet and after timeout was performed patient procedure identified and verified the left upper extremity was exsanguinated by Esmarch bandage tourniquet inflated to 250 mmHg and a longitudinal incision was made just distal to the distal palmar crease dissection carried out down to the transverse carpal ligament which was then divided sharply under direct vision toward the ulnar side and division of the transverse carpal ligament was continued with tenotomy scissors both distally and proximally and verified to be complete both visually and palpably. Contents of the carpal tunnel noted the median nerve to be with moderate compression and tendons free from any damage or synovitis. There irrigation carried out normal saline solution 10 cc of half percent plain Marcaine were placed surrounding the incision and closure accomplished with nylon suture in a vertical mattress fa shion. Sterile soft dressings were placed and fingers were noted to be warm pink following deflation of the tourniquet. Patient was returned to recovery room stable condition having tolerated procedure well. Arnaldo wilson was present for the procedure and assisted in patient positioning prepping draping retraction closure and dressings BERTA KHAN MD May 01, 2021 21:28
== END 2021-05-01 09:40 | disposition home or self-care (01) ==
LOC: SURG 06:07
PROVIDERS: ATTEND Orthopaedic Surgery
DX: G56.02 Carpal tunnel syndrome, left upper limb (principal); J44.9 Chronic obstructive pulmonary disease, unspecified; G47.30 Sleep apnea, unspecified; K21.9 Gastro-esophageal reflux disease without esophagitis; M19.90 Unspecified osteoarthritis, unspecified site; F41.9 Anxiety disorder, unspecified; E66.9 Obesity, unspecified; F32.9 Major depressive disorder, single episode, unspecified; Z85.828 Personal history of other malignant neoplasm of skin; Z90.710 Acquired absence of both cervix and uterus; Z98.890 Other specified postprocedural states; Z87.440 Personal history of urinary (tract) infections; Z79.899 Other long term (current) drug therapy; Z87.891 Personal history of nicotine dependence; Z91.040 Latex allergy status; Z88.8 Allergy status to other drugs, medicaments and biological substances
CPT/HCPCS: 64721; A4930; J0690; J1100; J2250; J2405; J2704; J3010; J3490; A4657; A6452